=== PATIENT | female | born 1960 | race Caucasian/White ===

== ENCOUNTER 2018-07-22 06:42 | Day surgery (SDC) | payer OTHER, MEDICAID, SELFPAY ==
[2018-07-22] VITALS (8 sets, daily range): BP systolic 96–140; BP diastolic 64–88; PULSE 65–85; RESP 10–18; TEMP 36.1–36.3; O2SAT 94–96; BMI 47.0
--- NOTE | 2018-07-22 | PATH_ITS ---
[facility] Accession Number: [id number] . 01 Material submitted: . PART A: HEPATIC FLEXURE POLYP PART B: TRANSVERSE COLON POLYP . 02 Diagnosis: A. Hepatic Flexure Polyp: Tubular adenoma. . B. Transverse Colon Polyp: Tubular adenoma. MRV/07/26/2018 . 02 Electronically signed: . Kwame Carter MD, PhD, Pathologist NPI- [id number] . 01 Gross description: . (A) Received in formalin, labeled hepatic flexure polyp, is a fragment of bermeo-white tissue (0.6 x 0.5 x 0.1 cm). Entirely submitted in cassette A1. (B) Received in formalin, labeled transverse colon polyp, is a fragment of bermeo-white tissue (0.5 x 0.4 x 0.2 cm). Entirely submitted in cassette B1. ([id number]) /OZO . 02 Pathologist provided ICD-10: D12.3 . 02 CPT . 823046, [id number] Performed at: 01 [facility] [address] [place] [id number] MD Ortiz Stanford MD Phone: [phone] Performed at: 02 [facility] [address] [place], [place] [id number] MD Pantera Yo MD Phone: [phone]
[2018-07-22] MEDS: SODIUM CHLORIDE 0.9% 1,000 ML 200 ML IV (07:39)
[2018-07-22] MEDS: MIDAZOLAM 5 MG/5 ML VIAL IV (09:07)
[2018-07-22] MEDS: fentaNYL 250 MCG/5 ML INJ IV (09:08)
--- NOTE | 2018-07-22 09:45 | SUR.PHASEI ---
arrived, arousable, fiollows commands soft belly tolerates fluids
--- NOTE | 2018-07-22 09:59 | PM.HP.1 ---
History of Present Illness Date Patient Seen: 07/22/18 Time Patient Seen: 09:59 Chief complaint: [id number] SCREENING COLONOSCOPY Narrative: Pleasant 57-year-old lady with a strong family history of colon cancer. She also has a history of Crohn's disease. She reports that she has had a colonoscopy every 5 years since she was 48 so this is her 3rd scheduled procedure. She says that her father had colon cancer as well as multiple paternal aunts. Someone on her mother's side has colon malignancy as well but she is not sure exactly the relation. She is uncertain if she has had polyps at prior procedures but she remembers being told to show up every 5 years and so that is what she does. She denies any new problems or symptoms related to the function of her GI tract. Patient History Medical History Anxiety (Chronic) Chronic back pain (Chronic) Crohn's disease (Chronic) Depression (Chronic) Gout (Chronic) Hearing loss (Chronic) History of urinary incontinence (Chronic) Kidney stones (Chronic) Migraines (Chronic) Osteoarthritis (Chronic) Rheumatoid arthritis (Chronic) Shoulder pain (Chronic) Sleep apnea (Chronic) Vertigo (Chronic) Family & Social History Family History: Reviewed 07/22/18 by Ninfa Dove MD Social History: household members family Tobacco & Substance use: Smoking Status Current every day smoker Meds Home Medications Medication Instructions Recorded Confirmed Type omeprazole 20 mg PO BID #180 cap 03/27/17 07/22/18 Rx atenolol 50 mg tablet See Label Instructions .ROUTE 04/19/18 07/22/18 Rx .COMPLEX #45 tab citalopram 20 mg tablet See Label Instructions PO BID #60 04/19/18 07/22/18 Rx tab furosemide 40 mg tablet See Label Instructions PO QDAY PRN 04/19/18 07/22/18 Rx #30 tab trazodone 50 mg tablet See Label Instructions PO HS PRN 04/19/18 07/22/18 Rx #180 tab alprazolam 0.25 mg tablet 0.25 mg PO Q8HP PRN #30 tab 06/30/18 07/22/18 Rx hydrocodone 7.5 mg-acetaminophen See Label Instructions .ROUTE 06/30/18 07/22/18 Rx 325 mg tablet .COMPLEX PRN #100 tab Allergies Allergy/AdvReac Type Severity Reaction Status Date / Time lidocaine [LIDOCAINE] Allergy Unknown Verified 07/22/18 08:36 Penicillins [PENICILLINS] Allergy Unknown Verified 07/22/18 08:36 prednisone [PREDNISONE] Allergy Unknown Verified 07/22/18 08:36 shellfish derived Allergy Unknown Verified 07/22/18 08:36 [SHELLFISH DERIVED] venom-honey bee Allergy Unknown Verified 07/22/18 08:36 [BEE VENOM (HONEY BEE)] procaine [PROCAINE] AdvReac Unknown Verified 07/22/18 08:36 Review of Systems Review of Systems All systems reviewed & are unremarkable except as noted in HPI and below Exam Vital Signs (past 8 hours): - 07/22/18 07:28 07/22/18 09:36 07/22/18 09:38 Temperature 97.3 F L 97.1 F L Pulse Rate 85 65 77 Respiratory Rate 18 16 10 L Blood Pressure 140/75 112/71 122/71 Pulse Oximetry 95 96 94 07/22/18 09:41 07/22/18 09:44 Temperature Pulse Rate 68 67 Respiratory Rate 16 12 Blood Pressure 96/67 104/64 Pulse Oximetry 95 95 Oxygen Delivery Method Room Air Oxygen Flow Rate 3 Narrative Exam Narrative: Pleasant but morbidly obese lady in no distress. HEENT: Normocephalic and atraumatic, pupils equal round reactive to light accommodation with anicteric sclera. Poor dentition is noted. Lungs: Clear bilaterally Heart: Distant heart sounds but regular rate and rhythm Abdomen: Very obese, globally tender to palpation, active bowel sounds Extremities: Warm and well perfused Assessment & Plan Plan: Assessment/Plan Narrative: Pleasant lady with multiple comorbidities who presents for a screening colonoscopy. We discussed the risks and benefits of the procedure the patient expressed desire to continue today.
--- NOTE | 2018-07-22 10:03 | PM.OP.1 ---
Operative Date/Time/Diagnoses Date of procedure: 07/22/18 Time of procedure: 10:03 Pre-op diagnosis: Family history of colon cancer Screening Post-op diagnosis: same Procedure & Clinicians Procedure: Colonoscopy to the cecum with polypectomy times 2 Same procedure as scheduled: Yes Indications: Last colonoscopy 5 years ago Surgeon: Ninfa Dove Anesthesia Type: Sedation (Versed 9 mg; fentanyl 300 mcg) Operative Notes Findings: 1. Adequate prep 2. Two sessile polyps. One at the hepatic flexure and the other in the mid transverse colon. Both removed with cold forceps and submitted for pathology 3. No obvious inflammation of the mucosa is appreciated 4. Mildly tortuous: 5. Minimal sigmoid diverticulosis. 6. Grade 2 internal hemorrhoids Closure Type: not applicable Specimen(s): other (Polyps as noted and findings) Estimated Blood Loss (mL): 2 Procedure in detail: After obtaining informed consent, the patient was brought to the GI suite and placed in the left lateral decubitus position on the examination table. After placement of appropriate monitors, the patient was given incremental doses of Versed and Fentanyl until an appropriate level of sedation was achieved. A time out was held per SCOAP protocol. A digital rectal examination was performed and did not reveal any masses or obstructing lesions. The colonoscope was gently passed into the patient's anus and the entire colon navigated to the level of the cecum with mild difficulty. Once in the cecum, the scope was withdrawn being sure to go before and beyond all mucosal folds and prominences and get an excellent examination. The findings are noted above. At the level of the rectal vault, the scope was retroflexed and the internal anal canal was examined. The scope was straightened and air aspirated from the colon. The instrument was removed from the patient's body and the procedure was concluded. The patient was allowed to awaken from sedation without difficulty and taken to the post-anesthesia care unit in good condition. Total sedation time was 37 min Total withdrawal time was 21 min Complications: none Condition: stable Disposition: PACU Plan for aftercare: 1. Discharge to home 2. Plan for next colonoscopy in 5 years or as clinically indicated 3. We will contact you with pathology results and any further recommendations
== END 2018-07-22 10:50 | disposition home or self-care (01) ==
PROVIDERS: Family Provider Family Medicine; PCP Family Medicine; Visit Provider Surgery
PROC: 0DJD8ZZ Inspection of Lower Intestinal Tract, Via Natural or Artificial Opening Endoscopic (ICD-10-PCS; CPT 45378; principal; 2018-07-22 07:45)
DX: Z12.11 Encounter for screening for malignant neoplasm of colon (principal); D12.3 Benign neoplasm of transverse colon; K50.90 Crohn's disease, unspecified, without complications; K64.1 Second degree hemorrhoids; E66.01 Morbid (severe) obesity due to excess calories; Z68.42 Body mass index [BMI] 45.0-49.9, adult; M06.9 Rheumatoid arthritis, unspecified; F41.9 Anxiety disorder, unspecified; F32.9 Major depressive disorder, single episode, unspecified; G47.30 Sleep apnea, unspecified; Z80.0 Family history of malignant neoplasm of digestive organs; M54.9 Dorsalgia, unspecified; G89.29 Other chronic pain; F17.200 Nicotine dependence, unspecified, uncomplicated; Z79.899 Other long term (current) drug therapy
CPT/HCPCS: 45380; 88305; 99152; 99153; J2250; J3010

== ENCOUNTER 2018-12-13 18:24 | Emergency (ER) | payer OTHER, MEDICAID, SELFPAY ==
[2018-12-13 18:27] VITALS: BP 124/74; PULSE 70; RESP 22; TEMP 37.4; O2SAT 96
--- NOTE | 2018-12-13 18:44 | ED_ITS ---
HPI - Extremity Problem General Chief complaint: Extremity Problem,Nontraumatic Stated complaint: Leg pain Time Seen by Provider: 12/13/18 18:43 Source: patient Mode of arrival: ambulatory Limitations: no limitations History of Present Illness HPI Narrative: Patient is a 58-year-old female who underwent a heart catheterization with access the right femoral artery several days ago. She states since then she has had pain in her right leg radiating down her right foot. She has been taking her pain medication at home without any relief. No chest pain or shortness of breath. She called her funeral workers who told her to come to the emergency department to evaluate for possible DVT. Related Data Previous Rx's Medication Instructions Recorded omeprazole 20 mg PO BID #180 cap 03/27/17 atenolol 50 mg tablet See Rx Instructions .ROUTE 04/19/18 .COMPLEX #45 tab citalopram 20 mg tablet See Rx Instructions PO BID #60 tab 04/19/18 furosemide 40 mg tablet See Rx Instructions PO QDAY PRN 04/19/18 #30 tab trazodone 50 mg tablet See Rx Instructions PO HS PRN #180 04/19/18 tab hydrocodone 7.5 mg-acetaminophen See Rx Instructions .ROUTE 11/29/18 325 mg tablet .COMPLEX PRN #100 tab MDD EXEMPT alprazolam 0.25 mg tablet 0.25 mg PO Q8HP PRN #30 tab 11/30/18 Allergies Allergy/AdvReac Type Severity Reaction Status Date / Time lidocaine [LIDOCAINE] Allergy Unknown Verified 07/22/18 08:36 Penicillins [PENICILLINS] Allergy Unknown Verified 07/22/18 08:36 prednisone [PREDNISONE] Allergy Unknown Verified 07/22/18 08:36 shellfish derived Allergy Unknown Verified 07/22/18 08:36 [SHELLFISH DERIVED] venom-honey bee Allergy Unknown Verified 07/22/18 08:36 [BEE VENOM (HONEY BEE)] procaine [PROCAINE] AdvReac Unknown Verified 07/22/18 08:36 Review of Systems Constitutional Denies fever(s) and Denies headache(s) ENT Ears, Nose, Mouth, and Throat: Denies headache(s) Cardiovascular Denies chest pain and Denies dyspnea Respiratory Denies dyspnea Gastrointestinal Gastrointestinal: Denies abdominal pain, Denies nausea and Denies vomiting Musculoskeletal Comments: Pain radiating down her right leg Integumentary/Breasts Denies rash Neurologic Denies headache(s) Hematologic/Lymphatic Denies easy bleeding and Denies easy bruising PFSH Social History household members: family Smoking Status: Current every day smoker Exam Initial Vital Signs Initial Vital Signs: Vital Signs Temperature 99.3 F 12/13/18 18:27 Pulse Rate 70 12/13/18 18:27 Respiratory Rate 22 12/13/18 18:27 Blood Pressure 124/74 12/13/18 18:27 Pulse Oximetry 96 12/13/18 18:27 Const General: cooperative, healthy appearing, comfortable, well developed, well groomed and No acute distress Orientation: alert, awake and oriented x3 HENMT Head: normal to inspection and normocephalic Chest Chest: normal inspection of the chest Breast inspection: normal inspection of the breasts Resp Effort & Inspection: normal respiratory effort Cardio Rate: regular rate GI Inspection: non-distended Palpation: soft Skin Other: No bruising or redness in the right proximal anterior thigh. Neuro General: alert, awake and oriented x3 Extrem Other: Tenderness to palpation on the medial aspect of the right thigh and behind the right knee. Psych Appearance: grossly normal and well kempt Course Orders Ordered: ED Orders 12/13/18 18:49 US periph venous low extrem rt Stat Vital Signs - 8 hr 12/13/18 18:27 12/13/18 19:00 12/13/18 20:19 Temperature 99.3 F Pulse Rate 70 103 H 57 L Respiratory Rate 22 14 19 Blood Pressure 124/74 Blood Pressure [Left Arm] 113/73 97/58 L Pulse Oximetry 96 96 92 12/13/18 20:30 12/13/18 21:05 Temperature Pulse Rate 53 L Respiratory Rate 16 Blood Pressure Blood Pressure [Left Arm] 113/67 94/54 L Pulse Oximetry 94 MDM - Extremity (Nontraumatic) Imaging Data Right DVT ultrasound: Radiologist's impression: PROCEDURE: US PERIPH VENOUS LOW EXTREM RT INDICATIONS: RIGHT LEG PAIN 1 WEEK POST ANGIO-CATH TECHNIQUE: Real-time imaging, as well as color and pulse Doppler interrogation, were performed of the lower extremity deep veins from the inguinal ligament to the popliteal fossa. COMPARISON: None. FINDINGS: The deep veins are normally compressible, and free of intraluminal thrombus. Color and pulse Doppler demonstrate normal phasic intraluminal flow. There is normal augmentation response to distal compression maneuver. IMPRESSION: No DVT in the right lower extremity. Dictated by: Santos Pope M.D. on 12/13/2018 at 20:53 Approved by: Santos Pope M.D. on 12/13/2018 at 20:54 ECG Data Attestation EKG: I personally reviewed and interpreted this ECG as follows: Prior ECG tracings: not available for review Interpretation: Sinus rhythm Ventricular rate is 60 Normal axis Normal QRS Normal QTC No ST T wave changes MDM Narrative Medical decision making narrative: No DVT right lower extremity per ultrasound. No signs of infection. She does have full range of motion of her right lower extremity. Hold on further workup for now. Patient was given return precautions. She expressed understanding and agreement with plan. Discharge Plan Departure Patient Disposition: Home Clinical Impression: Acute leg pain Qualifiers: Laterality: right Qualified Code(s): M79.604 - Pain in right leg Discharge Date/Time: 12/13/18 21:24 Interventions: ED Discharge Assessment Last Done: 12/13/18 21:20 Instructions: DI for Leg Pain Activity Restrictions/Additional Instructions: Continue all of your medications as directed. Continue your home pain medication. Contact your funeral workers for follow-up. Return to the emergency department for any new or worsening symptoms Prescriptions: No Action omeprazole 20 MG capsule,delayed release(DR/EC) 20 mg PO BID Qty: 180 RF: 3 citalopram [Celexa] 20 mg tablet See Rx Instructions PO BID Qty: 60 RF: 3 atenolol 50 mg tablet See Rx Instructions .ROUTE .COMPLEX Qty: 45 RF: 3 trazodone 50 mg tablet See Rx Instructions PO HS PRN (Reason: insomnia) Qty: 180 RF: 0 furosemide 40 mg tablet See Rx Instructions PO QDAY PRN (Reason: edema) Qty: 30 RF: 3 hydrocodone-acetaminophen [[place]] 7.5-325 mg tablet See Rx Instructions .ROUTE .COMPLEX MDD EXEMPT PRN (Reason: pain) Qty: 100 RF: 0 alprazolam 0.25 mg tablet 0.25 mg PO Q8HP PRN (Reason: anxiety/agitation) Qty: 30 RF: 0 Referrals: Ozzie Sheriff MD [Primary Care Provider] -
--- NOTE | 2018-12-13 18:49 | DI.US.S_ITS ---
PROCEDURE: US PERIPH VENOUS LOW EXTREM RT INDICATIONS: RIGHT LEG PAIN 1 WEEK POST ANGIO-CATH TECHNIQUE: Real-time imaging, as well as color and pulse Doppler interrogation, were performed of the lower extremity deep veins from the inguinal ligament to the popliteal fossa. COMPARISON: None. FINDINGS: The deep veins are normally compressible, and free of intraluminal thrombus. Color and pulse Doppler demonstrate normal phasic intraluminal flow. There is normal augmentation response to distal compression maneuver. IMPRESSION: No DVT in the right lower extremity. Dictated by: Santos Pope M.D. on 12/13/2018 at 20:53 Approved by: Santos Pope M.D. on 12/13/2018 at 20:54
[2018-12-13 19:00] VITALS: BP 113/73; PULSE 103; RESP 14; O2SAT 96
[2018-12-13 20:19] VITALS: BP 97/58; PULSE 57; RESP 19; O2SAT 92
[2018-12-13 20:30] VITALS: BP 113/67; PULSE 53; RESP 16; O2SAT 94
[2018-12-13 21:05] VITALS: BP 94/54
== END 2018-12-13 21:24 | disposition home or self-care (01) ==
PROVIDERS: Emergency Provider Emergency Medicine; Family Provider Family Medicine; PCP Family Medicine
DX: M79.604 Pain in right leg (principal)
CPT/HCPCS: 36591; 93005; 93971; 99283; 99284

== ENCOUNTER 2019-09-17 03:07 | Emergency (ER) | payer OTHER, MEDICAID, SELFPAY ==
--- NOTE | 2019-09-17 03:17 | DI.RAD.S_ITS ---
PROCEDURE: XR CHEST 1V INDICATIONS: chest pain TECHNIQUE: One view of the chest was acquired. COMPARISON: [facility], , CHEST 2 VIEW, 09/19/2017, 17:27. FINDINGS: Surgical changes and devices: None. Lungs and pleura: Lungs are clear. No pleural effusions or pneumothorax. Mediastinum: Mediastinal contours appear normal. Heart size is mildly enlarged. Bones and chest wall: No suspicious bony lesions. Overlying soft tissues appear unremarkable. IMPRESSION: Mild cardiomegaly without overt heart failure. No pneumonia. Note: The preliminary ED physician interpretation and the final report are concordant. Dictated by: Sami Choi M.D. on 09/17/2019 at 7:09 Approved by: Sami Choi M.D. on 09/17/2019 at 7:10
[2019-09-17 03:19] VITALS: BP 96/62; PULSE 57; RESP 20; TEMP 36.6; O2SAT 97
[2019-09-17 03:30] VITALS: BP 96/62; PULSE 58; RESP 20; O2SAT 96
--- NOTE | 2019-09-17 03:35 | ED.CHESTPAIN ---
HPI - Chest Pain General Chief Complaint: Chest Pain Stated Complaint: Chest pain Time Seen by Provider: 09/17/19 03:07 Source: patient and EMS Mode of arrival: EMS Limitations: no limitations History of Present Illness HPI narrative: Patient is a 59-year-old female with known coronary artery disease and stents placed in December 2018 at [facility] presenting this evening with chest discomfort. She says she had she has restroom while on the toilet she had chest pain that radiated down her left arm. She got nitroglycerin prior to arrival her chest pain is improving. Her blood pressure however decreased at after the nitroglycerin. She denies any shortness of breath. She apparently is supposed to be on a Holter monitor however the battery or something in the of and happened tonight is not on the Holter monitor. Patient states she is being considered for an ICD. She said pain this evening feels like previous NE. complaint: chest pain Duration: improved Onset: during rest Pain location: substernal Quality: sharp Pain radiation: LUE Related Data Previous Rx's Medication Instructions Recorded omeprazole 20 mg PO BID #180 cap 03/27/17 furosemide 40 mg tablet See Rx Instructions PO QDAY PRN 04/19/18 #30 tab apixaban 5 mg tablet 5 mg PO BID #180 tab 08/15/19 atorvastatin 40 mg tablet 40 mg PO DAILY #90 tab 08/15/19 clopidogrel 75 mg tablet 75 mg PO DAILY #90 tab 08/15/19 lisinopril 5 mg tablet 5 mg PO DAILY #90 tab 08/15/19 metoprolol tartrate 25 mg tablet 25 mg PO BID #180 tab 08/15/19 hydrocodone 7.5 mg-acetaminophen See Rx Instructions .ROUTE 08/19/19 325 mg tablet .COMPLEX PRN #100 tab MDD EXEMPT venlafaxine 37.5 mg 37.5 mg PO BEDTIME #30 cap 08/23/19 capsule,extended release 24 hr alprazolam 0.25 mg tablet 0.25 mg PO Q8HP PRN #40 tab 09/14/19 Allergies Allergy/AdvReac Type Severity Reaction Status Date / Time lidocaine [LIDOCAINE] Allergy Unknown Verified 09/14/19 14:53 Penicillins [PENICILLINS] Allergy Unknown Verified 09/14/19 14:53 prednisone [PREDNISONE] Allergy Unknown Verified 09/14/19 14:53 shellfish derived Allergy Unknown Verified 09/14/19 14:53 [SHELLFISH DERIVED] venom-honey bee Allergy Unknown Verified 09/14/19 14:53 [BEE VENOM (HONEY BEE)] procaine [PROCAINE] AdvReac Unknown Verified 09/14/19 14:53 Review of Systems Review of Systems Narrative: GENERAL: Denies chills, fatigue, malaise, fever, sweats, travel HEENT: Denies sinus pain, ear pain, sore throat, difficulty swallowing, neck pain RESPIRATORY: Denies dyspnea, cough, wheezing, hemoptysis, sputum. CARDIOVASCULAR: See HPI GASTROINTESTINAL: Denies nausea, vomiting, abdominal pain, diarrhea, constipation, melena. : Denies dysuria, frequency, incontinence, hematuria, urinary retention, flank pain. MUSCULOSKELETAL: Denies weakness, joint pain, or bony pain SKIN: No rash, no erythema, no pruritus NEUROLOGIC: Denies weakness, dizziness, headache, numbness, change in speech, confusion PSYCHIATRIC: No concerning psychosocial issues. 12 point review of systems is negative except for those stated above and HPI Patient History Medical History (Updated 09/17/19 @ 05:10 by Komal Guzman DO) Anxiety (Chronic) Chronic back pain (Chronic) Coronary artery disease (Acute) Crohn's disease (Chronic) Depression (Chronic) Esophageal reflux (Acute) Gout (Chronic) Hearing loss (Chronic) History of urinary incontinence (Chronic) Kidney stones (Chronic) Migraines (Chronic) Osteoarthritis (Chronic) Rheumatoid arthritis (Chronic) Shoulder pain (Chronic) Sleep apnea (Chronic) Vertigo (Chronic) Surgical History History of hysterectomy (Acute ~2000) Family History Brother Age: 54 Hypertension High cholesterol Father Diabetes mellitus Heart disease Hypertension Grandmother Heart disease Mother Age: 78 Heart disease Grandfather Stroke Grandfather Stroke Grandmother Cancer Sister Liver failure Social History household members: family Smoking Status: Current every day smoker tobacco type: cigarettes alcohol intake frequency: 0-2 drinks per day Exam Initial Vital Signs Initial Vital Signs: Vital Signs Temperature 97.8 F 09/17/19 03:19 Pulse Rate 57 L 09/17/19 03:19 Respiratory Rate 20 09/17/19 03:19 Blood Pressure 96/62 09/17/19 03:19 Pulse Oximetry 97 09/17/19 03:19 GENERAL: Overweight well-appearing female and in no acute distress. HEENT: Head atraumatic,EOMI, pupils reactive, face symmetric, moist mucous membranes CARDIOVASCULAR: Regular rate and rhythm without murmurs, rubs or gallops. RESPIRATORY: Breath sounds equal bilaterally, no wheezes rales or rhonchi. ABDOMEN: Soft, nontender. Normoactive bowel sounds all 4 quadrants. No guarding or rebound. EXTREMITIES: Normal range of motion, no clubbing or edema. Neurovascularly intact NEUROLOGICAL: Alert and oriented x4.Normal gait and speech. Cranial nerves II through XII grossly intact. SKIN: Warm, dry, no laceration, no petechiae, no rashes or lesions. Course Orders Ordered: ED Orders 09/17/19 03:13 EKG-12 Lead Stat 09/17/19 03:17 XR chest 1V Stat 09/17/19 03:43 B Type Natriuretic Peptide Stat Complete Blood Count AUTO DIFF Stat Comprehensive Metabolic Panel Stat Lipase Stat Partial Thromboplastin Time Stat Prothrombin Time INR Stat Troponin & CK Cardiac Panel Stat Consultations Consultation #1: Dr. Rock, hospitalist at [facility] updated patient's symptoms test results she reviewed records. Agrees to transfer for chest pain observation Time: 04:51 Vital Signs Vital signs: Vital Signs - 8 hr 09/17/19 03:19 09/17/19 03:30 09/17/19 04:00 Temperature 97.8 F Pulse Rate 57 L 58 L 58 L Respiratory Rate 20 20 16 Blood Pressure 96/62 Blood Pressure [Left Arm] 96/62 107/63 Pulse Oximetry 97 96 96 09/17/19 04:30 09/17/19 05:00 Temperature 98.0 F Pulse Rate 59 L 58 L Respiratory Rate 18 16 Blood Pressure Blood Pressure [Left Arm] 110/68 113/52 L Pulse Oximetry 98 96 MDM - Chest Pain Lab Data Attestation: I reviewed the patient's lab results. Result diagrams: 09/17/19 03:43 09/17/19 03:43 Labs: Lab Results 09/17/19 09/17/19 09/17/19 Range/Units 03:43 03:43 03:43 WBC 10.6 (4.5-11.0) X10^3/uL RBC 4.45 (4.0-5.2) X10^6/uL Hgb 13.6 (12.0-16.0) g/dL Hct 39.7 (36-46) % MCV 89.2 (80-100) fL MCH 30.6 (26-34) PG MCHC 34.3 (30-36) % RDW 14.0 (11.6-14.8) % Plt Count 250 (150-400) X10^3/uL Neut % (Auto) 65.9 (50-75) % Lymph % (Auto) 23.4 L (25-40) % Turner % (Auto) 7.9 (3-14) % Eos % (Auto) 2.1 (2-4) % Baso % (Auto) 0.7 (0-2) % Neut # (Auto) 7000 (9505-4075) /uL Lymph # (Auto) 2500 (7393-8985) /uL Turner # (Auto) 800 (0-900) /uL Eos # (Auto) 200 (0-450) /uL Baso # (Auto) 100 (0-100) /uL PT 11.8 (10.1-12.7) SECONDS INR 1.0 (0.9-1.3) APTT 38 H (26.4-36.2) SECONDS Sodium (137-145) mmol/L Potassium (3.4-5.1) mmol/L Chloride (98-107) mmol/L Carbon Dioxide (22-32) mmol/L BUN (7-17) mg/dL Creatinine (0.52-1.04) mg/dL Estimated GFR (>60) mL/min BUN/Creatinine Ratio (6-22) Glucose (80-110) mg/dL Calcium (8.4-10.2) mg/dL Total Bilirubin (0.2-1.3) mg/dL AST (14-36) IU/L ALT (<35) IU/L Alkaline Phosphatase (38-126) U/L Total Creatine Kinase (30-135) U/L CK-MB (CK-2) CK-MB (CK-2) Rel Index Troponin I (0.01-0.034) ng/mL B-Natriuretic Peptide < 100 (<100) Total Protein (6.3-8.2) g/dL Albumin (3.5-5.0) g/dL Globulin (1.7-4.1) g/dL Albumin/Globulin Ratio (1.0-2.8) Lipase (23-300) U/L 09/17/19 Range/Units 03:43 WBC (4.5-11.0) X10^3/uL RBC (4.0-5.2) X10^6/uL Hgb (12.0-16.0) g/dL Hct (36-46) % MCV (80-100) fL MCH (26-34) PG MCHC (30-36) % RDW (11.6-14.8) % Plt Count (150-400) X10^3/uL Neut % (Auto) (50-75) % Lymph % (Auto) (25-40) % Turner % (Auto) (3-14) % Eos % (Auto) (2-4) % Baso % (Auto) (0-2) % Neut # (Auto) (6697-9495) /uL Lymph # (Auto) (4253-8674) /uL Turner # (Auto) (0-900) /uL Eos # (Auto) (0-450) /uL Baso # (Auto) (0-100) /uL PT (10.1-12.7) SECONDS INR (0.9-1.3) APTT (26.4-36.2) SECONDS Sodium 139 (137-145) mmol/L Potassium 4.0 (3.4-5.1) mmol/L Chloride 106 (98-107) mmol/L Carbon Dioxide 26 (22-32) mmol/L BUN 15 (7-17) mg/dL Creatinine 0.50 L (0.52-1.04) mg/dL Estimated GFR > 60.0 (>60) mL/min BUN/Creatinine Ratio 30.0 H (6-22) Glucose 140 H (80-110) mg/dL Calcium 9.0 (8.4-10.2) mg/dL Total Bilirubin 0.3 (0.2-1.3) mg/dL AST 17 (14-36) IU/L ALT 15 (<35) IU/L Alkaline Phosphatase 59 (38-126) U/L Total Creatine Kinase 45 (30-135) U/L CK-MB (CK-2) TNP CK-MB (CK-2) Rel Index TNP Troponin I < 0.012 (0.01-0.034) ng/mL B-Natriuretic Peptide (<100) Total Protein 6.4 (6.3-8.2) g/dL Albumin 3.7 (3.5-5.0) g/dL Globulin 2.7 (1.7-4.1) g/dL Albumin/Globulin Ratio 1.4 (1.0-2.8) Lipase 101 (23-300) U/L ECG Data Attestation: I personally reviewed and interpreted this ECG as follows: Prior ECG tracings: available for review Interpretation: Normal sinus rhythm rate 57 p.r. in T3 QRS [address] elevations she pressure to or T-wave inversion. Q-waves noted in lead 3 only similar to previous EKGs. MDM Narrative Medical decision making narrative: Patient received nitroglycerin prior to arrival. However pain was quite severe and similar to previous NE. Her pain was improving and resolved in the ED. Her blood pressure initially was stable and then decreased to a systolic of 80s and she responded well to a 500 cc bolus. She has no shortness of breath. She is on Eliquis and Plavix, at this time I do not think PE. Patient being transferred to [facility]. Stress testing and other cardiac testing not available at [facility]. Dr. Rock accepts patient. I do not find in the records anything about an ICD. Discharge Plan Departure Patient Disposition: [facility] Clinical Impression: Chest pain Qualifiers: Chest pain type: unspecified Qualified Code(s): R07.9 - Chest pain, unspecified Prescriptions: No Action omeprazole 20 MG capsule,delayed release(DR/EC) 20 mg PO BID Qty: 180 RF: 3 furosemide 40 mg tablet See Rx Instructions PO QDAY PRN (Reason: edema) Qty: 30 RF: 3 atorvastatin 40 mg tablet 40 mg PO DAILY Qty: 90 RF: 3 clopidogrel 75 mg tablet 75 mg PO DAILY Qty: 90 RF: 0 lisinopril 5 mg tablet 5 mg PO DAILY Qty: 90 RF: 3 metoprolol tartrate 25 mg tablet 25 mg PO BID Qty: 180 RF: 3 Eliquis 5 mg tablet 5 mg PO BID Qty: 180 RF: 2 hydrocodone-acetaminophen [[place]] 7.5-325 mg tablet See Rx Instructions .ROUTE .COMPLEX MDD EXEMPT PRN (Reason: pain) Qty: 100 RF: 0 venlafaxine 37.5 mg capsule,extended release 24hr 37.5 mg PO BEDTIME Qty: 30 RF: 5 alprazolam 0.25 mg tablet 0.25 mg PO Q8HP PRN (Reason: anxiety/agitation) Qty: 40 RF: 0 Referrals: Ozzie Sheriff MD [Primary Care Provider] -
[2019-09-17 04:00] VITALS: BP 107/63; PULSE 58; RESP 16; O2SAT 96
[2019-09-17 04:00] LABS: Add Manual Diff / Slide Review NO; Basophils Absolute Auto 100 /uL (0-100); Basophils Percent Auto 0.7 % (0-2); Eosinophils Absolute Auto 200 /uL (0-450); Eosinophils Percent Auto 2.1 % (2-4); Hematocrit 39.7 % (36-46); Hemoglobin 13.6 g/dL (12.0-16.0); Lymphocytes Absolute Auto 2500 /uL (1100-4500); Lymphocytes Percent Auto 23.4 % (25-40); Mean Corpuscular HGB Conc 34.3 % (30-36); Mean Corpuscular Hemoglobin 30.6 PG (26-34); Mean Corpuscular Volume 89.2 fL (80-100); Monocytes Absolute Auto 800 /uL (0-900); Monocytes Percent Auto 7.9 % (3-14); Neutrophils Absolute Auto 7000 /uL (1500-7000); Neutrophils Percent Auto 65.9 % (50-75); Platelet Count 250 X10^3/uL (150-400); Red Blood Cell Count 4.45 X10^6/uL (4.0-5.2); White Blood Cell Count 10.6 X10^3/uL (4.5-11.0)
[2019-09-17 04:02] LABS: Prothrombin Time 11.8 SECONDS (10.1-12.7)
[2019-09-17 04:05] LABS: PTT Partial Thromboplastin Tim 38 SECONDS (26.4-36.2)
[2019-09-17 04:07] LABS: Alanine Aminotransferase 15 IU/L (<35); Albumin 3.7 g/dL (3.5-5.0); Albumin Globulin Ratio 1.4 (1.0-2.8); Alkaline Phosphatase 59 U/L (38-126); Aspartate Aminotransferase 17 IU/L (14-36); Bilirubin Total 0.3 mg/dL (0.2-1.3); Blood Urea Nitrogen 15 mg/dL (7-17); Carbon Dioxide 26 mmol/L (22-32); Chloride 106 mmol/L (98-107); Creatine Kinase 45 U/L (30-135); Estimated Glomerular Filt Rate > 60.0 mL/min (>60); Globulin 2.7 g/dL (1.7-4.1); Glucose 140 mg/dL (80-110); HEMOLYSIS < 15 (0-50); Lipase 101 U/L (23-300); Sodium 139 mmol/L (137-145); Total Protein 6.4 g/dL (6.3-8.2)
[2019-09-17 04:18] LABS: Troponin I < 0.012 ng/mL (0.01-0.034)
[2019-09-17 04:21] LABS: B Type Natriuretic Peptide < 100 (<100)
[2019-09-17 04:30] VITALS: BP 110/68; PULSE 59; RESP 18; O2SAT 98
[2019-09-17 05:00] VITALS: BP 113/52; PULSE 58; RESP 16; TEMP 36.7; O2SAT 96
== END 2019-09-17 07:13 | disposition short-term general hospital (02) ==
PROVIDERS: Emergency Provider Emergency Medicine; PCP Family Medicine
DX: R07.9 Chest pain, unspecified (principal); I25.10 Atherosclerotic heart disease of native coronary artery without angina pectoris; Z95.5 Presence of coronary angioplasty implant and graft
CPT/HCPCS: 36415; 71045; 80053; 82550; 83690; 83880; 84484; 85025; 85610; 85730; 93005; 99283; 99285

== ENCOUNTER → 2019-10-07 15:24 | Outpatient (CLI) | payer OTHER, MEDICAID, SELFPAY ==
--- NOTE | 2019-10-07 15:25 | DI.RAD.S_ITS ---
PROCEDURE: XR CHEST 2V INDICATIONS: on going cough TECHNIQUE: 2 views of the chest were acquired. COMPARISON: [facility], , CHEST 2 VIEW, 09/19/2017, 17:27. [facility], , CHEST 2 VIEW, 01/04/2017, 21:16. [facility], , XR CHEST 1V, 09/17/2019, 3:21. FINDINGS: Surgical changes and devices: None. Lungs and pleura: Lungs are clear, aside from right medial lung base air space opacity and right perihilar atelectasis. No pleural effusions or pneumothorax. Mediastinum: Mediastinal contours are normal. Heart size is normal. Bones and chest wall: No suspicious bony abnormalities. Soft tissues appear unremarkable. IMPRESSION: 1. Right medial lung base airspace opacity suspicious for aspiration or pneumonia. Neoplasm cannot be excluded and continued followup is recommended to resolution. Dictated by: Bashir JULIAN Interpreted: Dawit Hawkins MD on 10/07/2019 at 16:03 Approved by: Dawit Hawkins M.D. on 10/07/2019 at 16:22
== END ==
PROVIDERS: PCP Family Medicine; Visit Provider Family Medicine
DX: R05 Cough (principal); Z87.01 Personal history of pneumonia (recurrent)
CPT/HCPCS: 71046

== ENCOUNTER 2020-02-29 17:34 | Emergency (ER) | payer OTHER, MEDICAID, SELFPAY ==
[2020-02-29 17:41] VITALS: BP 140/86; PULSE 69; RESP 24; TEMP 36.4; O2SAT 97
[2020-02-29 18:12] LABS: Add Manual Diff / Slide Review NO; Basophils Absolute Auto 100 /uL (0-100); Basophils Percent Auto 0.9 % (0-2); Eosinophils Absolute Auto 300 /uL (0-450); Eosinophils Percent Auto 2.5 % (2-4); Hematocrit 42.6 % (36-46); Hemoglobin 14.2 g/dL (12.0-16.0); Lymphocytes Absolute Auto 3000 /uL (1100-4500); Lymphocytes Percent Auto 28.1 % (25-40); Mean Corpuscular HGB Conc 33.4 % (30-36); Mean Corpuscular Hemoglobin 30.4 PG (26-34); Mean Corpuscular Volume 90.9 fL (80-100); Monocytes Absolute Auto 900 /uL (0-900); Monocytes Percent Auto 8.7 % (3-14); Neutrophils Absolute Auto 6400 /uL (1500-7000); Neutrophils Percent Auto 59.8 % (50-75); Platelet Count 283 X10^3/uL (150-400); Red Blood Cell Count 4.68 X10^6/uL (4.0-5.2); Red Cell Distribution Width 14.6 % (11.6-14.8); White Blood Cell Count 10.6 X10^3/uL (4.5-11.0)
[2020-02-29 18:20] LABS: INR 1.2 (0.9-1.3); Prothrombin Time 13.8 SECONDS (10.1-12.7)
[2020-02-29 18:25] LABS: Alanine Aminotransferase 17 IU/L (<35); Albumin 4.1 g/dL (3.5-5.0); Albumin Globulin Ratio 1.3 (1.0-2.8); Alkaline Phosphatase 48 U/L (38-126); Aspartate Aminotransferase 26 IU/L (14-36); BUN Creatinine Ratio 23.2 (6-22); Bilirubin Total 0.3 mg/dL (0.2-1.3); Blood Urea Nitrogen 13 mg/dL (7-17); Calcium 9.2 mg/dL (8.4-10.2); Carbon Dioxide 25 mmol/L (22-32); Chloride 103 mmol/L (98-107); Estimated Glomerular Filt Rate > 60.0 mL/min (>60); Globulin 3.2 g/dL (1.7-4.1); Glucose 106 mg/dL (80-110); HEMOLYSIS 24 (0-50); Potassium 4.2 mmol/L (3.4-5.1); Sodium 137 mmol/L (137-145); Total Protein 7.3 g/dL (6.3-8.2)
[2020-02-29 18:36] LABS: PTT Partial Thromboplastin Tim 44 SECONDS (26.4-36.2)
[2020-02-29 18:42] VITALS: BP 105/58; PULSE 57; RESP 15; O2SAT 92
[2020-02-29 18:56] LABS: Lipase 97 U/L (23-300)
--- NOTE | 2020-02-29 19:05 | ED.GIBLEED ---
HPI - GI Bleed <DOLORES Mitchell - Last Filed: 02/29/20 20:27> General Chief complaint: GI Bleed Stated complaint: rectal bleeding Time Seen by Provider: 02/29/20 18:03 Source: patient Mode of arrival: Ambulatory Limitations: no limitations History of Present Illness HPI Narrative: This is a pleasant 59-year-old female, smoker, who presents to ED with chief complaint of intermittent bright rectal bleeding which started 6 days ago without abdominal pain, fever, chills, nausea or vomiting. Patient reports she is currently taking anticoagulant Plavix and Eliquis after she had IL and stent in placed in December 2019. Patient also has history of Crohn's disease and had GI bleed in 2018 but at that time she had severe abdominal pain which is different. Patient denies chest pain, breathing difficulty, lightheadedness, increasing abdominal pain from her usual mild cramping pain in left lower quadrant from Crohn's disease. Patient feels bloated in her abdomen and states probably from eating a salad. Patient reports she sees occasional blood when she wipes after bowel movements and partially saturated urinary pad the other day. Patient denies having history of hemorrhoids. Patient states she is here only after her daughter insisted get an evaluation. Significant medical history with hypertension, depression, GERD, COPD, anxiety, CAD. Last colonoscopy was done in July 2018 and had 2 polyps removal without obvious inflammation of the mucosa. There was a minimal sigmoid diverticulosis with a grade 2 internal hemorrhoids appreciate per colonoscopy. Related Data Previous Rx's Medication Instructions Recorded omeprazole 20 mg PO BID #180 cap 03/27/17 furosemide 40 mg tablet See Rx Instructions PO QDAY PRN 04/19/18 #30 tab atorvastatin 40 mg tablet 40 mg PO DAILY #90 tab 09/26/19 lisinopril 5 mg tablet 5 mg PO DAILY #90 tab 09/26/19 azithromycin 250 mg tablet See Rx Instructions PO .COMPLEX #6 10/06/19 tab benzonatate 100 mg capsule 100 mg PO BID PRN #30 cap 10/06/19 apixaban 5 mg tablet 5 mg PO BID #60 tab 11/10/19 clopidogrel 75 mg tablet 75 mg PO DAILY #30 tab 11/10/19 metoprolol tartrate 25 mg tablet 25 mg PO BID #60 tab 11/10/19 venlafaxine 37.5 mg 37.5 mg PO BEDTIME #90 cap 02/06/20 capsule,extended release 24 hr alprazolam 0.25 mg tablet 0.25 mg PO Q8HP PRN #40 tab 02/08/20 hydrocodone 7.5 mg-acetaminophen See Rx Instructions .ROUTE 02/17/20 325 mg tablet .COMPLEX PRN #100 tab MDD EXEMPT Allergies Allergy/AdvReac Type Severity Reaction Status Date / Time lidocaine [LIDOCAINE] Allergy Unknown Verified 09/14/19 14:53 Penicillins [PENICILLINS] Allergy Unknown Verified 09/14/19 14:53 prednisone [PREDNISONE] Allergy Unknown Verified 09/14/19 14:53 shellfish derived Allergy Unknown Verified 09/14/19 14:53 [SHELLFISH DERIVED] venom-honey bee Allergy Unknown Verified 09/14/19 14:53 [BEE VENOM (HONEY BEE)] procaine [PROCAINE] AdvReac Unknown Verified 09/14/19 14:53 Review of Systems <DOLORES Mitchell - Last Filed: 02/29/20 20:27> Review of Systems Narrative: General: Denies fever, chills, fatigue, malaise, sweats. HEENT: Denies sinus pain, ear pain, sore throat, difficulty swallowing, dizziness. Respiratory: Denies dyspnea, cough, wheezing, hemoptysis, sputum. Cardiovascular: Denies chest pain, palpitations, orthopnea, edema. Gastrointestinal: See HPI : Denies dysuria, frequency, incontinence, hematuria, urinary retention. Musculoskeletal: Denies weakness, joint pain or bony pain. Skin: Denies rash, skin lesions, or other. Neurologic: Denies weakness, headache, numbness, change in speech, confusion, seizures, incoordination. Psychiatric: No concerning psychosocial issues. 12-point review of systems is negative except for those stated above. Patient History <DOLORES Mitchell - Last Filed: 02/29/20 20:27> Medical History Anxiety (Chronic) Chronic back pain (Chronic) Coronary artery disease (Acute) Crohn's disease (Chronic) Depression (Chronic) Esophageal reflux (Acute) Gout (Chronic) Hearing loss (Chronic) History of urinary incontinence (Chronic) Kidney stones (Chronic) Migraines (Chronic) Osteoarthritis (Chronic) Rheumatoid arthritis (Chronic) Shoulder pain (Chronic) Sleep apnea (Chronic) Vertigo (Chronic) Surgical History History of hysterectomy (Acute ~2000) Family History Brother Age: 54 Hypertension High cholesterol Father Diabetes mellitus Heart disease Hypertension Grandmother Heart disease Mother Age: 78 Heart disease Grandfather Stroke Grandfather Stroke Grandmother Cancer Sister Liver failure Social History household members: family Smoking Status: Current every day smoker Smoking Status: Current every day smoker tobacco type: cigarettes alcohol intake frequency: 0-2 drinks per day Exam <DOLORES Mitchell - Last Filed: 02/29/20 20:27> Narrative Exam Narrative: GEN: Alert, oriented x 3, well appearing and nourished, and in no acute distress. Head: Normal cephalic, atraumatic. No scalp or temporal tenderness, palpable mass or rash. EYES: Pupils are equal, round, and reactive to light and accommodation. Extraocular muscles are intact bilaterally. There is no subconjunctival hemorrhage, exudate and sclera non-icteric. [place] palpebral conjunctivae. ENT: Hearing grossly intact. Nose without bleeding, purulent discharge or deviation. Mucous membrane dry, no mucosal lesion. Throat without erythema, tonsillar hypertrophy or exudate. Uvula in midline, airway patent. Neck: Trachea in midline. No JVD, non-tender without lymphadenopathy. No masses or thyroid megaly. Supple, non-tender and no meningeal signs. CARDIAC: Normal regular [place] rate and rhythm without murmurs, gallops, or rubs. No chest wall tenderness. +1 lower extremity edema bilaterally without cyanosis or pallor. Capillary refill is less than 2 seconds. RESPIRATORY: Lungs are clear to auscultate bilaterally. No cough, wheezes, rales, or rhonchi. No stridor, respiratory distress, increase work of breathing, or accessary muscle used. ABD: Abdomen soft, very mild tenderness in left lower quadrant to palpate reports has not increased from her daily pain level and non-distended. No guarding or rebound tenderness to palpate. Bowel sounds are normal in all 4 quadrants. There is no palpable masses or organomegaly. No hemorrhoids or bubba blood appreciated during rectal exam. Tea color stool appreciated with positive Hemoccult. EXT: Full painless ROM of all extremities with no loss of sensation, strength, effusion or edema. SKIN: Warm, dry, normal color for patient. No erythema, lesions or rash over visible areas. BACK: Nontender without deformity or crepitance. No flank tenderness. NEUROLOGICAL: Alert and oriented to place, time and person. Sensation and motor function intact bilaterally. No facial droops, dysphasia. PSYCHIATRIC: Good judgement and reason, without hallucinations, abnormal affect or abnormal behaviors during the examination. Initial Vital Signs Initial Vital Signs: Vital Signs Temperature 97.5 F L 02/29/20 17:41 Pulse Rate 69 02/29/20 17:41 Respiratory Rate 24 02/29/20 17:41 Blood Pressure 140/86 02/29/20 17:41 Pulse Oximetry 97 02/29/20 17:41 <Archie Moise DO - Last Filed: 03/01/20 01:00> Initial Vital Signs Initial Vital Signs: Vital Signs Temperature 97.5 F L 02/29/20 17:41 Pulse Rate 69 02/29/20 17:41 Respiratory Rate 24 02/29/20 17:41 Blood Pressure 140/86 02/29/20 17:41 Pulse Oximetry 97 02/29/20 17:41 Scores <BEBE MitchellP - Last Filed: 02/29/20 20:27> GCS Bennett coma scale eye opening: Spontaneous Yazmin coma scale verbal response: Orientated Yazmin coma scale motor response: Obey commands Bennett coma scale total score: 15 Course <BEBE MitchellP - Last Filed: 02/29/20 20:27> Orders Ordered: ED Orders 02/29/20 17:57 Complete Blood Count AUTO DIFF Stat Comprehensive Metabolic Panel Stat Lipase Stat Partial Thromboplastin Time Stat Prothrombin Time INR Stat Type and Screen Stat 02/29/20 19:48 Hemoglobin and Hematocrit Stat Vital Signs Vital signs: Vital Signs - 8 hr 02/29/20 17:41 02/29/20 18:42 02/29/20 20:07 Temperature 97.5 F L Pulse Rate 69 57 L 62 Respiratory Rate 24 15 20 Blood Pressure 140/86 124/65 Blood Pressure [Left Arm] 105/58 L Pulse Oximetry 97 92 94 <Archie Moise DO - Last Filed: 03/01/20 01:00> Orders Ordered: ED Orders 02/29/20 17:57 Complete Blood Count AUTO DIFF Stat Comprehensive Metabolic Panel Stat Lipase Stat Partial Thromboplastin Time Stat Prothrombin Time INR Stat Type and Screen Stat 02/29/20 19:48 Hemoglobin and Hematocrit Stat Vital Signs Vital signs: Vital Signs - 8 hr 02/29/20 17:41 02/29/20 18:42 02/29/20 20:07 Temperature 97.5 F L Pulse Rate 69 57 L 62 Respiratory Rate 24 15 20 Blood Pressure 140/86 124/65 Blood Pressure [Left Arm] 105/58 L Pulse Oximetry 97 92 94 MDM - GI Bleed <DOLORES Mitchell - Last Filed: 02/29/20 20:27> Differential Diagnosis Differential diagnosis: Likely hemorrhoids, gastritis, Lower gastrointestinal hemorrhage, anal fissure and other (Anemia, rectal hemorrhage, colon polyps, diverticulosis, diverticulitis) Medical Records Attestation: I reviewed the patient's medical records. Lab Data Attestation: I reviewed the patient's lab results. Result diagrams: 02/29/20 19:48 02/29/20 17:57 Labs: Lab Results 02/29/20 02/29/20 02/29/20 Range/Units 17:57 17:57 17:57 WBC 10.6 (4.5-11.0) X10^3/uL RBC 4.68 (4.0-5.2) X10^6/uL Hgb 14.2 (12.0-16.0) g/dL Hct 42.6 (36-46) % MCV 90.9 (80-100) fL MCH 30.4 (26-34) PG MCHC 33.4 (30-36) % RDW 14.6 (11.6-14.8) % Plt Count 283 (150-400) X10^3/uL Neut % (Auto) 59.8 (50-75) % Lymph % (Auto) 28.1 (25-40) % [place] % (Auto) 8.7 (3-14) % Eos % (Auto) 2.5 (2-4) % Baso % (Auto) 0.9 (0-2) % Neut # (Auto) 6400 (2830-0379) /uL Lymph # (Auto) 3000 (6641-0470) /uL [place] # (Auto) 900 (0-900) /uL Eos # (Auto) 300 (0-450) /uL Baso # (Auto) 100 (0-100) /uL PT 13.8 H (10.1-12.7) SECONDS INR 1.2 (0.9-1.3) APTT 44 H D (26.4-36.2) SECONDS Sodium 137 (137-145) mmol/L Potassium 4.2 (3.4-5.1) mmol/L Chloride 103 (98-107) mmol/L Carbon Dioxide 25 (22-32) mmol/L BUN 13 (7-17) mg/dL Creatinine 0.56 (0.52-1.04) mg/dL Estimated GFR > 60.0 (>60) mL/min BUN/Creatinine Ratio 23.2 H (6-22) Glucose 106 (80-110) mg/dL Calcium 9.2 (8.4-10.2) mg/dL Total Bilirubin 0.3 (0.2-1.3) mg/dL AST 26 (14-36) IU/L ALT 17 (<35) IU/L Alkaline Phosphatase 48 (38-126) U/L Total Protein 7.3 (6.3-8.2) g/dL Albumin 4.1 (3.5-5.0) g/dL Globulin 3.2 (1.7-4.1) g/dL Albumin/Globulin Ratio 1.3 (1.0-2.8) Lipase 97 (23-300) U/L Blood Type Antibody Screen 02/29/20 02/29/20 Range/Units 17:57 19:48 WBC (4.5-11.0) X10^3/uL RBC (4.0-5.2) X10^6/uL Hgb 14.3 (12.0-16.0) g/dL Hct 42.8 (36-46) % MCV (80-100) fL MCH (26-34) PG MCHC (30-36) % RDW (11.6-14.8) % Plt Count (150-400) X10^3/uL Neut % (Auto) (50-75) % Lymph % (Auto) (25-40) % [place] % (Auto) (3-14) % Eos % (Auto) (2-4) % Baso % (Auto) (0-2) % Neut # (Auto) (7100-9398) /uL Lymph # (Auto) (3700-7500) /uL [place] # (Auto) (0-900) /uL Eos # (Auto) (0-450) /uL Baso # (Auto) (0-100) /uL PT (10.1-12.7) SECONDS INR (0.9-1.3) APTT (26.4-36.2) SECONDS Sodium (137-145) mmol/L Potassium (3.4-5.1) mmol/L Chloride (98-107) mmol/L Carbon Dioxide (22-32) mmol/L BUN (7-17) mg/dL Creatinine (0.52-1.04) mg/dL Estimated GFR (>60) mL/min BUN/Creatinine Ratio (6-22) Glucose (80-110) mg/dL Calcium (8.4-10.2) mg/dL Total Bilirubin (0.2-1.3) mg/dL AST (14-36) IU/L ALT (<35) IU/L Alkaline Phosphatase (38-126) U/L Total Protein (6.3-8.2) g/dL Albumin (3.5-5.0) g/dL Globulin (1.7-4.1) g/dL Albumin/Globulin Ratio (1.0-2.8) Lipase (23-300) U/L Blood Type A Positive Antibody Screen Negative [facility] Narrative Medical decision making narrative: This is a 59-year-old female who has history of Crohn's disease and GI bleed in 2018 and who takes Eliquis and Plavix after cardiac catheterization and IL in December 2019 presents to ED with intermittent, nonpainful rectal bleeding for last 6 days. Patient denies increasing abdominal pain or constitutional symptoms. CBC test was unremarkable with H&H of 14.2/42.6 without leukocytosis. PT/PTT was 13.8/44. Platelet count was within normal of 283. Chemistry test was unremarkable. 2 hour repeat H&H was obtained with no changes. Abdomen exam was unremarkable without significant pain to palpate for changes from her baseline Crohn's disease pain. There is no bubba rectal bleeding appreciated but hemoccult was positive. Considered CT test of abdomen and pelvis due to patient's history of Crohn's disease but patient does not complain of abdominal pain, fever, chills, nausea or vomiting and patient declined imaging test at this time but will return to ED with any worsening symptoms. Patient appears to be taking PPI currently. Advise continue with current medication regimen. Strict return precautions were discussed with the patient and patient verbalized understanding and agreement with the treatment plan and patient stays she will follow-up with Dr. Sheriff tomorrow. <Archie Moise, DO - Last Filed: 03/01/20 01:00> Lab Data Labs: Lab Results 02/29/20 02/29/20 02/29/20 Range/Units 17:57 17:57 17:57 WBC 10.6 (4.5-11.0) X10^3/uL RBC 4.68 (4.0-5.2) X10^6/uL Hgb 14.2 (12.0-16.0) g/dL Hct 42.6 (36-46) % MCV 90.9 (80-100) fL MCH 30.4 (26-34) PG MCHC 33.4 (30-36) % RDW 14.6 (11.6-14.8) % Plt Count 283 (150-400) X10^3/uL Neut % (Auto) 59.8 (50-75) % Lymph % (Auto) 28.1 (25-40) % [place] % (Auto) 8.7 (3-14) % Eos % (Auto) 2.5 (2-4) % Baso % (Auto) 0.9 (0-2) % Neut # (Auto) 6400 (3906-6946) /uL Lymph # (Auto) 3000 (6548-1647) /uL [place] # (Auto) 900 (0-900) /uL Eos # (Auto) 300 (0-450) /uL Baso # (Auto) 100 (0-100) /uL PT 13.8 H (10.1-12.7) SECONDS INR 1.2 (0.9-1.3) APTT 44 H D (26.4-36.2) SECONDS Sodium 137 (137-145) mmol/L Potassium 4.2 (3.4-5.1) mmol/L Chloride 103 (98-107) mmol/L Carbon Dioxide 25 (22-32) mmol/L BUN 13 (7-17) mg/dL Creatinine 0.56 (0.52-1.04) mg/dL Estimated GFR > 60.0 (>60) mL/min BUN/Creatinine Ratio 23.2 H (6-22) Glucose 106 (80-110) mg/dL Calcium 9.2 (8.4-10.2) mg/dL Total Bilirubin 0.3 (0.2-1.3) mg/dL AST 26 (14-36) IU/L ALT 17 (<35) IU/L Alkaline Phosphatase 48 (38-126) U/L Total Protein 7.3 (6.3-8.2) g/dL Albumin 4.1 (3.5-5.0) g/dL Globulin 3.2 (1.7-4.1) g/dL Albumin/Globulin Ratio 1.3 (1.0-2.8) Lipase 97 (23-300) U/L Blood Type Antibody Screen 02/29/20 02/29/20 Range/Units 17:57 19:48 WBC (4.5-11.0) X10^3/uL RBC (4.0-5.2) X10^6/uL Hgb 14.3 (12.0-16.0) g/dL Hct 42.8 (36-46) % MCV (80-100) fL MCH (26-34) PG MCHC (30-36) % RDW (11.6-14.8) % Plt Count (150-400) X10^3/uL Neut % (Auto) (50-75) % Lymph % (Auto) (25-40) % [place] % (Auto) (3-14) % Eos % (Auto) (2-4) % Baso % (Auto) (0-2) % Neut # (Auto) (8614-2080) /uL Lymph # (Auto) (8361-0345) /uL [place] # (Auto) (0-900) /uL Eos # (Auto) (0-450) /uL Baso # (Auto) (0-100) /uL PT (10.1-12.7) SECONDS INR (0.9-1.3) APTT (26.4-36.2) SECONDS Sodium (137-145) mmol/L Potassium (3.4-5.1) mmol/L Chloride (98-107) mmol/L Carbon Dioxide (22-32) mmol/L BUN (7-17) mg/dL Creatinine (0.52-1.04) mg/dL Estimated GFR (>60) mL/min BUN/Creatinine Ratio (6-22) Glucose (80-110) mg/dL Calcium (8.4-10.2) mg/dL Total Bilirubin (0.2-1.3) mg/dL AST (14-36) IU/L ALT (<35) IU/L Alkaline Phosphatase (38-126) U/L Total Protein (6.3-8.2) g/dL Albumin (3.5-5.0) g/dL Globulin (1.7-4.1) g/dL Albumin/Globulin Ratio (1.0-2.8) Lipase (23-300) U/L Blood Type A Positive Antibody Screen Negative Discharge Plan Departure Patient Disposition: Home Clinical Impression: Painless rectal bleeding, Anticoagulated Discharge Date/Time: 02/29/20 20:07 Instructions: Inflammatory Bowel Disease, Gastrointestinal Bleeding Activity Restrictions/Additional Instructions: You have been diagnosed with [painless rectal bleed. You are currently using Eliquis and Plavix and has history of Crohn's disease. Blood count is within normal. There is no increased WBC indicating infection. PT and PTT is slightly elevated of 13.8 and 44. There no increase in abdominal pain more than her usual. You deferred CT test at this time. Repeated H/H test which returned with no significant change ]. What to do: *Take your medications as directed. Please continue with your medications *Follow up with your primary care provider in 2-3 days, call for an appointment. Let them know you were seen in the ED and that we asked you to be seen in follow up for bleeding. *Return to ED if you have any new, worsening, or concerning symptoms, such as [increasing pain, fever, chest pain, breathing difficulty, unable to tolerate fluids, increasing bleeding or any acute concerns]. Prescriptions: No Action omeprazole 20 MG capsule,delayed release(DR/EC) 20 mg PO BID Qty: 180 RF: 3 furosemide 40 mg tablet See Rx Instructions PO QDAY PRN (Reason: edema) Qty: 30 RF: 3 atorvastatin 40 mg tablet 40 mg PO DAILY Qty: 90 RF: 3 lisinopril 5 mg tablet 5 mg PO DAILY Qty: 90 RF: 3 azithromycin [Zithromax Z-Wallace] 250 mg tablet See Rx Instructions PO .COMPLEX Qty: 6 RF: 0 benzonatate [Tessalon Perles] 100 mg capsule 100 mg PO BID PRN (Reason: cough) Qty: 30 RF: 0 metoprolol tartrate 25 mg tablet 25 mg PO BID Qty: 60 RF: 3 clopidogrel 75 mg tablet 75 mg PO DAILY Qty: 30 RF: 3 Eliquis 5 mg tablet 5 mg PO BID Qty: 60 RF: 3 venlafaxine 37.5 mg capsule,extended release 24hr 37.5 mg PO BEDTIME Qty: 90 RF: 1 alprazolam 0.25 mg tablet 0.25 mg PO Q8HP PRN (Reason: anxiety/agitation) Qty: 40 RF: 0 hydrocodone-acetaminophen [[place]] 7.5-325 mg tablet See Rx Instructions .ROUTE .COMPLEX MDD EXEMPT PRN (Reason: pain) Qty: 100 RF: 0 Referrals: Ozzie Sheriff MD [Primary Care Provider] - <Archie Moise DO - Last Filed: 03/01/20 01:00> [facility] ED Attending [facility] Attestation: I was immediately available in the department for consultation. This documentation has been reviewed and I agree with assessment and plan. Supervised by Archie Moise DO
[2020-02-29 20:01] LABS: Hematocrit 42.8 % (36-46); Hemoglobin 14.3 g/dL (12.0-16.0)
[2020-02-29 20:07] VITALS: BP 124/65; PULSE 62; RESP 20; O2SAT 94
== END 2020-02-29 20:07 | disposition home or self-care (01) ==
PROVIDERS: Emergency Medicine; Emergency Provider Nurse Practitioner Family; PCP Family Medicine; Referring Provider Family Medicine
DX: K62.5 Hemorrhage of anus and rectum (principal); Z79.01 Long term (current) use of anticoagulants
CPT/HCPCS: 36415; 80053; 83690; 85014; 85018; 85025; 85610; 85730; 86850; 86900; 86901; 99283; 99284

== ENCOUNTER → 2020-08-07 08:41 | Outpatient (CLI) | payer OTHER, MEDICAID, SELFPAY ==
[2020-08-08 07:46] LABS: COVID19 Sendout Not Detected (Not Detect)
== END ==
PROVIDERS: PCP Family Medicine; Visit Provider Physician Assistant
DX: Z11.59 Encounter for screening for other viral diseases (principal)
CPT/HCPCS: 87635

== ENCOUNTER → 2020-09-07 11:08 | Outpatient (CLI) | payer OTHER, MEDICAID, SELFPAY ==
--- NOTE | 2020-09-07 11:09 | DI.RAD.S_ITS ---
PROCEDURE: XR SHOULDER RT MIN 2V INDICATIONS: Injury to right shoulder TECHNIQUE: 3 views of the shoulder were acquired. COMPARISON: [facility], , SHOULDER MINIMUM 2 VIEW LEFT, 03/17/2011, 21:04. FINDINGS: Bones: No fracture. Severe AC joint degeneration. There is also glenohumeral degenerative joint disease. Soft tissues: No suspicious soft tissue calcifications. IMPRESSION: Right shoulder joint degeneration. If the patient's pain or other symptoms persist, consider further evaluation with MRI Dictated by: Miguel Ángel Montgomery M.D. on 09/07/2020 at 13:46 Approved by: Miguel Ángel Montgomery M.D. on 09/07/2020 at 14:03
== END ==
PROVIDERS: PCP Family Medicine; Referring Provider Family Medicine; Visit Provider Family Medicine
DX: S49.91XA Unspecified injury of right shoulder and upper arm, initial encounter (principal); M19.011 Primary osteoarthritis, right shoulder; W18.30XA Fall on same level, unspecified, initial encounter
CPT/HCPCS: 73030

== ENCOUNTER 2021-03-22 16:56 | Emergency (ER) | payer OTHER, MEDICAID, SELFPAY ==
[2021-03-22 17:06] VITALS: BP 133/78; PULSE 93; RESP 12; TEMP 37.3; O2SAT 96; BMI 48.4
--- NOTE | 2021-03-22 18:28 | ED.EYEPROB ---
HPI - Eye Problem General Chief complaint: Eye Problems Stated complaint: LEFT EYE PRESSURE BEHIND IT Time Seen by Provider: 03/22/21 18:16 Source: patient Mode of arrival: Ambulatory Limitations: no limitations History of Present Illness HPI Narrative: 60-year-old female daily smoker presents with a chief complaint of some irritation to her left eye and drainage which she has been wiping away frequently over the past day. She denies any injury, fever or chills. She has had increased upper respiratory allergic type complaints including runny nose, sneezing and cough. She denies any change in her vision, blurring, flashers or other. She does not wear corrective lenses or contacts. Related Data Previous Rx's Medication Instructions Recorded disabled parking permit #1 each 05/22/20 omeprazole 40 mg capsule,delayed 40 mg PO BID #180 cap 05/22/20 release apixaban 5 mg tablet 5 mg PO BID #60 tab 08/13/20 atorvastatin 40 mg tablet 40 mg PO DAILY #90 tab 11/09/20 furosemide 40 mg tablet See Rx Instructions PO QDAY PRN 11/09/20 #90 tab metoprolol tartrate 25 mg tablet 25 mg PO BID #180 tab 11/09/20 oxybutynin chloride 5 mg 5 mg PO BEDTIME #90 tab 11/09/20 tablet,extended release 24 hr clopidogrel 75 mg tablet 75 mg PO DAILY #90 tab 12/14/20 lisinopril 5 mg tablet 5 mg PO DAILY #90 tab 12/14/20 venlafaxine 37.5 mg 37.5 mg PO BEDTIME #90 cap 12/14/20 capsule,extended release 24 hr alprazolam 0.25 mg tablet 0.25 mg PO BID PRN #60 tab 02/27/21 hydrocodone 7.5 mg-acetaminophen See Rx Instructions .ROUTE 03/14/21 325 mg tablet .COMPLEX PRN #100 tab MDD EXEMPT sulfacetamide sodium 1 drp EYE-LEFT Q2H #15 ml 03/22/21 Allergies Allergy/AdvReac Type Severity Reaction Status Date / Time lidocaine [LIDOCAINE] Allergy Unknown Verified 03/22/21 17:10 Penicillins [PENICILLINS] Allergy Unknown Verified 03/22/21 17:10 prednisone [PREDNISONE] Allergy Unknown Verified 03/22/21 17:10 shellfish derived Allergy Unknown Verified 03/22/21 17:10 [SHELLFISH DERIVED] venom-honey bee Allergy Unknown Verified 03/22/21 17:10 [BEE VENOM (HONEY BEE)] procaine [PROCAINE] AdvReac Unknown Verified 03/22/21 17:10 Review of Systems Constitutional Constitutional: Denies chills, Denies fatigue, Denies fever(s), Denies frequent falls, Denies lethargy and Denies weakness Eyes Eyes: Denies change in vision, Denies eye discharge, Reports irritation and Denies loss of vision Comments: drainage ENT Ears, Nose, Mouth, and Throat: Denies change in voice, Denies dizziness, Denies neck pain, Denies sore throat and Denies throat swelling Cardiovascular Cardiovascular: Denies chest pain, Denies irregular heart rhythm, Denies lightheadedness, Denies palpitations, Denies dyspnea, Denies dyspnea on exertion and Denies orthopnea Respiratory Respiratory: Denies cough, Denies dyspnea, Denies dyspnea on exertion and Denies wheezing Gastrointestinal Gastrointestinal: Denies abdominal pain, Denies change in bowel habits, Denies diarrhea, Denies nausea and Denies vomiting Musculoskeletal Musculoskeletal: Denies neck pain and Denies numbness Integumentary/Breasts Skin/Breast: Denies pruritus, Denies erythema, Denies rash and Denies wounds Neurologic Neurologic: Denies behavioral changes, Denies confusion, Denies dizziness, Denies frequent falls, Denies loss of vision, Denies numbness and Denies weakness Psychiatric Psychiatric: Denies anxiety, Denies behavioral changes, Denies confusion, Denies depression, Denies homicidal ideation and Denies suicidal ideation Endocrine Endocrine: Denies fatigue, Denies flushing and Denies palpitations Hematologic/Lymphatic Hematologic/Lymphatic: Denies easy bruising Allergic/Immunologic Allergic/Immunologic: Denies urticaria, Denies throat swelling and Denies wheezing Patient History Medical History Anxiety Chronic back pain Chronic left hip pain Chronic low back pain Coronary artery disease Crohn's disease Depression Esophageal reflux Gout Hearing loss History of urinary incontinence Kidney stones Migraines Osteoarthritis Rheumatoid arthritis Shoulder pain Sleep apnea Urinary incontinence Vertigo Surgical History History of hysterectomy (~2000) Family History Brother Age: 55 Hypertension High cholesterol Father Diabetes mellitus Heart disease Hypertension Grandmother Heart disease Mother Age: 79 Heart disease Grandfather Stroke Grandfather Stroke Grandmother Cancer Sister Liver failure Social History household members: family Smoking Status: Current every day smoker Tobacco: How many years used: 40 quit status: not considering quitting alcohol intake: current (Rarely) substance use type: does not use Smoking Status: Current every day smoker tobacco type: cigarettes alcohol intake frequency: holidays/special occasions only Substance Use Type: does not use Exam Narrative Exam Narrative: GEN: AOx3 and in mild distress EYES: Pupils are equal, round, and reactive to light and accommodation. Extraoccular muscles are intact bilaterally. There is no subconjunctival hemorrhage , but left eye does demonstrate some purulence drainage. Visual acuity unchanged, upper lid everted and no foreign body noted CHEST: Lungs are clear to auscultation bilaterally and free of wheezes, rales, or rhonchi. Heart rate is regular rhythm, there are no murmurs, clicks, rubs, or gallops. There is no chest wall tenderness. ABD: Abdomen is soft and nontender. There is no guarding or rebound. Bowel sounds are normal in all 4 quadrants. There is no mass or organomegaly. EXT: Full painless ROM of all extremities with no loss of sensation or strength. SKIN: Warm, pink, and dry. No erythema or rash Initial Vital Signs Initial Vital Signs: Vital Signs Temperature 99.1 F 03/22/21 17:06 Pulse Rate 93 H 03/22/21 17:06 Respiratory Rate 12 03/22/21 17:06 Blood Pressure 133/78 03/22/21 17:06 Pulse Oximetry 96 03/22/21 17:06 Course Course Course Narrative: Patient has significant allergy to both the esters an MIs and proparacaine cannot be used, therefore I did not do fluorescein or check her pressure. Acute angle closure glaucoma considered but patient not having eye pain, no blurred vision, pupils are equal and reactive, there is no watering or change in acuity. Infection considered given the drainage, orbital cellulitis considered but no pain on use of extraocular Orders Ordered: Discontinued Medications Fluorescein Sodium (Fluorescein 1 Mg Strip) 1 mg EYE-LEFT NOW ONE Stop: 03/22/21 18:37 Vital Signs Vital signs: Vital Signs - 8 hr 03/22/21 17:06 03/22/21 18:54 Temperature 99.1 F Pulse Rate 93 H 78 Respiratory Rate 12 19 Blood Pressure 133/78 131/88 Pulse Oximetry 96 97 Discharge Plan Departure Patient Disposition: Home Clinical Impression: Conjunctivitis Qualifiers: Conjunctivitis type: unspecified Laterality: left Qualified Code(s): H10.9 - Unspecified conjunctivitis Instructions: DI for Conjunctivitis Activity Restrictions/Additional Instructions: *You have been diagnosed with [left eye conjunctivitis, possible minor abrasion] *What to do: *Please continue to take your regular medications as directed.Also, please consider using a different over the counter antihistamine thatn what you've been using to see if it might help a bit more. [x ] New medication prescriptions sent to your pharmacy: [[facility] in [place]] [ ] New medication written as a paper prescription [ ] No new medications given *Please follow up with your primary care provider in 2-3 days, call for an appointment. Let them know you were seen in the Emergency Department and that we ask that you be seen in follow up. We will electronically transmit a record of today's note if your PCP is in our system *If you do not have a primary care provider please contact the [facility] Resource line at [phone]. They will ask some questions about your medical history and help get you set up with a doctor in the community. *Return to Emergency Department if you should have any new, worsening or concerning symptoms, such as [fever greater than 101 F, shaking chills, worsening pain, persistent vomiting or other bothersome symptoms] Prescriptions: New sulfacetamide sodium 10 % drops 1 drp EYE-LEFT Q2H Qty: 15 RF: 0 No Action Eliquis 5 mg tablet 5 mg PO BID Qty: 60 RF: 3 atorvastatin 40 mg tablet 40 mg PO DAILY Qty: 90 RF: 3 metoprolol tartrate 25 mg tablet 25 mg PO BID Qty: 180 RF: 3 oxybutynin chloride [Ditropan XL] 5 mg tablet extended release 24hr 5 mg PO BEDTIME Qty: 90 RF: 2 furosemide 40 mg tablet See Rx Instructions PO QDAY PRN (Reason: edema) Qty: 90 RF: 3 clopidogrel 75 mg tablet 75 mg PO DAILY Qty: 90 RF: 3 lisinopril 5 mg tablet 5 mg PO DAILY Qty: 90 RF: 2 venlafaxine 37.5 mg capsule,extended release 24hr 37.5 mg PO BEDTIME Qty: 90 RF: 1 alprazolam 0.25 mg tablet 0.25 mg PO BID PRN (Reason: anxiety/agitation) Qty: 60 RF: 1 hydrocodone-acetaminophen 7.5-325 mg tablet See Rx Instructions .ROUTE .COMPLEX MDD EXEMPT PRN (Reason: pain) Qty: 100 RF: 0 omeprazole 40 mg capsule,delayed release(DR/EC) 40 mg PO BID Qty: 180 RF: 3 (DME) disabled parking permit See Rx Instructions .ROUTE .MEDSUPPLY Qty: 1 RF: 0 Referrals: Dannie River DO [Primary Care Provider] -
[2021-03-22 18:54] VITALS: BP 131/88; PULSE 78; RESP 19; O2SAT 97
== END 2021-03-22 18:54 | disposition home or self-care (01) ==
PROVIDERS: Emergency Provider Emergency Medicine; PCP Family Medicine
DX: H10.9 Unspecified conjunctivitis (principal)
CPT/HCPCS: 99281

== ENCOUNTER 2021-05-19 13:08 | Emergency (ER) | payer OTHER, MEDICAID, SELFPAY ==
[2021-05-19 13:31] VITALS: BP 162/96; PULSE 77; RESP 18; TEMP 36.3; O2SAT 97; BMI 52.9
--- NOTE | 2021-05-19 13:58 | ED_ITS ---
HPI - General Adult General Chief complaint: Dental/Oral Stated complaint: BROKEN TOOTH, PAIN/SWELLING Time Seen by Provider: 05/19/21 13:53 History of Present Illness HPI narrative: Patient has known poor dentition. The other day she was eating a burrito and felt a portion of her tooth break off. Since that time she has had swelling on the left side of her face. She is attempted to make contact with a dentist but has been unable to up to this point. Arrives seeking antibiotics. Related Data Previous Rx's Medication Instructions Recorded disabled parking permit #1 each 05/22/20 omeprazole 40 mg capsule,delayed 40 mg PO BID #180 cap 05/22/20 release apixaban 5 mg tablet (Eliquis) 5 mg PO BID #60 tab 08/13/20 atorvastatin 40 mg tablet 40 mg PO DAILY #90 tab 11/09/20 furosemide 40 mg tablet See Rx Instructions PO QDAY PRN 11/09/20 #90 tab metoprolol tartrate 25 mg tablet 25 mg PO BID #180 tab 11/09/20 oxybutynin chloride 5 mg 5 mg PO BEDTIME #90 tab 11/09/20 tablet,extended release 24 hr (Ditropan XL) clopidogrel 75 mg tablet 75 mg PO DAILY #90 tab 12/14/20 lisinopril 5 mg tablet 5 mg PO DAILY #90 tab 12/14/20 venlafaxine 37.5 mg 37.5 mg PO BEDTIME #90 cap 12/14/20 capsule,extended release 24 hr sulfacetamide sodium 10 % eye drops 1 drp EYE-LEFT Q2H #15 ml 03/22/21 hydrocodone 7.5 mg-acetaminophen See Rx Instructions .ROUTE 04/08/21 325 mg tablet .COMPLEX PRN #100 tab MDD EXEMPT alprazolam 0.25 mg tablet 0.25 mg PO BID PRN #30 tab 05/02/21 clindamycin HCl 300 mg capsule 300 mg PO Q6H 7 Days #28 cap 05/19/21 Allergies Allergy/AdvReac Type Severity Reaction Status Date / Time lidocaine [LIDOCAINE] Allergy Unknown Verified 05/19/21 13:33 Penicillins [PENICILLINS] Allergy Unknown Verified 05/19/21 13:33 prednisone [PREDNISONE] Allergy Unknown Verified 05/19/21 13:33 shellfish derived Allergy Unknown Verified 05/19/21 13:33 [SHELLFISH DERIVED] venom-honey bee Allergy Unknown Verified 05/19/21 13:33 [BEE VENOM (HONEY BEE)] procaine [PROCAINE] AdvReac Unknown Verified 05/19/21 13:33 Review of Systems Constitutional Constitutional: Denies fever(s) ENT Comments: Broken tooth left lower jaw, swelling left lower jaw, no problems swallowing. No problems breathing. Your pain. Cardiovascular Cardiovascular: Reports system reviewed and no additional complaints, except as documented Respiratory Respiratory: Reports system reviewed and no additional complaints, except as documented Gastrointestinal Gastrointestinal: Reports system reviewed and no additional complaints, except as documented Musculoskeletal Comments: No jaw pain Integumentary/Breasts Skin/Breast: Reports system reviewed and no additional complaints, except as documented Neurologic Neurologic: Reports system reviewed and no additional complaints, except as documented Hematologic/Lymphatic On Anticoagulants: Yes Patient History Medical History Anxiety Chronic back pain Chronic left hip pain Chronic low back pain Coronary artery disease Crohn's disease Depression Esophageal reflux Gout Hearing loss History of urinary incontinence Kidney stones Migraines Osteoarthritis Rheumatoid arthritis Shoulder pain Sleep apnea Urinary incontinence Vertigo Surgical History History of hysterectomy (~2000) Family History Brother Age: 56 Hypertension High cholesterol Father Diabetes mellitus Heart disease Hypertension Grandmother Heart disease Mother Age: 80 Heart disease Grandfather Stroke Grandfather Stroke Grandmother Cancer Sister Liver failure Social History household members: family Smoking Status: Current every day smoker Tobacco: How many years used: 40 quit status: not considering quitting alcohol intake: current (Rarely) substance use type: does not use Smoking Status: Current every day smoker tobacco type: cigarettes alcohol intake frequency: holidays/special occasions only Substance Use Type: does not use Exam Initial Vital Signs Initial Vital Signs: Vital Signs Temperature 97.3 F L 05/19/21 13:31 Pulse Rate 77 05/19/21 13:31 Respiratory Rate 18 05/19/21 13:31 Blood Pressure 162/96 H 05/19/21 13:31 Pulse Oximetry 97 05/19/21 13:31 Const General: cooperative HENMT Head: normal to inspection and normocephalic Teeth and gingiva: poor dentition Eyes General: appearance normal, both eyes and all related structures Neck Lymphatic: No lymphadenopathy Resp Effort & Inspection: normal respiratory effort Skin General: no rashes or lesions noted Neuro General: patient alert, patient awake, patient oriented x3 and moves all extremities Extrem General: normal to inspection Psych Appearance: grossly normal Course Vital Signs Vital signs: Vital Signs - 8 hr /18/ 13:31 Temperature 97.3 F L Pulse Rate 77 Respiratory Rate 18 Blood Pressure 162/96 H Pulse Oximetry 97 Medical Decision Making MDM Narrative Medical decision making narrative: Patient has poor dentition is with multiple broken teeth and obvious caries. She does have swelling along her left mandibular region no defined abscess seen on exam the be amendable to drainage. Will start the patient on antibiotics. She was given return precautions and follow-up instructions. She expressed understanding agreement. Discharge Plan Departure Patient Disposition: Home Clinical Impression: Dental abscess Instructions: Tooth Abscess Activity Restrictions/Additional Instructions: A prescription for antibiotics was sent to [facility]. Please start taking it as directed. It is important that you may contact with a dentist as you are probably going to need to see them for definitive treatment. You can take Tylenol for any discomfort. Return to the emergency department for any new or worsening symptoms Prescriptions: New clindamycin HCl 300 mg capsule 300 mg PO Q6H 7 Days Qty: 28 RF: 0 No Action Eliquis 5 mg tablet 5 mg PO BID Qty: 60 RF: 3 atorvastatin 40 mg tablet 40 mg PO DAILY Qty: 90 RF: 3 metoprolol tartrate 25 mg tablet 25 mg PO BID Qty: 180 RF: 3 oxybutynin chloride [Ditropan XL] 5 mg tablet extended release 24hr 5 mg PO BEDTIME Qty: 90 RF: 2 furosemide 40 mg tablet See Rx Instructions PO QDAY PRN (Reason: edema) Qty: 90 RF: 3 clopidogrel 75 mg tablet 75 mg PO DAILY Qty: 90 RF: 3 lisinopril 5 mg tablet 5 mg PO DAILY Qty: 90 RF: 2 venlafaxine 37.5 mg capsule,extended release 24hr 37.5 mg PO BEDTIME Qty: 90 RF: 1 hydrocodone-acetaminophen 7.5-325 mg tablet See Rx Instructions .ROUTE .COMPLEX MDD EXEMPT PRN (Reason: pain) Qty: 100 RF: 0 alprazolam 0.25 mg tablet 0.25 mg PO BID PRN (Reason: anxiety/agitation) Qty: 30 RF: 0 omeprazole 40 mg capsule,delayed release(DR/EC) 40 mg PO BID Qty: 180 RF: 3 (DME) disabled parking permit See Rx Instructions .ROUTE .MEDSUPPLY Qty: 1 RF: 0 sulfacetamide sodium 10 % drops 1 drp EYE-LEFT Q2H Qty: 15 RF: 0 Referrals: Dannie River, [Primary Care Provider] -
== END 2021-05-19 14:05 | disposition home or self-care (01) ==
PROVIDERS: Emergency Provider Emergency Medicine; PCP Family Medicine
DX: K04.7 Periapical abscess without sinus (principal)
CPT/HCPCS: 99281

== ENCOUNTER → 2021-06-10 16:00 | Outpatient (CLI) | payer OTHER, MEDICAID, SELFPAY ==
[2021-06-10 17:41] LABS: Appearance Urine UA SL CLOUDY; Bilirubin Urine UA NEGATIVE (NEGATIVE); Color Urine UA YELLOW; Glucose Urine UA NEGATIVE (Negative); Ketones Urine UA NEGATIVE (NEGATIVE); Leukocyte Esterase Urine UA TRACE (NEGATIVE); Nitrite Urine UA NEGATIVE (Negative); Occult Blood Urine UA 2+ (Negative); Protein Urine UA 1+ (Negative); Specific Gravity Urine UA 1.025 (1.000-1.035); Urobilinogen Urine UA 0.2 E.U./dL (0.2)
[2021-06-10 17:55] LABS: UR Morphine/Opiate cutoff 300 Negative (Negative); Ur Creatinine Normal (Normal); Ur Specific Gravity Normal (Normal); Urine Amphetamines Negative (Negative); Urine Barbiturates Negative (Negative); Urine Benzodiazepines Negative (Negative); Urine Cocaine Negative (Negative); Urine MDMA Negative (Negative); Urine Methadone Negative (Negative); Urine Methamphetamines Negative (Negative); Urine Oxycodone Negative (Negative); Urine Phencyclidine Negative (Negative); Urine Tetrahydrocannabinol Negative (Negative); Urine Tricyclic Antidepressant Negative (Negative); Urine pH Normal (Normal)
[2021-06-10 17:58] LABS: pH Urine UA 5.5 (4.5-8.0)
[2021-06-10 18:08] LABS: Amorphous Sediment Urine 1+; Bacteria Urine Moderate (10-30); Mucus Urine 1+ (Negative); RBC Urine 1-5/HPF (0-5/HPF); Squamous Epithelial Cell Urine 5-10 /HPF (0-5/HPF); WBC Urine 10-30/HPF (0-5/HPF)
[2021-06-10 18:09] LABS: Culture Indicated Urine Specimen Cultured
== END ==
PROVIDERS: PCP Family Medicine; Referring Provider Family Medicine; Visit Provider Family Medicine
DX: N20.0 Calculus of kidney (principal); G89.29 Other chronic pain; M25.552 Pain in left hip
CPT/HCPCS: 80305; 81001; 87077; 87086; 87186

== ENCOUNTER 2021-10-19 13:47 | Emergency (ER) | payer OTHER, MEDICAID, SELFPAY ==
[2021-10-19 13:52] VITALS: PULSE 71; O2SAT 96
--- NOTE | 2021-10-19 13:52 | DI.RAD.S_ITS ---
PROCEDURE: XR ELBOW LT MIN 3V INDICATIONS: fall with severe elbow pain TECHNIQUE: 3 views of the elbow were acquired. COMPARISON: None. FINDINGS: Bones: No fractures or dislocations. No suspicious bony lesions. Soft tissues: No elbow joint effusion. No suspicious soft tissue calcifications. IMPRESSION: Normal left elbow Dictated by: Zac Garcia M.D. on 10/19/2021 at 13:54 Approved by: Zac Garcia M.D. on 10/19/2021 at 13:54
--- NOTE | 2021-10-19 13:52 | DI.RAD.S_ITS ---
PROCEDURE: XR WRIST LT MIN 3V INDICATIONS: fall withs evere wrist pain TECHNIQUE: 4 views of the wrist were acquired. COMPARISON: None. FINDINGS: Bones: No fractures or dislocations. No suspicious bony lesions. Mild degenerative changes of the 1st carpometacarpal joint. Scaphoid view: Normal Soft tissues: No suspicious soft tissue calcifications. IMPRESSION: No acute abnormality of the left wrist. Dictated by: Zac Garcia M.D. on 10/19/2021 at 13:50 Approved by: Zac Garcia M.D. on 10/19/2021 at 13:52
--- NOTE | 2021-10-19 13:52 | DI.RAD.S_ITS ---
PROCEDURE: XR SHOULDER LT MIN 2V INDICATIONS: fall with severe shoulder pain TECHNIQUE: 3 views of the shoulder were acquired. COMPARISON: [facility], CR, XR SHOULDER RT MIN 2V, 09/07/2020, 10:06. FINDINGS: Bones: No fractures or dislocations. No suspicious bony lesions. Visualized ribs appear intact. Moderate degenerative changes of the left acromioclavicular joint. Soft tissues: No suspicious soft tissue calcifications. IMPRESSION: 1. No acute abnormality. 2. Moderate degenerative changes of the left acromioclavicular joint. Dictated by: Zac Garcia M.D. on 10/19/2021 at 13:52 Approved by: Zac Garcia M.D. on 10/19/2021 at 13:53
[2021-10-19 13:53] VITALS: BP 159/92
--- NOTE | 2021-10-19 13:54 | ED_ITS ---
HPI - Extremity Injury (Upper) General Chief Complaint: Fall Stated Complaint: Fell 3 days ago- left arm pain Time Seen by Provider: 10/19/21 13:50 History of Present Illness HPI narrative: 61-year-old female daily smoker with extensive medical history including hypertension, GERD, chronic back and hip pain, TIA, coronary artery disease on anticoagulation presents with a chief complaint of injuries suffered after a mechanical, ground level fall 3 days ago. She states that she was attempting to get off the couch and her bad hip gave her twinge causing her fall onto her left arm. She denies any head neck or back pain. She had no loss of consciousness, nausea or vomiting. She denies any focal neurologic findings such as numbness, tingling or weakness. She landed on her left arm and has pain in her shoulder, elbow and wrist. This pain is worsened with range of motion and improves with rest. She is otherwise well and free of complaint. She denies any dizziness, weakness or lightheadedness. She has had no chest pain or shortness of breath Related Data Previous Rx's Medication Instructions Recorded disabled parking permit #1 each 05/22/20 apixaban 5 mg tablet (Eliquis) 5 mg PO BID #60 tab 08/13/20 atorvastatin 40 mg tablet 40 mg PO DAILY #90 tab 11/09/20 furosemide 40 mg tablet See Rx Instructions PO QDAY PRN 11/09/20 #90 tab metoprolol tartrate 25 mg tablet 25 mg PO BID #180 tab 11/09/20 lisinopril 5 mg tablet 5 mg PO DAILY #90 tab 12/14/20 venlafaxine 37.5 mg 37.5 mg PO BEDTIME #90 cap 12/14/20 capsule,extended release 24 hr sulfacetamide sodium 10 % eye drops 1 drp EYE-LEFT Q2H #15 ml 03/22/21 oxybutynin chloride 10 mg 5 mg PO BEDTIME #90 tab 06/05/21 tablet,extended release 24 hr sulfamethoxazole 800 1 tab PO BID #14 tab 06/11/21 mg-trimethoprim 160 mg tablet (Bactrim DS) omeprazole 40 mg capsule,delayed 40 mg PO BID #180 cap 07/15/21 release alprazolam 0.25 mg tablet 0.25 mg PO BID PRN #30 tab 09/16/21 hydrocodone 5 mg-acetaminophen 325 1 tab PO TID PRN #90 tab 10/18/21 mg tablet cyclobenzaprine 10 mg tablet 10 mg PO TID PRN #14 tab 10/19/21 Allergies Allergy/AdvReac Type Severity Reaction Status Date / Time lidocaine [LIDOCAINE] Allergy Unknown Verified 10/19/21 14:37 Penicillins [PENICILLINS] Allergy Unknown Verified 10/19/21 14:37 prednisone [PREDNISONE] Allergy Unknown Verified 10/19/21 14:37 shellfish derived Allergy Unknown Verified 10/19/21 14:37 [SHELLFISH DERIVED] venom-honey bee Allergy Unknown Verified 10/19/21 14:37 [BEE VENOM (HONEY BEE)] procaine [PROCAINE] AdvReac Unknown Verified 10/19/21 14:37 Review of Systems Review of Systems Narrative: GENERAL: Denies chills, fatigue, malaise, fever, sweats. HEENT: Denies sinus pain, ear pain, sore throat, difficulty swallowing, dizziness. RESPIRATORY: Denies dyspnea, cough, wheezing, hemoptysis, sputum. CARDIOVASCULAR: Denies chest pain, palpitations, orthopnea, edema, GASTROINTESTINAL: Denies nausea, vomiting, abdominal pain, diarrhea, constipation, melena. : Denies dysuria, frequency, incontinence, hematuria, urinary retention. MUSCULOSKELETAL: See HPI SKIN: Denies rash, skin lesions, or other NEUROLOGIC: Denies weakness, headache, numbness, change in speech, confusion, seizures, incoordination. PSYCHIATRIC: No concerning psychosocial issues. 12 point review of systems is negative except for those stated above Patient History Medical History Anxiety Chronic back pain Chronic left hip pain Chronic low back pain Coronary artery disease Crohn's disease Depression Esophageal reflux GERD (gastroesophageal reflux disease) Gout Hearing loss History of urinary incontinence Hypertension Kidney stones Migraines Nephrolithiasis Osteoarthritis Rheumatoid arthritis Shoulder pain Sleep apnea Urinary incontinence Vertigo Surgical History History of hysterectomy (~2000) Family History Brother Age: 56 Hypertension High cholesterol Father Diabetes mellitus Heart disease Hypertension Grandmother Heart disease Mother Age: 80 Heart disease Grandfather Stroke Grandfather Stroke Grandmother Cancer Sister Liver failure Social History household members: family Smoking Status: Current every day smoker Tobacco: How many years used: 40 quit status: not considering quitting alcohol intake: current (Rarely) substance use type: does not use Smoking Status: Current every day smoker tobacco type: cigarettes alcohol intake frequency: holidays/special occasions only Substance Use Type: does not use Exam Narrative Exam Narrative: GEN: AOx3 and in mild distress, splinting her left arm. EYES: Pupils are equal, round, and reactive to light and accommodation. Extraoccular muscles are intact bilaterally. There is no subconjunctival hemorrhage or exudate. CHEST: Lungs are clear to auscultation bilaterally and free of wheezes, rales, or rhonchi. Heart rate is regular rhythm, there are no murmurs, clicks, rubs, or gallops. There is no chest wall tenderness. ABD: Abdomen is soft and nontender. There is no guarding or rebound. Bowel sounds are normal in all 4 quadrants. There is no mass or organomegaly. EXT: Decreased range of motion at left shoulder and elbow secondary to pain. No obvious deformity. Closed, isolated and neurovascularly intact. Pain on palpation at shoulder, elbow and wrist. Sensation intact, cap refill less than 2 seconds, radial pulse 2 +and bounding. SKIN: Warm, pink, and dry. No erythema or rash Initial Vital Signs Initial Vital Signs: Vital Signs Pulse Rate 71 10/19/21 13:52 Pulse Oximetry 96 10/19/21 13:52 Procedures Orthopedic Splinting/Casting Injury #1: Side: left Upper Extremity Injury Location: shoulder, elbow and wrist Upper Extremity Immobilizer: sling/shoulder immobilizer Post splinting neuro exam: intact Post splinting vascular exam: intact Placed by: Nursing Course Orders Ordered: ED Orders 10/19/21 13:52 XR elbow LT min 3V Stat XR shoulder LT min 2V Stat XR wrist LT min 3V Stat Vital Signs Vital signs: Vital Signs - 8 hr 10/19/21 13:52 10/19/21 13:53 10/19/21 13:55 Temperature 99.0 F Pulse Rate 71 75 Respiratory Rate 18 Blood Pressure 159/92 H 159/92 H Pulse Oximetry 96 96 MDM - Extremity Injury (Upper) Imaging Data Extremity x-ray #1: Radiologist's Impression: [address] [address] XRay Report Signed Patient: Sadie Kwok MR#: [id number] : 1960 Acct:[id number] Age/Sex: 61 / F Date of Service: 10/19/21 Loc: ED Accession Number: [id number] ?? Procedure: XR wrist LT min 3V Ordering Provider: Archie Moise D.O. PROCEDURE:? XR WRIST LT MIN 3V ? INDICATIONS: fall withs evere wrist pain ? TECHNIQUE:? 4 views of the wrist were acquired.? ? COMPARISON:? None. ? FINDINGS:? ? Bones:? No fractures or dislocations.? No suspicious bony lesions.? Mild degenerative changes of the 1st carpometacarpal joint.? ? Scaphoid view:? Normal ? Soft tissues:? No suspicious soft tissue calcifications.? ? IMPRESSION:? No acute abnormality of the left wrist. ? ? Dictated by: Zac Garcia M.D. on 10/19/2021 at 13:50 ? ? Approved by: Zac Garcia M.D. on 10/19/2021 at 13:52 ? Extremity x-ray #2: Radiologist's Impression: [address] [address] XRay Report Signed Patient: Sadie Kwok MR#: [id number] : 1960 Acct:[id number] Age/Sex: 61 / F Date of Service: 10/19/21 Loc: ED Accession Number: [id number] ?? Procedure: XR shoulder LT min 2V Ordering Provider: Archie Moise D.O. PROCEDURE:? XR SHOULDER LT MIN 2V ? INDICATIONS:? fall with severe shoulder pain ? TECHNIQUE:? 3 views of the shoulder were acquired.? ? COMPARISON:? [facility], CR, XR SHOULDER RT MIN 2V, 09/07/2020, 10:06. ? FINDINGS:? ? Bones:? No fractures or dislocations.? No suspicious bony lesions.? Visualized ribs appear intact.? Moderate degenerative changes of the left acromioclavicular joint. ? Soft tissues:? No suspicious soft tissue calcifications.? ? IMPRESSION:? 1. No acute abnormality. 2. Moderate degenerative changes of the left acromioclavicular joint.? ? ? Dictated by: Zac Garcia M.D. on 10/19/2021 at 13:52 ? ? Approved by: Zac Garcia M.D. on 10/19/2021 at 13:53 ? Extremity x-ray #3: Radiologist's Impression: [address] [address] XRay Report Signed Patient: Sadie Kwok MR#: [id number] : 1960 Acct:[id number] Age/Sex: 61 / F Date of Service: 10/19/21 Loc: ED Accession Number: [id number] ?? Procedure: XR shoulder LT min 2V Ordering Provider: Archie Moise D.O. PROCEDURE:? XR SHOULDER LT MIN 2V ? INDICATIONS:? fall with severe shoulder pain ? TECHNIQUE:? 3 views of the shoulder were acquired.? ? COMPARISON:? [facility], CR, XR SHOULDER RT MIN 2V, 09/07/2020, 10:06. ? FINDINGS:? ? Bones:? No fractures or dislocations.? No suspicious bony lesions.? Visualized ribs appear intact.? Moderate degenerative changes of the left acromioclavicular joint. ? Soft tissues:? No suspicious soft tissue calcifications.? ? IMPRESSION:? 1. No acute abnormality. 2. Moderate degenerative changes of the left acromioclavicular joint.? ? ? Dictated by: Zac Garcia M.D. on 10/19/2021 at 13:52 ? ? Approved by: Zac Garcia M.D. on 10/19/2021 at 13:53 ? Discharge Plan Departure Patient Disposition: Home Clinical Impression: Sprain of left shoulder Instructions: How to Prevent Falls, DI for Shoulder Pain Activity Restrictions/Additional Instructions: *You have been diagnosed with [left shoulder sprain with muscle spasm. X-rays are very reassuring and there is no evidence of fracture or dislocation *What to do: *Please continue to take your regular medications as directed. [ x] New medication prescriptions sent to your pharmacy: [[facility] ] [ ] New medication written as a paper prescription [ ] No new medications given *Please follow up with your primary care provider in 2-3 days, call for an appointment. Let them know you were seen in the Emergency Department and that we ask that you be seen in follow up. We will electronically transmit a record of today's note if your PCP is in our system *If you do not have a primary care provider please contact the [facility] Resource line at [phone]. They will ask some questions about your medical history and help get you set up with a doctor in the community. *Return to Emergency Department if you should have any new, worsening or concerning symptoms, such as [numbness, tingling, weakness, worsening pain of your arm, or any other bothersome symptoms Prescriptions: New cyclobenzaprine 10 mg tablet 10 mg PO TID PRN (Reason: muscle spasm) Qty: 14 0RF No Action Eliquis 5 mg tablet 5 mg PO BID Qty: 60 3RF Rx Instructions: Take one tablet by mouth twice a day. atorvastatin 40 mg tablet 40 mg PO DAILY Qty: 90 3RF metoprolol tartrate 25 mg tablet 25 mg PO BID Qty: 180 3RF furosemide 40 mg tablet See Rx Instructions PO QDAY PRN (Reason: edema) Qty: 90 3RF Dose Instruction: Take 1/2 to 1 tab daily as needed for edema PO QDAY PRN; Take 1/2 to 1 tab daily as needed for edema Rx Instructions: Take 1/2 to 1 tab daily as needed for edema PO daily PRN; lisinopril 5 mg tablet 5 mg PO DAILY Qty: 90 2RF venlafaxine 37.5 mg capsule,extended release 24hr 37.5 mg PO BEDTIME Qty: 90 1RF sulfamethoxazole-trimethoprim [Bactrim DS] 800-160 mg tablet 1 tab PO BID Qty: 14 0RF omeprazole 40 mg capsule,delayed release(DR/EC) 40 mg PO BID Qty: 180 3RF alprazolam 0.25 mg tablet 0.25 mg PO BID PRN (Reason: anxiety/agitation) Qty: 30 2RF Rx Instructions: Take one tab by mouth every 8 hours as needed for anxiety. hydrocodone-acetaminophen 5-325 mg tablet 1 tab PO TID PRN (Reason: pain) Qty: 90 0RF Rx Instructions: Must last 30 days (DME) disabled parking permit See Rx Instructions .ROUTE .MEDSUPPLY Qty: 1 0RF Rx Instructions: As directed. patient qualifies for disabled parking as per attached form. oxybutynin chloride 10 mg tablet extended release 24hr 5 mg PO BEDTIME Qty: 90 1RF sulfacetamide sodium 10 % drops 1 drp EYE-LEFT Q2H Qty: 15 0RF Referrals: Dannie River, [Primary Care Provider] -
[2021-10-19 13:55] VITALS: BP 159/92; PULSE 75; RESP 18; TEMP 37.2; O2SAT 96; BMI 40.3
== END 2021-10-19 15:22 | disposition home or self-care (01) ==
PROVIDERS: Emergency Provider Emergency Medicine; PCP Family Medicine
DX: S43.402A Unspecified sprain of left shoulder joint, initial encounter (principal); F17.210 Nicotine dependence, cigarettes, uncomplicated; W18.30XA Fall on same level, unspecified, initial encounter; Y93.89 Activity, other specified
CPT/HCPCS: 73030; 73080; 73110; 99283

== ENCOUNTER 2022-02-28 10:30 | Outpatient (RCR) | payer OTHER, MEDICAID, SELFPAY ==
--- NOTE | 2022-02-20 12:45 | PT.OIE ---
Current Diagnoses Benign paroxysmal vertigo, right ear (02/20/22) Dizziness and giddiness (02/20/22) Past Medical History (Last Reviewed 11/13/21 @ 15:44 by Dannie River DO) Anxiety Chronic back pain Chronic left hip pain Chronic low back pain Cognitive impairment Coronary artery disease Crohn's disease Depression Esophageal reflux Family history of osteoporosis GERD (gastroesophageal reflux disease) Gout Hearing loss Hearing loss History of urinary incontinence Hypertension Intention tremor Kidney stones Migraines Nephrolithiasis Osteoarthritis Rheumatoid arthritis Shoulder pain Sleep apnea Urinary incontinence Vertigo Past Surgical History (Last Reviewed 11/13/21 @ 15:44 by Dannie River DO) History of hysterectomy (~2000) Visit Care Team Role Provider Type Dannie River DO Family Provider Physician Primary Care Provider Specialty: Family Practice Address: [address] [place] [address], [facility] Email: [email or web address] Cano MD Attending Provider Physician Referring Provider Specialty: Ear, Nose, Throat Address: [address] [place] [address], [facility] Email: [email or web address] Physical Therapy Initial Evaluation PT-OP-A Visit Information Start: 02/20/22 12:05 Freq: Status: Active Protocol: Document 02/20/22 10:30 DCW (Rec: 02/20/22 12:09 DCW [id number]) Out-Patient Physical Therapy Visit Information Visit Information Visit Type Initial Evaluation Visit Start Time 10:30 Visit Stop Time 11:20 Total Visit Minutes 50 Visit Number 1 Number of CHANGE OF ADDRESS CLERK Visits 0 Evaluation Information Evaluation Date 02/20/22 PT-OP-B Current Condition Start: 02/20/22 12:05 Freq: Status: Active Protocol: Document 02/20/22 10:30 DCW (Rec: 02/20/22 12:37 DCW [id number]) Current Condition History of Current Condition Onset Date ~2 year history Current Complaints Positional vertigo History of Current Condition Pt is a 61 year old female complaining of a two year history of vertigo. Pt is a difficult historian, notes she gets dizzy with positional changes, but also when I walk or blink in certain areas. Pt reports episodes last 2-15 minutes. Pt reports she has very poor right-sided hearing with worsening left hearing, with ringing and pressure in her right ear. Pt denies recent diplopia, dysarthria, discoordination, or decreased mentation/consciousness. Pt additionally has a smoking history of 40 pack/years. Pt has a long-standing migraine history, and notes that due to a recent onset of tremor, she has a CT scan scheduled soon. PT-OP-C Subjective Start: 02/20/22 12:05 Freq: Status: Active Protocol: Document 02/20/22 10:30 DCW (Rec: 02/20/22 12:37 DCW [id number]) OP-PT Subjective Patient Comments Patient Comments I have a hard time rolling over in bed, and when I tilt my head back to wash my hair. Patient Questionnaires Dizziness Handicap Inventory DHI Score 90% DHI Functional Impairment 80 to 99% Impaired (Score 80- 99) PT-OP-O Vestibular Start: 02/20/22 12:05 Freq: Status: Active Protocol: Document 02/20/22 10:30 DCW (Rec: 02/20/22 12:37 DCW [id number]) Vestibular Assessment Screening Tests Vestibular Artery Screen Negative Auditory Tests Sanchez Test Within normal limits Air Conduction Results Left Greater Visual Testing Smooth Pursuits Horizontal Difficult to determine Saccades Horizontal WNL, c/o wooziness Positional Testing Sidelying Test Positive Right,Negative Left, Upbeating,< 60 Seconds PT-OP-Q Treatments Start: 02/20/22 12:05 Freq: Status: Active Protocol: Document 02/20/22 10:30 DCW (Rec: 02/20/22 12:09 DCW [id number]) Canalithic Repositioning BPPV Treatment Héctor Affected Canal(s) R Posterior Reps x1 Comments Modified Héctor PT-OP-T Assessment and Plan Start: 02/20/22 12:05 Freq: Status: Active Protocol: Document 02/20/22 10:30 DCW (Rec: 02/20/22 12:45 DCW [id number]) Physical Therapy Assessment Rehab Potential Rehabilitation Potential Good Evaluation Complexity Number of Personal Factors/Comorbidities 3 or More Number of Body Systems Impaired 3 Clinical Presentation at Evaluation Unstable Impairments Impairments Balance,Functional Activities, Functional Mobility,Pain, Vestibular Goals Two Impairment Positive R side-lying test Short Term Goal (STG) Pt to demonstrate negative positional testing bilaterally STG Duration 03/22/22 One Impairment Pt complains of positional vertigo Short Term Goal (STG) Pt to report no vertigo during bed mobility STG Duration 03/22/22 Assessment Summary Assessment During right Side-lying test, pt complained of vertigo and demonstrated up-beating, torsional nystagmus lasting approximately 15 seconds, consistent with diagnosis of right-sided posterior canal BPPV, canalithiasis-type. Pt was treated with a right-sided modified Héctor maneuver. Pt complained of symptoms in the first and third position, which is normally indicative of a successful treatment. Due to pt complaints of other pain, including low back pain, scapular pain, and difficulty with bed mobility, pt's Héctor maneuver was not as clean as it could have been, which may affect effectiveness, and pt should undergo further positional testing at her next visit. Recent onset of tremor and inconclusive smooth pursuit could also be indicative of potential central issues, however pt already reportedly scheduled for brain CT. Physical Therapy Plan Frequency and Duration Frequency of Treatment 1x/Week Duration of Treatment One month Plan of Care Start Date 02/20/22 Plan of Care End Date 03/22/22 Therapeutic Interventions Therapeutic Interventions Balance Training,Canalithic Repositioning,Home Exercise Program,Neuromuscular Re- education,Patient/Caregiver Education,Self-Care/Home Management,Therapeutic Activities,Therapeutic Exercises,Vestibular Rehabilitation Next Visit Focus/Plan Next Note Type Treatment Note Next Visit Plan Positional testing, CRM
--- NOTE | 2022-02-20 12:46 | PT.OPPOC ---
Physical, Occupational & Speech Therapy At [facility] Current Diagnoses Benign paroxysmal vertigo, right ear (02/20/22) Dizziness and giddiness (02/20/22) Visit Care Team Role Provider Type Dannie River DO Family Provider Physician Primary Care Provider Specialty: Family Practice Address: [address] [place] [address], [id number] Email: [email or web address] [email or web address] Cano MD Attending Provider Physician Referring Provider Specialty: Ear, Nose, Throat Address: [address] [place] [address], [id number] Email: [email or web address] Plan Of Care PT-OP-T Assessment and Plan Start: 02/20/22 12:05 Freq: Status: Active Protocol: Document 02/20/22 10:30 DCW (Rec: 02/20/22 12:45 DCW [id number]) Physical Therapy Assessment Rehab Potential Rehabilitation Potential Good Evaluation Complexity Number of Personal Factors/Comorbidities 3 or More Number of Body Systems Impaired 3 Clinical Presentation at Evaluation Unstable Impairments Impairments Balance,Functional Activities, Functional Mobility,Pain, Vestibular Goals Two Impairment Positive R side-lying test Short Term Goal (STG) Pt to demonstrate negative positional testing bilaterally STG Duration 03/22/22 One Impairment Pt complains of positional vertigo Short Term Goal (STG) Pt to report no vertigo during bed mobility STG Duration 03/22/22 Assessment Summary Assessment During right Side-lying test, pt complained of vertigo and demonstrated up-beating, torsional nystagmus lasting approximately 15 seconds, consistent with diagnosis of right-sided posterior canal BPPV, canalithiasis-type. Pt was treated with a right-sided modified Héctor maneuver. Pt complained of symptoms in the first and third position, which is normally indicative of a successful treatment. Due to pt complaints of other pain, including low back pain, scapular pain, and difficulty with bed mobility, pt's Héctor maneuver was not as clean as it could have been, which may affect effectiveness, and pt should undergo further positional testing at her next visit. Recent onset of tremor and inconclusive smooth pursuit could also be indicative of potential central issues, however pt already reportedly scheduled for brain CT. Physical Therapy Plan Frequency and Duration Frequency of Treatment 1x/Week Duration of Treatment One month Plan of Care Start Date 02/20/22 Plan of Care End Date 03/22/22 Therapeutic Interventions Therapeutic Interventions Balance Training,Canalithic Repositioning,Home Exercise Program,Neuromuscular Re- education,Patient/Caregiver Education,Self-Care/Home Management,Therapeutic Activities,Therapeutic Exercises,Vestibular Rehabilitation Next Visit Focus/Plan Next Note Type Treatment Note Next Visit Plan Positional testing, CRM Plan of Care Dates Plan of Care Start Date 02/20/22 Plan of Care End Date 03/22/22 Electronically Signed by: Luis Enrique Mckeon, PT 02/20/22 3098 If you are in agreement with this Plan of Care, please return a signed and dated copy. I have reviewed this Plan of Care and certify that the skilled therapy services above are required to meet the patient?s needs. Physician Signature Date Printed Name and Credentials Clinical Instructor Signature Printed Name and Credentials
--- NOTE | 2022-02-28 11:02 | PT.OTN ---
Current Diagnoses Benign paroxysmal vertigo, right ear (02/28/22) Dizziness and giddiness (02/28/22) Physical Therapy Treatment Note PT-OP-A Visit Information Start: 02/20/22 12:05 Freq: Status: Active Protocol: Document 02/28/22 10:30 DCW (Rec: 02/28/22 11:02 DCW [id number]) Out-Patient Physical Therapy Visit Information Visit Information Visit Type Treatment Note Visit Start Time 10:30 Visit Stop Time 10:45 Total Visit Minutes 15 Visit Number 2 Number of [employer] Visits 0 Evaluation Information Evaluation Date 02/20/22 PT-OP-B Current Condition Start: 02/20/22 12:05 Freq: Status: Active Protocol: Document 02/20/22 10:30 DCW (Rec: 02/20/22 12:37 DCW [id number]) Current Condition History of Current Condition Onset Date ~2 year history Current Complaints Positional vertigo History of Current Condition Pt is a 61 year old female complaining of a two year history of vertigo. Pt is a difficult historian, notes she gets dizzy with positional changes, but also when I walk or blink in certain areas. Pt reports episodes last 2-15 minutes. Pt reports she has very poor right-sided hearing with worsening left hearing, with ringing and pressure in her right ear. Pt denies recent diplopia, dysarthria, discoordination, or decreased mentation/consciousness. Pt additionally has a smoking history of 40 pack/years. Pt has a long-standing migraine history, and notes that due to a recent onset of tremor, she has a CT scan scheduled soon. PT-OP-C Subjective Start: 02/20/22 12:05 Freq: Status: Active Protocol: Document 02/28/22 10:30 DCW (Rec: 02/28/22 11:02 DCW [id number]) OP-PT Subjective Patient Comments Patient Comments Dizziness about the same, getting her CT scan later today. PT-OP-O Vestibular Start: 02/20/22 12:05 Freq: Status: Active Protocol: Document 02/28/22 10:30 DCW (Rec: 02/28/22 11:02 DCW [id number]) Vestibular Assessment Positional Testing Sidelying Test Positive Right,Upbeating,< 60 Seconds PT-OP-Q Treatments Start: 02/20/22 12:05 Freq: Status: Active Protocol: Document 02/28/22 10:30 DCW (Rec: 02/28/22 11:02 DCW [id number]) Manual Therapy Treatment Other Other Manual Treatments Positional testing Canalithic Repositioning BPPV Treatment Héctor Affected Canal(s) R Posterior Reps x1 Comments Modified Héctor PT-OP-T Assessment and Plan Start: 02/20/22 12:05 Freq: Status: Active Protocol: Document 02/28/22 10:30 DCW (Rec: 02/28/22 11:02 DCW [id number]) Physical Therapy Assessment Impairments Impairments Balance,Functional Activities, Functional Mobility,Pain, Vestibular Goals Two Impairment Positive R side-lying test Short Term Goal (STG) Pt to demonstrate negative positional testing bilaterally STG Duration 03/22/22 One Impairment Pt complains of positional vertigo Short Term Goal (STG) Pt to report no vertigo during bed mobility STG Duration 03/22/22 Assessment Summary Assessment Pt once again displays positive R side-lying test, treated with R modified Héctor maneuver. Symptomatic in first and third positions. Pt was unwilling to perform any retesting, felt a little too nauseated after CRM. Again difficult to get pt in proper positioning due to limited mobility. Physical Therapy Plan Frequency and Duration Frequency of Treatment 1x/Week Duration of Treatment One month Plan of Care Start Date 02/20/22 Plan of Care End Date 03/22/22 Therapeutic Interventions Therapeutic Interventions Balance Training,Canalithic Repositioning,Home Exercise Program,Neuromuscular Re- education,Patient/Caregiver Education,Self-Care/Home Management,Therapeutic Activities,Therapeutic Exercises,Vestibular Rehabilitation Next Visit Focus/Plan Next Note Type Treatment Note Next Visit Plan Positional testing, CRM
--- NOTE | 2022-06-20 10:29 | PT.OPDS ---
Current Diagnoses Benign paroxysmal vertigo, right ear (02/28/22) Dizziness and giddiness (02/28/22) Visit Care Team Role Provider Type Dannie River DO Family Provider Physician Primary Care Provider Specialty: Family Practice Address: [address] [place] [address], [id number] Email: [email or web address] Cano MD Attending Provider Physician Referring Provider Specialty: Ear, Nose, Throat Address: [address] [place] [address], [facility] Email: [email or web address] Visit Number Visit Number 2 Discharge Summary PT-OP-B Current Condition Start: 02/20/22 12:05 Freq: Status: Active Protocol: Document 02/20/22 10:30 DCW (Rec: 02/20/22 12:37 DCW [id number]) Current Condition History of Current Condition Onset Date ~2 year history Current Complaints Positional vertigo History of Current Condition Pt is a 61 year old female complaining of a two year history of vertigo. Pt is a difficult historian, notes she gets dizzy with positional changes, but also when I walk or blink in certain areas. Pt reports episodes last 2-15 minutes. Pt reports she has very poor right-sided hearing with worsening left hearing, with ringing and pressure in her right ear. Pt denies recent diplopia, dysarthria, discoordination, or decreased mentation/consciousness. Pt additionally has a smoking history of 40 pack/years. Pt has a long-standing migraine history, and notes that due to a recent onset of tremor, she has a CT scan scheduled soon. PT-OP-C Subjective Start: 02/20/22 12:05 Freq: Status: Active Protocol: Document 02/28/22 10:30 DCW (Rec: 02/28/22 11:02 DCW [id number]) OP-PT Subjective Patient Comments Patient Comments Dizziness about the same, getting her CT scan later today. PT-OP-O Vestibular Start: 02/20/22 12:05 Freq: Status: Active Protocol: Document 02/28/22 10:30 DCW (Rec: 02/28/22 11:02 DC [id number]) Vestibular Assessment Positional Testing Sidelying Test Positive Right,Upbeating,< 60 Seconds PT-OP-T Assessment and Plan Start: 02/20/22 12:05 Freq: Status: Active Protocol: Document 06/20/22 10:29 DCW (Rec: 06/20/22 10:29 [facility] [id number]) Physical Therapy Assessment Assessment Summary Assessment Pt was last seen nearly four months ago, has not scheduled any further follow-up visits. Pt will be discharged at this time, will require a new referral in order to return to skilled PT Physical Therapy Plan Discharge Physical Therapy Discharge Reasons No Longer Attending PT
== END 2022-06-23 13:16 ==
LOC: PHYS 10:30
PROVIDERS: Family Provider Family Medicine; PCP Family Medicine; Referring Provider Otolaryngology; Visit Provider Otolaryngology
DX: H81.11 Benign paroxysmal vertigo, right ear (principal)
CPT/HCPCS: 95992; 97162

== ENCOUNTER → 2022-04-10 13:15 | Outpatient (CLI) | payer OTHER, MEDICAID, SELFPAY ==
--- NOTE | 2022-04-10 13:19 | DI.RAD.S_ITS ---
PROCEDURE: XR KNEE RT 3V INDICATIONS: Progressive right knee pain, post activity swelling TECHNIQUE: 3 views of the knee were acquired. COMPARISON: None. FINDINGS: Bones: No fractures or dislocations. No suspicious bony lesions. Moderate medial compartment osteoarthritis. Mild lateral and patellofemoral compartment osteoarthritis. Soft tissues: No joint effusion. No suspicious soft tissue calcifications. IMPRESSION: Right knee tricompartmental osteoarthritis. Dictated by: Kika Amezcua MD, PhD on 04/10/2022 at 14:30 Approved by: Kika Amezcua MD, PhD on 04/10/2022 at 14:30
--- NOTE | 2022-04-10 13:19 | DI.RAD.S_ITS ---
PROCEDURE: XR HIP W PEL IF DONE FREDRICK MIN 4V INDICATIONS: Bilateral hip pain TECHNIQUE: AP pelvis with lateral view(s) of the bilateral hip(s). COMPARISON: None. FINDINGS: Moderate osteoarthritis in both hips, slightly more pronounced on the left, with joint space narrowing and marginal osteophytosis and subchondral sclerosis. 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 No significant degenerative changes of the sacroiliac joints. No suspicious bone lesion. 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 Dictated by: Alphonso Murillo M.D. on 04/10/2022 at 14:29 Approved by: Alphonso Murillo M.D. on 04/10/2022 at 14:30
== END ==
PROVIDERS: Family Provider Family Medicine; PCP Family Medicine; Referring Provider Family Medicine; Visit Provider Family Medicine
DX: M17.11 Unilateral primary osteoarthritis, right knee (principal); M16.0 Bilateral primary osteoarthritis of hip; M25.561 Pain in right knee; M25.552 Pain in left hip; M25.551 Pain in right hip; G89.29 Other chronic pain
CPT/HCPCS: 73522; 73562

== ENCOUNTER 2022-12-16 18:19 | Emergency (ER) | payer OTHER, MEDICAID, SELFPAY ==
[2022-12-16 18:23] VITALS: BP 207/124; PULSE 84; RESP 20; TEMP 36.9; O2SAT 97; BMI 48.1
--- NOTE | 2022-12-16 18:41 | ED.GENADULT ---
HPI - General Adult General Chief complaint: Dental/Oral Stated complaint: Lt. side bottom of mouth swollen Time Seen by Provider: 12/16/22 18:27 Source: patient Mode of arrival: Ambulatory Limitations: no limitations History of Present Illness HPI narrative: Patient is a 62-year-old female with a history of high blood pressure who is here for evaluation of swelling side of her face/jaw. She has had issues like this in the past. States that prior issues have been related to her teeth. She has been on antibiotics which has taking care of the issues in the past but the event that she currently has is been going on for the past couple days. She does have a sore throat and left ear pain but no problems swallowing. No fevers. She is yet to see a dentist. No skin rashes. She did not take her blood pressure medicine today. Related Data Previous Rx's Medication Instructions Recorded sulfacetamide sodium 10 % eye drops 1 drp EYE-LEFT Q2H #15 mL 03/22/21 cyclobenzaprine 10 mg tablet 10 mg PO TID PRN muscle spasm #14 10/19/21 tabs atorvastatin 40 mg tablet 40 mg PO DAILY #90 tabs 01/16/22 furosemide 40 mg tablet See Rx Instructions PO QDAY PRN 01/16/22 edema #90 tabs metoprolol tartrate 25 mg tablet 25 mg PO BID #180 tabs 01/16/[address] permit #1 ea 03/05/22 omeprazole 40 mg capsule,delayed 40 mg PO BID #180 caps 08/22/22 release apixaban 5 mg tablet (Eliquis) See Rx Instructions .Route 10/03/22 .COMPLEX #60 tabs nitroglycerin 0.4 mg sublingual 0.4 mg sublingual Q5M PRN chest 11/27/22 tablet pain #20 tabs oxybutynin chloride 10 mg 10 mg PO BEDTIME #90 tabs 11/27/22 tablet,extended release 24 hr trazodone 100 mg tablet 100 mg PO BEDTIME #90 tabs 11/27/22 venlafaxine 150 mg 150 mg PO BEDTIME 11/27/22 capsule,extended release 24 hr anxiety/depression #90 caps diaper,brief,adult,disposable #40 ea 11/28/22 (Depend Silhouette For Women L/XL) lisinopril 5 mg tablet See Rx Instructions .Route 12/09/22 .COMPLEX #90 tabs hydrocodone 5 mg-acetaminophen 325 1 tab PO TID PRN pain #90 tabs 12/10/22 mg tablet clindamycin HCl 300 mg capsule 300 mg PO QID 7 days #28 caps 12/16/22 Allergies Allergy/AdvReac Type Severity Reaction Status Date / Time lidocaine [LIDOCAINE] Allergy Unknown Verified 12/16/22 18:33 Penicillins [PENICILLINS] Allergy Unknown Verified 12/16/22 18:33 prednisone [PREDNISONE] Allergy Unknown Verified 12/16/22 18:33 shellfish derived Allergy Unknown Verified 12/16/22 18:33 [SHELLFISH DERIVED] venom-honey bee Allergy Unknown Verified 12/16/22 18:33 [BEE VENOM (HONEY BEE)] procaine [PROCAINE] AdvReac Unknown Verified 12/16/22 18:33 Review of Systems Constitutional Constitutional: Reports system reviewed and no additional complaints, except as documented ENT Ears, Nose, Mouth, and Throat: Reports system reviewed and no additional complaints, except as documented Cardiovascular Cardiovascular: Reports system reviewed and no additional complaints, except as documented Respiratory Respiratory: Reports system reviewed and no additional complaints, except as documented Integumentary/Breasts Skin/Breast: Reports system reviewed and no additional complaints, except as documented Patient History Medical History Anxiety Chronic back pain Chronic left hip pain Chronic low back pain Cognitive impairment Coronary artery disease Crohn's disease Depression Esophageal reflux Family history of osteoporosis Gait difficulty GERD (gastroesophageal reflux disease) Gout Hearing loss Hearing loss History of urinary incontinence Hyperlipidemia Hypertension Insomnia Intention tremor Kidney stones Migraines Nephrolithiasis Osteoarthritis Rheumatoid arthritis Right knee pain Shoulder pain Sleep apnea Urinary incontinence Vertigo Surgical History History of hysterectomy (~2000) Family History Brother Age: 57 Hypertension High cholesterol Father Diabetes mellitus Heart disease Hypertension Grandmother Heart disease Mother Age: 81 Heart disease Grandfather Stroke Grandfather Stroke Grandmother Cancer Sister Liver failure Social History household members: family Smoking Status: Current every day smoker Tobacco: How many years used: 40 quit status: not considering quitting alcohol intake: current (Rarely) substance use type: does not use Smoking Status: Current every day smoker tobacco type: cigarettes alcohol intake frequency: holidays/special occasions only Substance Use Type: does not use Exam Initial Vital Signs Initial Vital Signs: Vital Signs Temperature 98.4 F 12/16/22 18:23 Pulse Rate 84 12/16/22 18:23 Respiratory Rate 20 12/16/22 18:23 Blood Pressure 207/124 H 12/16/22 18:23 Pulse Oximetry 97 12/16/22 18:23 Oxygen Delivery Method 12/16/22 18:23 Const General: cooperative, comfortable and No ill appearing HENMT Head: normal to inspection and normocephalic Ears: TM's normal bilaterally and EAC's normal Mouth: oral mucosae normal and moist mucous membranes Teeth and gingiva: poor dentition Throat: posterior oropharynx normal Resp Effort & Inspection: normal respiratory effort Cardio Rate: regular rate Skin General: no rashes or lesions noted Neuro General: patient alert, patient awake and moves all extremities Course Orders Ordered: Discontinued Medications Clindamycin HCl (Clindamycin 150 Mg Capsule) 300 mg PO NOW ONE Stop: 12/16/22 18:50 Last Admin: 12/16/22 18:54 Dose: 300 mg Documented By: SILVIA Vital Signs Vital signs: Vital Signs - 8 hr 12/16/22 18:23 12/16/22 18:57 Temperature 98.4 F Pulse Rate 84 78 Respiratory Rate 20 18 Blood Pressure 207/124 H 188/88 H Pulse Oximetry 97 99 Oxygen Delivery Method Room Air Room Air Medical Decision Making [facility] Narrative Medical decision making narrative: Patient does have physical exam findings today that would be concerning for a dental infection. There is no intra oral abscess that would be amenable to drainage here in the ER. She is no other signs of infection. She is allergic to penicillin in the last time she was given clindamycin. She stated that this did help her symptoms at that time. Patient is hypertensive but has no chest pain and no shortness of breath. She did not take her blood pressure medicines today. No indication for acute antihypertensive treatment here in the ER. Will discharge patient home with return precautions and with a prescription for antibiotics. She was informed that she needed to follow-up with a dentist for definitive treatment. She expressed understanding and agreement. Her exam is also not consistent with angioedema, Eleazar's angina, peritonsillar abscess, retropharyngeal abscess, parotitis, cellulitis and other. Discharge Plan Departure Patient Disposition: Home Clinical Impression: Dental infection, Hypertension Instructions: Tooth Abscess, High Blood Pressure Activity Restrictions/Additional Instructions: A prescription for the antibiotics was sent to [facility] per your request. It is important that you may contact and follow-up with a dentist. It is also important that you take your blood pressure medications at home as directed. Return to the emergency department for new symptoms. Prescriptions: New clindamycin HCl 300 mg capsule 300 mg PO QID 7 Days Qty: 28 0RF No Action atorvastatin 40 mg tablet 40 mg PO DAILY Qty: 90 3RF furosemide 40 mg tablet See Rx Instructions PO QDAY PRN (Reason: edema) Qty: 90 3RF Dose Instruction: Take 1/2 to 1 tab daily as needed for edema PO QDAY PRN; Take 1/2 to 1 tab daily as needed for edema Rx Instructions: Take 1/2 to 1 tab daily as needed for edema PO daily PRN; metoprolol tartrate 25 mg tablet 25 mg PO BID Qty: 180 3RF (DME) disabled parking permit See Rx Instructions .ROUTE .MEDSUPPLY Qty: 1 0RF Rx Instructions: I find this patient to be medically disabled and qualify for disabled parking as indicated and signed on the accompanying disabled parking application for individuals. omeprazole 40 mg capsule,delayed release(DR/EC) 40 mg PO BID Qty: 180 3RF Eliquis 5 mg tablet See Rx Instructions .ROUTE .COMPLEX Qty: 60 0RF Dose Instruction: TAKE ONE TABLET BY MOUTH TWICE DAILY Rx Instructions: TAKE ONE TABLET BY MOUTH TWICE DAILY lisinopril 5 mg tablet See Rx Instructions .ROUTE .COMPLEX Qty: 90 3RF Dose Instruction: TAKE ONE TABLET BY MOUTH ONE TIME DAILY Rx Instructions: TAKE ONE TABLET BY MOUTH ONE TIME DAILY hydrocodone-acetaminophen 5-325 mg tablet 1 tab PO TID PRN (Reason: pain) Qty: 90 0RF Rx Instructions: Must last 30 days nitroglycerin 0.4 mg tablet, sublingual 0.4 mg sublingual Q5M PRN (Reason: chest pain) Qty: 20 2RF Rx Instructions: do not exceed 3 doses per episode oxybutynin chloride 10 mg tablet extended release 24hr 10 mg PO BEDTIME Qty: 90 1RF trazodone 100 mg tablet 100 mg PO BEDTIME Qty: 90 1RF venlafaxine 150 mg capsule,extended release 24hr 150 mg PO BEDTIME Qty: 90 1RF (DME) Depend Silhouette Women L/XL Misc See Rx Instructions .Route Qty: 40 6RF Rx Instructions: As directed cyclobenzaprine 10 mg tablet 10 mg PO TID PRN (Reason: muscle spasm) Qty: 14 0RF sulfacetamide sodium 10 % drops 1 drp EYE-LEFT Q2H Qty: 15 0RF Referrals: Dannie River DO [Primary Care Provider] - Stand Alone Forms: Patient Portal/API
[2022-12-16] MEDS: CLINDAMYCIN 150 MG CAPSULE 300 MG PO (18:54)
[2022-12-16 18:57] VITALS: BP 188/88; PULSE 78; RESP 18; O2SAT 99
== END 2022-12-16 18:59 | disposition home or self-care (01) ==
PROVIDERS: Emergency Provider Emergency Medicine; Family Provider Family Medicine; PCP Family Medicine
DX: K04.7 Periapical abscess without sinus (principal); I10 Essential (primary) hypertension
CPT/HCPCS: 99283

== ENCOUNTER 2023-01-20 19:17 | Emergency (ER) | payer OTHER, MEDICAID, SELFPAY ==
[2023-01-20] VITALS (12 sets, daily range): BP systolic 161–186; BP diastolic 70–91; PULSE 66–76; RESP 9–21; TEMP 37; O2SAT 92–97; BMI 45.1
--- NOTE | 2023-01-20 19:20 | ED_ITS ---
HPI - Abdominal Pain General Chief Complaint: Abdominal Pain Stated Complaint: LLQ pain Time Seen by Provider: 01/20/23 19:19 History of Present Illness HPI narrative: 62-year-old female daily smoker with history of COPD, TIA, coronary artery disease, Crohn's and irritable bowel presents by EMS for evaluation of sudden onset left lower quadrant pain that started less than 1 hour ago. She states it feels similar in location and on some levels the type of pain as prior episodes of bowel pain but this is much more severe and lasting longer. She states she has had bowel movements today and continues to pass gas without difficulty. She states her pain is worse when she moves and improves with rest. She denies any radiation of the pain. She is nauseated but denies any vomiting. She is had no fever or chills. She denies chest pain or shortness of breath. She denies any urinary complaints such as dysuria, frequency or urgency Related Data Previous Rx's Medication Instructions Recorded atorvastatin 40 mg tablet 40 mg PO DAILY #90 tabs 01/16/22 furosemide 40 mg tablet See Rx Instructions PO QDAY PRN 01/16/22 edema #90 tabs metoprolol tartrate 25 mg tablet 25 mg PO BID #180 tabs 01/16/[address] #1 ea 03/05/22 omeprazole 40 mg capsule,delayed 40 mg PO BID #180 caps 08/22/22 release apixaban 5 mg tablet (Eliquis) See Rx Instructions .Route 10/03/22 .COMPLEX #60 tabs nitroglycerin 0.4 mg sublingual 0.4 mg sublingual Q5M PRN chest 11/27/22 tablet pain #20 tabs venlafaxine 150 mg 150 mg PO BEDTIME 11/27/22 capsule,extended release 24 hr anxiety/depression #90 caps diaper,brief,adult,disposable #40 ea 11/28/22 (Depend Silhouette For Women L/XL) lisinopril 5 mg tablet See Rx Instructions .Route 12/09/22 .COMPLEX #90 tabs trazodone 50 mg tablet 50 mg PO BEDTIME PRN insomnia #30 12/25/22 tabs hydrocodone 5 mg-acetaminophen 325 1 tab PO TID PRN pain #90 tabs 01/02/23 mg tablet hydroxyzine HCl 25 mg tablet 25 mg PO TID PRN panic attack(s) 01/02/23 #90 tabs vibegron 75 mg tablet (Gemtesa) 75 mg PO DAILY #90 tabs 01/05/23 Allergies Allergy/AdvReac Type Severity Reaction Status Date / Time lidocaine [LIDOCAINE] Allergy Unknown Verified 01/20/23 19:24 Penicillins [PENICILLINS] Allergy Unknown Verified 01/20/23 19:24 prednisone [PREDNISONE] Allergy Unknown Verified 01/20/23 19:24 shellfish derived Allergy Unknown Verified 01/20/23 19:24 [SHELLFISH DERIVED] venom-honey bee Allergy Unknown Verified 01/20/23 19:24 [BEE VENOM (HONEY BEE)] procaine [PROCAINE] AdvReac Unknown Verified 01/20/23 19:24 Review of Systems Review of Systems Narrative: GENERAL: Denies chills, fatigue, malaise, fever, sweats. HEENT: Denies sinus pain, ear pain, sore throat, difficulty swallowing, dizziness. RESPIRATORY: Denies dyspnea, cough, wheezing, hemoptysis, sputum. CARDIOVASCULAR: Denies chest pain, palpitations, orthopnea, edema, GASTROINTESTINAL: See HPI : Denies dysuria, frequency, incontinence, hematuria, urinary retention. MUSCULOSKELETAL: denies weakness, joint pain, or bony pain SKIN: Denies rash, skin lesions, or other NEUROLOGIC: Denies weakness, headache, numbness, change in speech, confusion, seizures, incoordination. PSYCHIATRIC: No concerning psychosocial issues. 12 point review of systems is negative except for those stated above Patient History Medical History Anxiety Chronic back pain Chronic left hip pain Chronic low back pain Cognitive impairment Coronary artery disease Crohn's disease Depression Esophageal reflux Family history of osteoporosis Gait difficulty GERD (gastroesophageal reflux disease) Gout H/O coronary stenosis Hearing loss Hearing loss History of kidney stones History of urinary incontinence Hyperlipidemia Hypertension Insomnia Intention tremor Kidney stones Migraines Nephrolithiasis Osteoarthritis Rheumatoid arthritis Right knee pain Shoulder pain Sleep apnea Urinary incontinence Vertigo Surgical History History of hysterectomy (~2000) Hx of hernia repair Family History Brother Age: 57 Hypertension High cholesterol Father Diabetes mellitus Heart disease Hypertension Grandmother Heart disease Mother Age: 81 Heart disease Grandfather Stroke Grandfather Stroke Grandmother Cancer Sister Liver failure Social History marital status: number of children: 6 household members: family Smoking Status: Current every day smoker Tobacco: How many years used: 40 quit status: not considering quitting alcohol intake: current (Rarely) substance use type: does not use caffeine: Yes Smoking Status: Current every day smoker tobacco type: cigarettes alcohol intake frequency: holidays/special occasions only Substance Use Type: does not use Exam Narrative Exam Narrative: GENERAL: [62] year old patient appears stated age. Well-developed patient, in mild distress. HEAD: Atraumatic. Normocephalic. EYES: Pupils equal round and reactive. Extraocular motions intact. No scleral icterus. No injection or drainage. ENT: Nose without bleeding, purulent drainage. Throat without erythema, tonsillar hypertrophy or exudate. Airway patent. NECK: Trachea midline. Non tender CARDIOVASCULAR: Regular rate and rhythm without murmurs, gallops, or rubs. RESPIRATORY: Clear to auscultation. Breath sounds equal bilaterally. No wheezes, rales, or rhonchi. GASTROINTESTINAL: Abdomen largely soft but tender and a bit firm in LLQ, nondistended. EXTREMITIES: No edema or joint tenderness. BACK: Nontender without deformity or crepitance. No flank tenderness. NEURO: AOx3. SKIN: No rash or erythema of visible areas Initial Vital Signs Initial Vital Signs: Vital Signs Temperature 98.6 F 01/20/23 19:18 Pulse Rate 66 01/20/23 19:18 Respiratory Rate 16 01/20/23 19:18 Blood Pressure 186/82 H 01/20/23 19:18 Pulse Oximetry 95 01/20/23 19:18 Oxygen Delivery Method Room Air 01/20/23 19:18 Course Orders Ordered: ED Orders 01/20/23 19:35 Complete Blood Count AUTO DIFF Stat Comprehensive Metabolic Panel Stat Lactate (Lactic Acid) Stat Lipase Stat 01/20/23 20:33 CT abdomen pelvis w con Stat 01/20/23 20:55 Urine Microscopic Stat Discontinued Medications Cyclobenzaprine HCl (Cyclobenzaprine 10 Mg Prepack) 1 bottle MISC SEEINSTR ONE Stop: 01/20/23 22:21 Last Admin: 01/20/23 22:27 Dose: 1 bottle Documented By: GIANA Ondansetron HCl (Ondansetron 4 Mg/2 Ml Inj) 4 mg IV NOW ONE Stop: 01/20/23 19:20 Last Admin: 01/20/23 19:57 Dose: 4 mg Documented By: RB Vital Signs Vital signs: Vital Signs - 8 hr 01/20/23 19:18 01/20/23 19:21 01/20/23 19:22 Temperature 98.6 F Pulse Rate 66 74 Respiratory Rate 16 Blood Pressure 186/82 H Pulse Oximetry 95 94 97 Oxygen Delivery Method Room Air 01/20/23 19:22 01/20/23 19:30 01/20/23 20:00 Temperature Pulse Rate 74 69 Respiratory Rate Blood Pressure 186/82 H Pulse Oximetry 96 97 Oxygen Delivery Method 01/20/23 20:01 01/20/23 20:01 01/20/23 20:30 Temperature Pulse Rate 67 Respiratory Rate 21 Blood Pressure 169/70 H 161/76 H Pulse Oximetry 97 Oxygen Delivery Method 01/20/23 20:30 01/20/23 20:56 01/20/23 20:56 Temperature Pulse Rate 73 74 Respiratory Rate 19 9 L Blood Pressure 173/91 H Pulse Oximetry 93 94 Oxygen Delivery Method 01/20/23 21:10 01/20/23 21:30 01/20/23 22:00 Temperature Pulse Rate 74 75 76 Respiratory Rate 20 Blood Pressure Pulse Oximetry 95 92 92 Oxygen Delivery Method 01/20/23 22:30 Temperature Pulse Rate 71 Respiratory Rate Blood Pressure Pulse Oximetry 94 Oxygen Delivery Method MDM - Abdominal Pain Lab Data 01/20/23 19:35 01/20/23 19:35 Labs: Lab Results 01/20/23 01/20/23 01/20/23 Range/Units 19:35 19:35 19:35 WBC 9.9 (4.5-11.0) X10^3/uL RBC 4.97 (4.0-5.2) X10^6/uL Hgb 15.3 (12.0-16.0) g/dL Hct 45.3 (36-46) % MCV 91.1 (80-100) fL MCH 30.8 (26-34) PG MCHC 33.8 (30-36) % RDW 14.1 (11.6-14.8) % Plt Count 243 (150-400) X10^3/uL Neut % (Auto) 58.8 (50-75) % Lymph % (Auto) 30.3 (25-40) % Newberry % (Auto) 7.4 (3-14) % Eos % (Auto) 2.7 (2-4) % Baso % (Auto) 0.8 (0-2) % Neut # (Auto) 5800 (5271-5796) /uL Lymph # (Auto) 3000 (7204-5634) /uL Newberry # (Auto) 700 (0-900) /uL Eos # (Auto) 300 (0-450) /uL Baso # (Auto) 100 (0-100) /uL Sodium 135 L (137-145) mmol/L Potassium 5.1 (3.4-5.1) mmol/L Chloride 105 (98-107) mmol/L Carbon Dioxide 25 (22-32) mmol/L BUN 14 (7-17) mg/dL Creatinine 0.61 (0.52-1.04) mg/dL Estimated GFR > 60 (>60) mL/min BUN/Creatinine Ratio 23.0 H (6-22) Glucose 122 H (80-110) mg/dL Lactate 1.2 (0.7-2.1) mmol/L Calcium 9.2 (8.4-10.2) mg/dL Total Bilirubin 0.6 (0.2-1.3) mg/dL AST 28 (14-36) IU/L ALT 18 (<35) IU/L Alkaline Phosphatase 47 (38-126) U/L Total Protein 7.3 (6.3-8.2) g/dL Albumin 4.0 (3.5-5.0) g/dL Globulin 3.3 (1.7-4.1) g/dL Albumin/Globulin Ratio 1.2 (1.0-2.8) Lipase 111 (23-300) U/L Urine RBC (0-5/HPF) Urine WBC (0-5/HPF) Ur Squamous Epith Cells (0-5/HPF) Urine Bacteria (None) Ur Culture Indicated? 01/20/23 Range/Units 20:55 WBC (4.5-11.0) X10^3/uL RBC (4.0-5.2) X10^6/uL Hgb (12.0-16.0) g/dL Hct (36-46) % MCV (80-100) fL MCH (26-34) PG MCHC (30-36) % RDW (11.6-14.8) % Plt Count (150-400) X10^3/uL Neut % (Auto) (50-75) % Lymph % (Auto) (25-40) % Newberry % (Auto) (3-14) % Eos % (Auto) (2-4) % Baso % (Auto) (0-2) % Neut # (Auto) (2439-5100) /uL Lymph # (Auto) (9503-1384) /uL Newberry # (Auto) (0-900) /uL Eos # (Auto) (0-450) /uL Baso # (Auto) (0-100) /uL Sodium (137-145) mmol/L Potassium (3.4-5.1) mmol/L Chloride (98-107) mmol/L Carbon Dioxide (22-32) mmol/L BUN (7-17) mg/dL Creatinine (0.52-1.04) mg/dL Estimated GFR (>60) mL/min BUN/Creatinine Ratio (6-22) Glucose (80-110) mg/dL Lactate (0.7-2.1) mmol/L Calcium (8.4-10.2) mg/dL Total Bilirubin (0.2-1.3) mg/dL AST (14-36) IU/L ALT (<35) IU/L Alkaline Phosphatase (38-126) U/L Total Protein (6.3-8.2) g/dL Albumin (3.5-5.0) g/dL Globulin (1.7-4.1) g/dL Albumin/Globulin Ratio (1.0-2.8) Lipase (23-300) U/L Urine RBC 1-5/hpf (0-5/HPF) Urine WBC 1-5/hpf (0-5/HPF) Ur Squamous Epith Cells 5-10 /hpf H (0-5/HPF) Urine Bacteria Occasional (0-1) (None) Ur Culture Indicated? Cult not indicated Point of care testing: Urine Dip Bedside Urine Glucose Negative Bedside Urine Bilirubin - Negative Bedside Urine Ketone - Negative Urine Specific [place]agoner 1.025 Bedside Urine Occult Blood +/- Bedside Urine pH 6.0 Bedside Urine Protein +/- 15 Bedside Urine Urobilinogen - Negative Bedside Urine Nitrite - Negative Bedside Urine Leukocytes - Negative Esterase MDM Narrative Medical decision making narrative: [62] year old patient presents with sudden onset left lower quadrant pain Multiple etiologies for patient's symptoms considered including, but not limited to: [Kidney stone, bowel obstruction, diverticulitis versus other] Prior Charts reviewed in our EMR Primary Historian: patient Labs reviewed and interpreted by myself: No leukocytosis anemia or left shift, electrolytes and renal function within normal Imaging reviewed: No acute process, specifically no obstruction, diverticulitis or kidney stone Patient's symptoms improved over duration of stay with above-stated therapies. Patient's pain well controlled, abdomen soft, tolerating orals. Exam, response to therapies, labs and imaging reassuring Findings and discharge diagnosis discussed with patient/family followed by verbalization of understanding Return precautions discussed with patient/family whom verbalize understanding of diagnosis and plan Discharge Plan Departure Patient Disposition: Home Clinical Impression: Acute left lower quadrant pain Instructions: DI for Abdominal Pain-Adult Activity Restrictions/Additional Instructions: *You have been diagnosed with [Left lower quadrant abdominal pain] * As we discussed your history and physical exam as well as labs and imaging are very reassuring. There is no evidence of any severe diagnoses that would require a specific or immediate intervention. *What to do: *Please continue to take your regular medications as directed. *Please follow up with your primary care provider in 2-3 days, call for an appointment. Let them know you were seen in the Emergency Department and that we ask that you be seen in follow up. We will electronically transmit a record of today's note if your PCP is in our system *Please consider a clear liquid diet for the next 24-48 hours and then slowly advance to regular as tolerated. Also, try to avoid alcohol, nicotine, caffeine, spicy, acidic or fatty foods as this may worsen your symptoms *If you do not have a primary care provider please contact the [facility] Resource line at [phone]. They will ask some questions about your medical history and help get you set up with a doctor in the community. *Return to Emergency Department if you should have any new, worsening or concerning symptoms, such as [fever greater than 101 F, shaking chills, worsening pain, persistent vomiting or other bothersome symptoms] Prescriptions: No Action atorvastatin 40 mg tablet 40 mg PO DAILY Qty: 90 3RF furosemide 40 mg tablet See Rx Instructions PO QDAY PRN (Reason: edema) Qty: 90 3RF Dose Instruction: Take 1/2 to 1 tab daily as needed for edema PO QDAY PRN; Take 1/2 to 1 tab daily as needed for edema Rx Instructions: Take 1/2 to 1 tab daily as needed for edema PO daily PRN; metoprolol tartrate 25 mg tablet 25 mg PO BID Qty: 180 3RF (DME) disabled parking permit See Rx Instructions .ROUTE .MEDSUPPLY Qty: 1 0RF Rx Instructions: I find this patient to be medically disabled and qualify for disabled parking as indicated and signed on the accompanying disabled parking application for individuals. omeprazole 40 mg capsule,delayed release(DR/EC) 40 mg PO BID Qty: 180 3RF Eliquis 5 mg tablet See Rx Instructions .ROUTE .COMPLEX Qty: 60 0RF Dose Instruction: TAKE ONE TABLET BY MOUTH TWICE DAILY Rx Instructions: TAKE ONE TABLET BY MOUTH TWICE DAILY lisinopril 5 mg tablet See Rx Instructions .ROUTE .COMPLEX Qty: 90 3RF Dose Instruction: TAKE ONE TABLET BY MOUTH ONE TIME DAILY Rx Instructions: TAKE ONE TABLET BY MOUTH ONE TIME DAILY trazodone 50 mg tablet 50 mg PO BEDTIME PRN (Reason: insomnia) Qty: 30 1RF hydrocodone-acetaminophen 5-325 mg tablet 1 tab PO TID PRN (Reason: pain) Qty: 90 0RF Rx Instructions: Must last 30 days hydroxyzine HCl 25 mg tablet 25 mg PO TID PRN (Reason: panic attack(s)) Qty: 90 1RF nitroglycerin 0.4 mg tablet, sublingual 0.4 mg sublingual Q5M PRN (Reason: chest pain) Qty: 20 2RF Rx Instructions: do not exceed 3 doses per episode venlafaxine 150 mg capsule,extended release 24hr 150 mg PO BEDTIME Qty: 90 1RF (DME) Depend Silhouette Women L/XL Misc See Rx Instructions .Route Qty: 40 6RF Rx Instructions: As directed Gemtesa 75 mg tablet 75 mg PO DAILY Qty: 90 3RF Referrals: Dannie River, [Primary Care Provider] - Stand Alone Forms: Patient Portal/API
[2023-01-20 19:50] LABS: Add Manual Diff / Slide Review NO; Basophils Absolute Auto 100 /uL (0-100); Basophils Percent Auto 0.8 % (0-2); Eosinophils Absolute Auto 300 /uL (0-450); Eosinophils Percent Auto 2.7 % (2-4); Hematocrit 45.3 % (36-46); Hemoglobin 15.3 g/dL (12.0-16.0); Lymphocytes Absolute Auto 3000 /uL (1100-4500); Lymphocytes Percent Auto 30.3 % (25-40); Mean Corpuscular HGB Conc 33.8 % (30-36); Mean Corpuscular Hemoglobin 30.8 PG (26-34); Mean Corpuscular Volume 91.1 fL (80-100); Monocytes Absolute Auto 700 /uL (0-900); Monocytes Percent Auto 7.4 % (3-14); Neutrophils Absolute Auto 5800 /uL (1500-7000); Neutrophils Percent Auto 58.8 % (50-75); Platelet Count 243 X10^3/uL (150-400); Red Blood Cell Count 4.97 X10^6/uL (4.0-5.2); Red Cell Distribution Width 14.1 % (11.6-14.8); White Blood Cell Count 9.9 X10^3/uL (4.5-11.0)
[2023-01-20] MEDS: ONDANSETRON 4 MG/2 ML INJ IV (19:57)
[2023-01-20 20:13] LABS: Lactate (Lactic Acid) 1.2 mmol/L (0.7-2.1)
[2023-01-20 20:14] LABS: Alanine Aminotransferase 18 IU/L (<35); Albumin Globulin Ratio 1.2 (1.0-2.8); Alkaline Phosphatase 47 U/L (38-126); Aspartate Aminotransferase 28 IU/L (14-36); Bilirubin Total 0.6 mg/dL (0.2-1.3); Blood Urea Nitrogen 14 mg/dL (7-17); Calcium 9.2 mg/dL (8.4-10.2); Carbon Dioxide 25 mmol/L (22-32); Chloride 105 mmol/L (98-107); Estimated Glomerular Filt Rate > 60 mL/min (>60); Globulin 3.3 g/dL (1.7-4.1); Glucose 122 mg/dL (80-110); Lipase 111 U/L (23-300); Potassium 5.1 mmol/L (3.4-5.1); Sodium 135 mmol/L (137-145); Total Protein 7.3 g/dL (6.3-8.2)
[2023-01-20 20:19] LABS: HEMOLYSIS 128 (0-50)
--- NOTE | 2023-01-20 20:33 | DI.CT.S_ITS ---
PROCEDURE: CT ABDOMEN PELVIS W CON INDICATIONS: severe LLQ pain TECHNIQUE: After the administration of IV contrast, axial sections were acquired from the lung bases to the pubic symphysis. Coronal and sagittal reformats were performed. For radiation dose reduction, the following was used: automated exposure control, adjustment of mA and/or kV according to patient size. COMPARISON: [facility], CT, ABDOMEN/PELVIS WITH CONTRAST, 06/25/2017, 20:32. FINDINGS: Image quality: Excellent. Lung bases: There is minimal dependent atelectasis. Heart: Heart is normal in size. ABDOMEN: Liver: No mass lesion. Gallbladder: Within normal limits without calcified gallstones. Biliary ducts: No biliary ductal dilatation. Pancreas: Unremarkable. Spleen: Normal in size. Adrenal Glands: No adrenal nodules. Kidneys and Ureters: No hydronephrosis. There is a small left renal cortical cysts. Stomach and Bowel: Stomach, small bowel loops, and colon are normal in caliber and wall thickness. Appendix is normal. No evidence of diverticulitis. Peritoneum: No abnormal intraperitoneal fluid. No free air. Ventral Wall: There is a fat-containing ventral infraumbilical hernia. Abdominal Nodes: No retroperitoneal or mesenteric adenopathy by size criteria. Vessels: Aorta and inferior vena cava are normal in size. PELVIS: Pelvic Organs: Unremarkable. Bladder: Unremarkable. Pelvic Nodes: No enlarged lymph nodes. Miscellaneous: No inguinal hernias are seen. Bones: Visualized osseous structures demonstrate no suspicious focal lesions. IMPRESSION: 1. No definite acute intra-abdominal abnormality. Specifically, no evidence of diverticulitis. 2. No evidence of obstructive uropathy. 3. Fat-containing ventral infraumbilical hernia. Dictated by: Ortiz Ozuna M.D. on 01/20/2023 at 21:53 Approved by: Ortiz Ozuna M.D. on 01/20/2023 at 21:56
[2023-01-20 21:41] LABS: Bacteria Urine Occasional (0-1); Culture Indicated Urine Cult Not Indicated; RBC Urine 1-5/HPF (0-5/HPF); Squamous Epithelial Cell Urine 5-10 /HPF (0-5/HPF); WBC Urine 1-5/HPF (0-5/HPF)
[2023-01-20] MEDS: CYCLOBENZAPRINE 10 MG PREPACK 1 BOTTLE MISC (22:27)
== END 2023-01-20 22:33 | disposition home or self-care (01) ==
PROVIDERS: Emergency Provider Emergency Medicine; Family Provider Family Medicine; PCP Family Medicine
DX: R10.32 Left lower quadrant pain (principal); Z79.01 Long term (current) use of anticoagulants; Z79.899 Other long term (current) drug therapy
CPT/HCPCS: 36415; 74177; 80053; 81003; 81015; 83605; 83690; 85025; 96374; 99284; J2405; Q9967

== ENCOUNTER 2023-03-13 18:59 | Emergency (ER) | payer OTHER, MEDICAID, SELFPAY ==
[2023-03-13 19:30] VITALS: BP 128/77; PULSE 66; RESP 18; TEMP 36.8; O2SAT 99; BMI 45.0
[2023-03-13 20:02] LABS: Add Manual Diff / Slide Review NO; Basophils Absolute Auto 100 /uL (0-100); Basophils Percent Auto 0.9 % (0-2); Eosinophils Absolute Auto 300 /uL (0-450); Eosinophils Percent Auto 2.7 % (2-4); Hematocrit 42.6 % (36-46); Hemoglobin 14.7 g/dL (12.0-16.0); Lymphocytes Absolute Auto 2600 /uL (1100-4500); Lymphocytes Percent Auto 27.2 % (25-40); Mean Corpuscular HGB Conc 34.5 % (30-36); Mean Corpuscular Hemoglobin 30.7 PG (26-34); Mean Corpuscular Volume 89.1 fL (80-100); Monocytes Absolute Auto 700 /uL (0-900); Monocytes Percent Auto 6.9 % (3-14); Neutrophils Absolute Auto 6000 /uL (1500-7000); Neutrophils Percent Auto 62.3 % (50-75); Platelet Count 242 X10^3/uL (150-400); Red Blood Cell Count 4.78 X10^6/uL (4.0-5.2); Red Cell Distribution Width 14.1 % (11.6-14.8); White Blood Cell Count 9.7 X10^3/uL (4.5-11.0)
[2023-03-13 20:16] LABS: Alanine Aminotransferase 19 IU/L (<35); Albumin 4.2 g/dL (3.5-5.0); Albumin Globulin Ratio 1.3 (1.0-2.8); Alkaline Phosphatase 53 U/L (38-126); Aspartate Aminotransferase 21 IU/L (14-36); BUN Creatinine Ratio 17.2 (6-22); Bilirubin Total 0.4 mg/dL (0.2-1.3); Blood Urea Nitrogen 11 mg/dL (7-17); Calcium 9.2 mg/dL (8.4-10.2); Carbon Dioxide 26 mmol/L (22-32); Chloride 103 mmol/L (98-107); Estimated Glomerular Filt Rate > 60 mL/min (>60); Globulin 3.2 g/dL (1.7-4.1); Glucose 126 mg/dL (80-110); HEMOLYSIS 47 (0-50); Lipase 83 U/L (23-300); Sodium 137 mmol/L (137-145); Total Protein 7.4 g/dL (6.3-8.2)
[2023-03-13 21:04] VITALS: BP 110/70; PULSE 60; RESP 14; O2SAT 96
--- NOTE | 2023-03-13 22:46 | ED.ABDPAIN ---
HPI - Abdominal Pain General Chief Complaint: Abdominal Pain Stated Complaint: ABD pain, Bloody stool Time Seen by Provider: 03/13/23 22:13 Source: patient Mode of arrival: Wheelchair History of Present Illness HPI narrative: Patient is a 62-year-old female daily smoker history of COPD, TIA, coronary artery disease, Crohn's disease and irritable bowel presents with left upper quadrant pain. She reports that it started today. She did have 1 bloody bowel movement. She is not dizzy or lightheaded. She was seen and evaluated here 01/20/2023 for the exact same thing. She says that the pain got better she never followed up with her primary care provider. She is on a blood thinner, Eliquis for coronary artery disease and TIA. It appears as though she had a bottle cyclobenzaprine it seemed to help. Related Data Previous Rx's Medication Instructions Recorded atorvastatin 40 mg tablet 40 mg PO DAILY #90 tabs 01/16/22 furosemide 40 mg tablet See Rx Instructions PO QDAY PRN 01/16/22 edema #90 tabs metoprolol tartrate 25 mg tablet 25 mg PO BID #180 tabs 01/16/[address] #1 ea 03/05/22 omeprazole 40 mg capsule,delayed 40 mg PO BID #180 caps 08/22/22 release apixaban 5 mg tablet (Eliquis) See Rx Instructions .Route 10/03/22 .COMPLEX #60 tabs nitroglycerin 0.4 mg sublingual 0.4 mg sublingual Q5M PRN chest 11/27/22 tablet pain #20 tabs venlafaxine 150 mg 150 mg PO BEDTIME 11/27/22 capsule,extended release 24 hr anxiety/depression #90 caps diaper,brief,adult,disposable #40 ea 11/28/22 (Depend Silhouette For Women L/XL) lisinopril 5 mg tablet See Rx Instructions .Route 12/09/22 .COMPLEX #90 tabs trazodone 50 mg tablet 50 mg PO BEDTIME PRN insomnia #30 12/25/22 tabs hydroxyzine HCl 25 mg tablet 25 mg PO TID PRN panic attack(s) 01/02/23 #90 tabs vibegron 75 mg tablet (Gemtesa) 75 mg PO DAILY #90 tabs 01/05/23 hydrocodone 5 mg-acetaminophen 325 1 tab PO TID PRN pain #90 tabs 03/11/23 mg tablet Allergies Allergy/AdvReac Type Severity Reaction Status Date / Time lidocaine [LIDOCAINE] Allergy Unknown Verified 03/13/23 19:45 Penicillins [PENICILLINS] Allergy Unknown Verified 03/13/23 19:45 prednisone [PREDNISONE] Allergy Unknown Verified 03/13/23 19:45 shellfish derived Allergy Unknown Verified 03/13/23 19:45 [SHELLFISH DERIVED] venom-honey bee Allergy Unknown Verified 03/13/23 19:45 [BEE VENOM (HONEY BEE)] procaine [PROCAINE] AdvReac Unknown Verified 03/13/23 19:45 Review of Systems Review of Systems ROS Unobtainable: All systems reviewed & are unremarkable except as noted in HPI and below Patient History Medical History Anxiety Chronic back pain Chronic left hip pain Chronic low back pain Cognitive impairment Coronary artery disease Crohn's disease Depression Esophageal reflux Family history of osteoporosis Gait difficulty GERD (gastroesophageal reflux disease) Gout H/O coronary stenosis Hearing loss Hearing loss History of kidney stones History of urinary incontinence Hyperlipidemia Hypertension Insomnia Intention tremor Kidney stones Migraines Nephrolithiasis Osteoarthritis Rheumatoid arthritis Right knee pain Shoulder pain Sleep apnea Urinary incontinence Vertigo Surgical History History of hysterectomy (~2000) Hx of hernia repair Family History Brother Age: 57 Hypertension High cholesterol Father Diabetes mellitus Heart disease Hypertension Grandmother Heart disease Mother Age: 81 Heart disease Grandfather Stroke Grandfather Stroke Grandmother Cancer Sister Liver failure Social History marital status: number of children: 6 household members: family Smoking Status: Current every day smoker Tobacco: How many years used: 40 quit status: not considering quitting alcohol intake: current (Rarely) substance use type: does not use caffeine: Yes Smoking Status: Current every day smoker tobacco type: cigarettes alcohol intake frequency: holidays/special occasions only Substance Use Type: does not use Exam Initial Vital Signs Initial Vital Signs: Vital Signs Temperature 98.3 F 03/13/23 19:30 Pulse Rate 66 03/13/23 19:30 Respiratory Rate 18 03/13/23 19:30 Blood Pressure 128/77 03/13/23 19:30 Pulse Oximetry 99 03/13/23 19:30 Oxygen Delivery Method Room Air 03/13/23 19:30 GENERAL: Alert 62-year-old female BMI 45 sleeping, arousable HEENT: Head atraumatic,EOMI, pupils reactive, face symmetric, moist mucous membranes CARDIOVASCULAR: Regular rate and rhythm without murmurs, rubs or gallops. RESPIRATORY: Breath sounds equal bilaterally, no wheezes rales or rhonchi. ABDOMEN: Soft, nontender. Normoactive bowel sounds all 4 quadrants. No guarding or rebound. EXTREMITIES: Normal range of motion, no clubbing or edema. Neurovascularly intact NEUROLOGICAL: Alert and oriented x4.Normal gait and speech. SKIN: Warm, dry, no laceration, no petechiae, no rashes or lesions. Course Orders Ordered: ED Orders 03/13/23 23:03 CT abdomen pelvis w con Stat Discontinued Medications Acetaminophen (Acetaminophen 325 Mg Tablet) 975 mg PO NOW ONE Stop: 03/13/23 23:04 Last Admin: 03/14/23 01:09 Dose: 975 mg Documented By: MINDY Cyclobenzaprine HCl (Cyclobenzaprine 10 Mg Prepack) 1 bottle MISC SEEINSTR ONE Stop: 03/14/23 01:03 Last Admin: 03/14/23 01:09 Dose: 1 bottle Documented By: MINDY Ondansetron HCl (Ondansetron 4 Mg Odt) 4 mg PO NOW PRN PRN Reason: Nausea And Vomiting Ondansetron HCl (Ondansetron 4 Mg/2 Ml Inj) 4 mg IV NOW PRN PRN Reason: Nausea And Vomiting Vital Signs Vital signs: Vital Signs - 8 hr 03/14/23 01:14 Pulse Rate 63 Blood Pressure 154/89 H Pulse Oximetry 95 Oxygen Delivery Method Room Air MDM - Abdominal Pain Lab Data 03/13/23 19:55 03/13/23 19:55 Labs: Lab Results 03/13/23 03/13/23 Range/Units 19:55 19:55 WBC 9.7 (4.5-11.0) X10^3/uL RBC 4.78 (4.0-5.2) X10^6/uL Hgb 14.7 (12.0-16.0) g/dL Hct 42.6 (36-46) % MCV 89.1 (80-100) fL MCH 30.7 (26-34) PG MCHC 34.5 (30-36) % RDW 14.1 (11.6-14.8) % Plt Count 242 (150-400) X10^3/uL Neut % (Auto) 62.3 (50-75) % Lymph % (Auto) 27.2 (25-40) % [place] % (Auto) 6.9 (3-14) % Eos % (Auto) 2.7 (2-4) % Baso % (Auto) 0.9 (0-2) % Neut # (Auto) 6000 (6550-1155) /uL Lymph # (Auto) 2600 (8713-3885) /uL [place] # (Auto) 700 (0-900) /uL Eos # (Auto) 300 (0-450) /uL Baso # (Auto) 100 (0-100) /uL Sodium 137 (137-145) mmol/L Potassium 4.0 (3.4-5.1) mmol/L Chloride 103 (98-107) mmol/L Carbon Dioxide 26 (22-32) mmol/L BUN 11 (7-17) mg/dL Creatinine 0.64 (0.52-1.04) mg/dL Estimated GFR > 60 (>60) mL/min BUN/Creatinine Ratio 17.2 (6-22) Glucose 126 H (80-110) mg/dL Calcium 9.2 (8.4-10.2) mg/dL Total Bilirubin 0.4 (0.2-1.3) mg/dL AST 21 (14-36) IU/L ALT 19 (<35) IU/L Alkaline Phosphatase 53 (38-126) U/L Total Protein 7.4 (6.3-8.2) g/dL Albumin 4.2 (3.5-5.0) g/dL Globulin 3.2 (1.7-4.1) g/dL Albumin/Globulin Ratio 1.3 (1.0-2.8) Lipase 83 (23-300) U/L Imaging Data CT scan - abdomen/pelvis: Radiologist's Impression: PROCEDURE:? CT ABDOMEN PELVIS W CON ? INDICATIONS:? left sided pain ? TECHNIQUE:? After the administration of IV contrast, axial sections were acquired from the lung bases to the pubic symphysis.? Coronal and sagittal reformats were performed.? For radiation dose reduction, the following was used:? automated exposure control, adjustment of mA and/or kV according to patient size. ? COMPARISON:? [facility], CT, ABDOMEN/PELVIS WITH CONTRAST, 06/25/2017, 20:32.? [facility], CT, CT ABDOMEN PELVIS W CON, 01/20/2023, 20:44. ? FINDINGS:? Image quality:? Excellent.? ? Lung bases:? There is minimal basilar atelectasis.? ? Heart:? Heart is normal in size. ? ? ABDOMEN: Liver:? No mass lesion. Gallbladder:? Within normal limits without calcified gallstones.? ? Biliary ducts:? No biliary ductal dilatation.? ? Pancreas:? Unremarkable.? ? Spleen:? Normal in size.? ? Adrenal Glands:? No adrenal nodules.? ? Kidneys and Ureters:? No hydronephrosis.? There is a small left renal cortical cyst measuring up to 1.2 cm.? ? Stomach and Bowel:? Stomach, small bowel loops, and colon are normal in caliber and wall thickness.? The appendix is normal. Peritoneum:? No abnormal intraperitoneal fluid.? No free air.? ? Ventral Wall: ? There is a left paracentral fat-containing periumbilical hernia.? No evidence of herniated bowel loops. Abdominal Nodes:? No retroperitoneal or mesenteric adenopathy by size criteria.? Vessels:? Aorta and inferior vena cava are normal in size.? ? PELVIS: Pelvic Organs:? Unremarkable.? ? Bladder:? Unremarkable.? ? Pelvic Nodes: No enlarged lymph nodes.? Miscellaneous: No inguinal hernias. ? ? ? Bones:? Visualized osseous structures demonstrate no suspicious focal lesions. ? IMPRESSION:? ? 1. Left paracentral fat-containing periumbilical hernia.? No evidence of bowel herniation.? No bowel obstruction.? ? ? Dictated by: Ortiz Ozuna M.D. on 03/14/2023 at 0:50 ? ? Approved by: Ortiz Ozuna M.D. on 03/14/2023 at 0:53 ? MDM Narrative Medical decision making narrative: Patient is 62-year-old female who presents with left upper quadrant pain, she is had a presentation similar to this previously. She has a known ventral hernia. She is nauseous but no vomiting. No leukocytosis no anemia no electrolyte abnormality or [place]. CT shows persistent hernia. She is requesting muscle relaxer she got cyclobenzaprine last time which seemed to help her. She is already on Eliquis can not have Toradol increase risk of bleeding. She is given Tylenol and Zofran. Sleeping most of her time here. No nausea vomiting abdomen is relatively soft. She is a chronic hernia likely causing her pain. Pain is certainly not out of proportion no concern for ischemic bowel. Discharge Plan Departure Patient Disposition: Home Clinical Impression: Abdominal hernia Instructions: Ventral Hernia Activity Restrictions/Additional Instructions: *You have been diagnosed with abdominal hernia *What to do: At this time you do have a fat containing hernia it appears stable compared to last time. *Continue to take medications as directed Cyclobenzaprine 10 mg every 8 hours if needed for pain this worked for you last time *Follow up with your primary care provider in 2-3 days or call [phone] *Return to ER if you should have increasing pain nausea vomiting fever or any new, worsening or concerning symptoms Prescriptions: No Action atorvastatin 40 mg tablet 40 mg PO DAILY Qty: 90 3RF furosemide 40 mg tablet See Rx Instructions PO QDAY PRN (Reason: edema) Qty: 90 3RF Dose Instruction: Take 1/2 to 1 tab daily as needed for edema PO QDAY PRN; Take 1/2 to 1 tab daily as needed for edema Rx Instructions: Take 1/2 to 1 tab daily as needed for edema PO daily PRN; metoprolol tartrate 25 mg tablet 25 mg PO BID Qty: 180 3RF (DME) disabled parking permit See Rx Instructions .ROUTE .MEDSUPPLY Qty: 1 0RF Rx Instructions: I find this patient to be medically disabled and qualify for disabled parking as indicated and signed on the accompanying disabled parking application for individuals. omeprazole 40 mg capsule,delayed release(DR/EC) 40 mg PO BID Qty: 180 3RF Eliquis 5 mg tablet See Rx Instructions .ROUTE .COMPLEX Qty: 60 0RF Dose Instruction: TAKE ONE TABLET BY MOUTH TWICE DAILY Rx Instructions: TAKE ONE TABLET BY MOUTH TWICE DAILY lisinopril 5 mg tablet See Rx Instructions .ROUTE .COMPLEX Qty: 90 3RF Dose Instruction: TAKE ONE TABLET BY MOUTH ONE TIME DAILY Rx Instructions: TAKE ONE TABLET BY MOUTH ONE TIME DAILY trazodone 50 mg tablet 50 mg PO BEDTIME PRN (Reason: insomnia) Qty: 30 1RF hydroxyzine HCl 25 mg tablet 25 mg PO TID PRN (Reason: panic attack(s)) Qty: 90 1RF hydrocodone-acetaminophen 5-325 mg tablet 1 tab PO TID PRN (Reason: pain) Qty: 90 0RF Rx Instructions: Must last 30 days nitroglycerin 0.4 mg tablet, sublingual 0.4 mg sublingual Q5M PRN (Reason: chest pain) Qty: 20 2RF Rx Instructions: do not exceed 3 doses per episode venlafaxine 150 mg capsule,extended release 24hr 150 mg PO BEDTIME Qty: 90 1RF (DME) Depend Silhouette Women L/XL Misc See Rx Instructions .Route Qty: 40 6RF Rx Instructions: As directed Gemtesa 75 mg tablet 75 mg PO DAILY Qty: 90 3RF Referrals: Dannie River, [Primary Care Provider] - Stand Alone Forms: Patient Portal/API
--- NOTE | 2023-03-13 23:03 | DI.CT.S_ITS ---
PROCEDURE: CT ABDOMEN PELVIS W CON INDICATIONS: left sided pain TECHNIQUE: After the administration of IV contrast, axial sections were acquired from the lung bases to the pubic symphysis. Coronal and sagittal reformats were performed. For radiation dose reduction, the following was used: automated exposure control, adjustment of mA and/or kV according to patient size. COMPARISON: [facility], CT, ABDOMEN/PELVIS WITH CONTRAST, 06/25/2017, 20:32. [facility], CT, CT ABDOMEN PELVIS W CON, 01/20/2023, 20:44. FINDINGS: Image quality: Excellent. Lung bases: There is minimal basilar atelectasis. Heart: Heart is normal in size. ABDOMEN: Liver: No mass lesion. Gallbladder: Within normal limits without calcified gallstones. Biliary ducts: No biliary ductal dilatation. Pancreas: Unremarkable. Spleen: Normal in size. Adrenal Glands: No adrenal nodules. Kidneys and Ureters: No hydronephrosis. There is a small left renal cortical cyst measuring up to 1.2 cm. Stomach and Bowel: Stomach, small bowel loops, and colon are normal in caliber and wall thickness. The appendix is normal. Peritoneum: No abnormal intraperitoneal fluid. No free air. Ventral Wall: There is a left paracentral fat-containing periumbilical hernia. No evidence of herniated bowel loops. Abdominal Nodes: No retroperitoneal or mesenteric adenopathy by size criteria. Vessels: Aorta and inferior vena cava are normal in size. PELVIS: Pelvic Organs: Unremarkable. Bladder: Unremarkable. Pelvic Nodes: No enlarged lymph nodes. Miscellaneous: No inguinal hernias. Bones: Visualized osseous structures demonstrate no suspicious focal lesions. IMPRESSION: 1. Left paracentral fat-containing periumbilical hernia. No evidence of bowel herniation. No bowel obstruction. Dictated by: Ortiz Ozuna M.D. on 03/14/2023 at 0:50 Approved by: Ortiz Ozuna M.D. on 03/14/2023 at 0:53
[2023-03-14] MEDS: CYCLOBENZAPRINE 10 MG PREPACK 1 BOTTLE MISC (01:09)
[2023-03-14] MEDS: ACETAMINOPHEN 325 MG TABLET 975 MG PO (01:09)
[2023-03-14 01:14] VITALS: BP 154/89; PULSE 63; O2SAT 95
== END 2023-03-14 01:15 | disposition home or self-care (01) ==
PROVIDERS: Emergency Provider Emergency Medicine; Family Provider Family Medicine; PCP Family Medicine
DX: K43.9 Ventral hernia without obstruction or gangrene (principal)
CPT/HCPCS: 36415; 74177; 80053; 83690; 85025; 99283; 99284

== ENCOUNTER 2023-05-21 17:15 | Emergency (ER) | payer OTHER, MEDICAID, SELFPAY ==
[2023-05-21 17:35] VITALS: BP 194/108; PULSE 67; RESP 20; TEMP 36.7; O2SAT 94; BMI 45.0
--- NOTE | 2023-05-21 17:40 | PC.NURSE ---
Pt refusing IV until in a room
== END 2023-05-21 18:32 | disposition left against medical advice (07) ==
PROVIDERS: Emergency Provider Emergency Medicine; Family Provider Family Medicine; PCP Family Medicine
CPT/HCPCS: 99281

== ENCOUNTER → 2023-06-25 15:46 | Outpatient (CLI) | payer OTHER, MEDICAID, SELFPAY ==
[2023-06-25 17:20] LABS: Add Manual Diff / Slide Review NO; Basophils Absolute Auto 100 /uL (0-100); Eosinophils Absolute Auto 300 /uL (0-450); Eosinophils Percent Auto 2.6 % (2-4); Hematocrit 45.8 % (36-46); Hemoglobin 15.7 g/dL (12.0-16.0); Lymphocytes Absolute Auto 3300 /uL (1100-4500); Lymphocytes Percent Auto 33.8 % (25-40); Mean Corpuscular HGB Conc 34.4 % (30-36); Mean Corpuscular Hemoglobin 31.2 PG (26-34); Mean Corpuscular Volume 90.7 fL (80-100); Monocytes Absolute Auto 700 /uL (0-900); Monocytes Percent Auto 7.3 % (3-14); Neutrophils Absolute Auto 5400 /uL (1500-7000); Neutrophils Percent Auto 55.3 % (50-75); Platelet Count 261 X10^3/uL (150-400); Red Blood Cell Count 5.05 X10^6/uL (4.0-5.2); Red Cell Distribution Width 14.6 % (11.6-14.8); White Blood Cell Count 9.7 X10^3/uL (4.5-11.0)
[2023-06-25 17:35] LABS: BUN Creatinine Ratio 17.5 (6-22); Blood Urea Nitrogen 14 mg/dL (7-17); Carbon Dioxide 28 mmol/L (22-32); Chloride 103 mmol/L (98-107); Estimated Glomerular Filt Rate > 60 mL/min (>60); Glucose 99 mg/dL (80-110); HEMOLYSIS 34 (0-50); Potassium 3.8 mmol/L (3.4-5.1); Sodium 138 mmol/L (137-145)
== END ==
PROVIDERS: Family Provider Family Medicine; PCP Family Medicine; Referring Provider Surgery; Visit Provider Surgery
DX: Z01.818 Encounter for other preprocedural examination (principal); K43.2 Incisional hernia without obstruction or gangrene
CPT/HCPCS: 36415; 80048; 85025; 93005

== ENCOUNTER 2023-07-10 14:45 | Emergency (ER) | payer OTHER, MEDICAID, SELFPAY ==
[2023-07-10] VITALS (24 sets, daily range): BP systolic 98–166; BP diastolic 53–89; PULSE 56–67; RESP 11–28; TEMP 36.4; O2SAT 94–98; BMI 48.2
--- NOTE | 2023-07-10 15:00 | DI.RAD.S_ITS ---
PROCEDURE: XR CHEST 1V INDICATIONS: chest pain TECHNIQUE: One view of the chest was acquired. COMPARISON: [facility], CR, XR CHEST 2V, 10/07/2019, 15:23. FINDINGS: Surgical changes and devices: None. Lungs and pleura: Lungs are clear. No pleural effusions or pneumothorax. Mediastinum: Mediastinal contours appear normal. Heart size is normal. Bones and chest wall: No suspicious bony lesions. Overlying soft tissues appear unremarkable. IMPRESSION: Portable chest within normal limits for age. Dictated by: Tomasa Francis M.D. on 07/10/2023 at 15:20 Approved by: Tomasa Francis M.D. on 07/10/2023 at 15:20
[2023-07-10 15:28] LABS: Add Manual Diff / Slide Review NO; Basophils Absolute Auto 100 /uL (0-100); Eosinophils Absolute Auto 300 /uL (0-450); Eosinophils Percent Auto 3.1 % (2-4); Hematocrit 42.6 % (36-46); Hemoglobin 14.6 g/dL (12.0-16.0); Lymphocytes Absolute Auto 2900 /uL (1100-4500); Lymphocytes Percent Auto 35.2 % (25-40); Mean Corpuscular HGB Conc 34.2 % (30-36); Mean Corpuscular Hemoglobin 31.1 PG (26-34); Monocytes Absolute Auto 600 /uL (0-900); Monocytes Percent Auto 7.1 % (3-14); Neutrophils Absolute Auto 4500 /uL (1500-7000); Neutrophils Percent Auto 53.6 % (50-75); Platelet Count 259 X10^3/uL (150-400); Prothrombin Time 11.7 SECONDS (10.1-12.7); Red Blood Cell Count 4.68 X10^6/uL (4.0-5.2); Red Cell Distribution Width 14.2 % (11.6-14.8); White Blood Cell Count 8.3 X10^3/uL (4.5-11.0)
[2023-07-10 15:31] LABS: PTT Partial Thromboplastin Tim 33 SECONDS (26-36)
[2023-07-10 15:34] LABS: Alanine Aminotransferase 19 IU/L (<35); Albumin 3.7 g/dL (3.5-5.0); Albumin Globulin Ratio 1.2 (1.0-2.8); Alkaline Phosphatase 56 U/L (38-126); Aspartate Aminotransferase 21 IU/L (14-36); BUN Creatinine Ratio 11.7 (6-22); Bilirubin Total 0.2 mg/dL (0.2-1.3); Blood Urea Nitrogen 7 mg/dL (7-17); Calcium 8.8 mg/dL (8.4-10.2); Carbon Dioxide 25 mmol/L (22-32); Chloride 106 mmol/L (98-107); Creatine Kinase 51 U/L (30-135); Estimated Glomerular Filt Rate > 60 mL/min (>60); Globulin 3.1 g/dL (1.7-4.1); Glucose 158 mg/dL (80-110); HEMOLYSIS < 15 (0-50); Lipase 84 U/L (23-300); Magnesium 2.1 mg/dL (1.6-2.3); Potassium 3.5 mmol/L (3.4-5.1); Sodium 140 mmol/L (137-145); Total Protein 6.8 g/dL (6.3-8.2)
[2023-07-10 15:46] LABS: Troponin I < 0.012 ng/mL (0.01-0.034)
--- NOTE | 2023-07-10 17:42 | ED.CHESTPAIN ---
HPI - Chest Pain <Mp Villarreal MD - Last Filed: 07/23/23 09:03> General Chief Complaint: Chest Pain Stated Complaint: Chest Pain Time Seen by Provider: 07/10/23 17:40 Source: patient and EMS Mode of arrival: EMS Limitations: no limitations History of Present Illness HPI narrative: Patient brought here by ambulance from parking lot for complaints of chest pain that was relieved with patient's home nitro. Blood pressure was low heart low but improved IV fluids by EMS. Patient just had stress test with her de ionizer operator 2 days ago for medical clearance for hernia repair surgery. He actually called patient while she was here to inform abnormal stress test results and needed repeat stress test Related Data Home Medications Medication Instructions Recorded Confirmed aspirin 81 mg tablet,delayed 81 mg PO DAILY 07/21/23 07/21/23 release (Adult Aspirin Regimen) Previous Rx's Medication Instructions Recorded atorvastatin 40 mg tablet 40 mg PO DAILY #90 tabs 01/16/22 furosemide 40 mg tablet See Rx Instructions PO QDAY PRN 01/16/22 edema #90 tabs metoprolol tartrate 25 mg tablet 25 mg PO BID #180 tabs 01/16/[address] #1 ea 03/05/22 omeprazole 40 mg capsule,delayed 40 mg PO BID #180 caps 08/22/22 release apixaban 5 mg tablet (Eliquis) See Rx Instructions .Route 10/03/22 .COMPLEX #60 tabs nitroglycerin 0.4 mg sublingual 0.4 mg sublingual Q5M PRN chest 11/27/22 tablet pain #20 tabs lisinopril 5 mg tablet See Rx Instructions .Route 12/09/22 .COMPLEX #90 tabs trazodone 50 mg tablet 50 mg PO BEDTIME PRN insomnia #30 12/25/22 tabs hydroxyzine HCl 25 mg tablet 25 mg PO TID PRN panic attack(s) 01/02/23 #90 tabs hydrocodone 5 mg-acetaminophen 325 1 tab PO TID PRN pain #90 tabs 07/15/23 mg tablet lorazepam 0.5 mg tablet 0.5 mg PO BID PRN anxiety #20 tabs 07/15/23 diaper,brief,adult,disposable #40 ea 07/21/23 (Depend Silhouette For Women L/XL) Allergies Allergy/AdvReac Type Severity Reaction Status Date / Time lidocaine [LIDOCAINE] Allergy Unknown Verified 07/21/23 10:43 Penicillins [PENICILLINS] Allergy Unknown Verified 07/21/23 10:43 prednisone [PREDNISONE] Allergy Unknown Verified 07/21/23 10:43 shellfish derived Allergy Unknown Verified 07/21/23 10:43 [SHELLFISH DERIVED] venom-honey bee Allergy Unknown Verified 07/21/23 10:43 [BEE VENOM (HONEY BEE)] procaine [PROCAINE] AdvReac Unknown Verified 07/21/23 10:43 Patient History <Mp Villarreal MD - Last Filed: 07/23/23 09:03> Medical History Anxiety Bradycardia Chronic back pain Chronic left hip pain Chronic low back pain Cognitive impairment Coronary artery disease Crohn's disease Cystocele Depression Esophageal reflux Family history of osteoporosis Gait difficulty GERD (gastroesophageal reflux disease) Gout H/O coronary stenosis Hearing loss Hearing loss History of kidney stones History of urinary incontinence Hyperglycemia Hyperlipidemia Hypertension Insomnia Intention tremor Kidney stones Migraines Nephrolithiasis Osteoarthritis Paroxysmal atrial fibrillation Postmenopausal atrophic vaginitis Rectocele Rheumatoid arthritis Right knee pain Shoulder pain Sleep apnea Tobacco use disorder Urinary incontinence Vertigo Surgical History History of hysterectomy (~2000) Hx of hernia repair Family History Brother Age: 58 Hypertension High cholesterol Father Diabetes mellitus Heart disease Hypertension Grandmother Heart disease Mother Age: 82 Heart disease Grandfather Stroke Grandfather Stroke Grandmother Cancer Sister Liver failure Social History marital status: number of children: 6 household members: family Smoking Status: Current every day smoker Tobacco: How many years used: 40 quit status: not considering quitting alcohol intake: current (Rarely) substance use type: does not use caffeine: Yes Smoking Status: Current every day smoker tobacco type: cigarettes alcohol intake frequency: holidays/special occasions only Substance Use Type: does not use Exam <Mp Villarreal MD - Last Filed: 07/23/23 09:03> Initial Vital Signs Initial Vital Signs: Vital Signs Pulse Rate 63 07/10/23 14:53 Pulse Oximetry 94 07/10/23 14:53 <Hi Rockwell DO - Last Filed: 07/10/23 19:24> Initial Vital Signs Initial Vital Signs: Vital Signs Pulse Rate 63 07/10/23 14:53 Pulse Oximetry 94 07/10/23 14:53 Course <Mp Villarreal MD - Last Filed: 07/23/23 09:03> Orders Ordered: Discontinued Medications Aspirin (Aspirin 81 Mg Chew Tab) 324 mg PO NOW ONE Stop: 07/10/23 15:00 Last Admin: 07/10/23 19:28 Dose: Not Given Documented By: SILVIA Vital Signs Vital signs: Vital Signs - 8 hr 07/10/23 15:01 07/10/23 14:53 07/10/23 14:54 Temperature 97.5 F L Pulse Rate 60 63 Respiratory Rate 14 Blood Pressure 111/61 111/61 Pulse Oximetry 95 94 Oxygen Delivery Method Room Air 07/10/23 14:54 07/10/23 15:00 07/10/23 15:00 Temperature Pulse Rate 60 58 L Respiratory Rate 18 Blood Pressure 115/65 Pulse Oximetry 95 95 Oxygen Delivery Method 07/10/23 15:16 07/10/23 15:16 07/10/23 15:30 Temperature Pulse Rate 59 L 58 L Respiratory Rate 19 16 Blood Pressure 125/66 Pulse Oximetry 96 96 Oxygen Delivery Method 07/10/23 15:31 07/10/23 15:31 07/10/23 16:00 Temperature Pulse Rate 59 L Respiratory Rate 28 H Blood Pressure 98/53 L 140/68 Pulse Oximetry 96 Oxygen Delivery Method 07/10/23 16:00 07/10/23 16:15 07/10/23 16:15 Temperature Pulse Rate 56 L 59 L Respiratory Rate 11 L Blood Pressure 133/72 Pulse Oximetry 97 97 Oxygen Delivery Method 07/10/23 16:30 07/10/23 16:30 07/10/23 16:45 Temperature Pulse Rate 57 L 57 L Respiratory Rate Blood Pressure 132/72 Pulse Oximetry 98 97 Oxygen Delivery Method 07/10/23 16:45 07/10/23 17:00 07/10/23 17:00 Temperature Pulse Rate 58 L Respiratory Rate 14 Blood Pressure 135/72 137/76 Pulse Oximetry 96 Oxygen Delivery Method Room Air 07/10/23 17:15 07/10/23 17:15 07/10/23 17:30 Temperature Pulse Rate 61 Respiratory Rate Blood Pressure 132/76 138/76 Pulse Oximetry 98 Oxygen Delivery Method 07/10/23 17:30 07/10/23 17:45 07/10/23 17:45 Temperature Pulse Rate 60 60 Respiratory Rate Blood Pressure 145/73 H Pulse Oximetry 98 98 Oxygen Delivery Method 07/10/23 18:00 07/10/23 18:00 07/10/23 18:15 Temperature Pulse Rate 64 Respiratory Rate Blood Pressure 166/75 H 156/89 H Pulse Oximetry 97 Oxygen Delivery Method 07/10/23 18:15 Temperature Pulse Rate 67 Respiratory Rate 14 Blood Pressure Pulse Oximetry 97 Oxygen Delivery Method Room Air <Hi Rockwell, DO - Last Filed: 07/10/23 19:24> Orders Ordered: Discontinued Medications Aspirin (Aspirin 81 Mg Chew Tab) 324 mg PO NOW ONE Stop: 07/10/23 15:00 Last Admin: 07/10/23 19:28 Dose: Not Given Documented By: SILVIA Vital Signs Vital signs: Vital Signs - 8 hr 07/10/23 15:01 07/10/23 14:53 07/10/23 14:54 Temperature 97.5 F L Pulse Rate 60 63 Respiratory Rate 14 Blood Pressure 111/61 111/61 Pulse Oximetry 95 94 Oxygen Delivery Method Room Air 07/10/23 14:54 07/10/23 15:00 07/10/23 15:00 Temperature Pulse Rate 60 58 L Respiratory Rate 18 Blood Pressure 115/65 Pulse Oximetry 95 95 Oxygen Delivery Method 07/10/23 15:16 07/10/23 15:16 07/10/23 15:30 Temperature Pulse Rate 59 L 58 L Respiratory Rate 19 16 Blood Pressure 125/66 Pulse Oximetry 96 96 Oxygen Delivery Method 07/10/23 15:31 07/10/23 15:31 07/10/23 16:00 Temperature Pulse Rate 59 L Respiratory Rate 28 H Blood Pressure 98/53 L 140/68 Pulse Oximetry 96 Oxygen Delivery Method 07/10/23 16:00 07/10/23 16:15 07/10/23 16:15 Temperature Pulse Rate 56 L 59 L Respiratory Rate 11 L Blood Pressure 133/72 Pulse Oximetry 97 97 Oxygen Delivery Method 07/10/23 16:30 07/10/23 16:30 07/10/23 16:45 Temperature Pulse Rate 57 L 57 L Respiratory Rate Blood Pressure 132/72 Pulse Oximetry 98 97 Oxygen Delivery Method 07/10/23 16:45 07/10/23 17:00 07/10/23 17:00 Temperature Pulse Rate 58 L Respiratory Rate 14 Blood Pressure 135/72 137/76 Pulse Oximetry 96 Oxygen Delivery Method Room Air 07/10/23 17:15 07/10/23 17:15 07/10/23 17:30 Temperature Pulse Rate 61 Respiratory Rate Blood Pressure 132/76 138/76 Pulse Oximetry 98 Oxygen Delivery Method 07/10/23 17:30 07/10/23 17:45 07/10/23 17:45 Temperature Pulse Rate 60 60 Respiratory Rate Blood Pressure 145/73 H Pulse Oximetry 98 98 Oxygen Delivery Method 07/10/23 18:00 07/10/23 18:00 07/10/23 18:15 Temperature Pulse Rate 64 Respiratory Rate Blood Pressure 166/75 H 156/89 H Pulse Oximetry 97 Oxygen Delivery Method 07/10/23 18:15 Temperature Pulse Rate 67 Respiratory Rate 14 Blood Pressure Pulse Oximetry 97 Oxygen Delivery Method Room Air MDM - Chest Pain <Mp Villarreal MD - Last Filed: 07/23/23 09:03> Lab Data 07/10/23 15:10 07/10/23 15:10 Labs: Lab Results 07/10/23 07/10/23 07/10/23 Range/Units 15:10 15:10 15:10 WBC 8.3 (4.5-11.0) X10^3/uL RBC 4.68 (4.0-5.2) X10^6/uL Hgb 14.6 (12.0-16.0) g/dL Hct 42.6 (36-46) % MCV 91.0 (80-100) fL MCH 31.1 (26-34) PG MCHC 34.2 (30-36) % RDW 14.2 (11.6-14.8) % Plt Count 259 (150-400) X10^3/uL Neut % (Auto) 53.6 (50-75) % Lymph % (Auto) 35.2 (25-40) % [place] % (Auto) 7.1 (3-14) % Eos % (Auto) 3.1 (2-4) % Baso % (Auto) 1.0 (0-2) % Neut # (Auto) 4500 (0050-3346) /uL Lymph # (Auto) 2900 (0447-2365) /uL [place] # (Auto) 600 (0-900) /uL Eos # (Auto) 300 (0-450) /uL Baso # (Auto) 100 (0-100) /uL PT 11.7 (10.1-12.7) SECONDS INR 1.0 (0.9-1.3) APTT 33 (26-36) SECONDS Sodium 140 (137-145) mmol/L Potassium 3.5 (3.4-5.1) mmol/L Chloride 106 (98-107) mmol/L Carbon Dioxide 25 (22-32) mmol/L BUN 7 (7-17) mg/dL Creatinine 0.60 (0.52-1.04) mg/dL Estimated GFR > 60 (>60) mL/min BUN/Creatinine Ratio 11.7 (6-22) Glucose 158 H (80-110) mg/dL Calcium 8.8 (8.4-10.2) mg/dL Magnesium 2.1 (1.6-2.3) mg/dL Total Bilirubin 0.2 (0.2-1.3) mg/dL AST 21 (14-36) IU/L ALT 19 (<35) IU/L Alkaline Phosphatase 56 (38-126) U/L Total Creatine Kinase 51 (30-135) U/L Troponin I < 0.012 (0.01-0.034) ng/mL Total Protein 6.8 (6.3-8.2) g/dL Albumin 3.7 (3.5-5.0) g/dL Globulin 3.1 (1.7-4.1) g/dL Albumin/Globulin Ratio 1.2 (1.0-2.8) Lipase 84 (23-300) U/L 07/10/23 Range/Units 17:35 WBC (4.5-11.0) X10^3/uL RBC (4.0-5.2) X10^6/uL Hgb (12.0-16.0) g/dL Hct (36-46) % MCV (80-100) fL MCH (26-34) PG MCHC (30-36) % RDW (11.6-14.8) % Plt Count (150-400) X10^3/uL Neut % (Auto) (50-75) % Lymph % (Auto) (25-40) % [place] % (Auto) (3-14) % Eos % (Auto) (2-4) % Baso % (Auto) (0-2) % Neut # (Auto) (1081-2821) /uL Lymph # (Auto) (9896-4282) /uL [place] # (Auto) (0-900) /uL Eos # (Auto) (0-450) /uL Baso # (Auto) (0-100) /uL PT (10.1-12.7) SECONDS INR (0.9-1.3) APTT (26-36) SECONDS Sodium (137-145) mmol/L Potassium (3.4-5.1) mmol/L Chloride (98-107) mmol/L Carbon Dioxide (22-32) mmol/L BUN (7-17) mg/dL Creatinine (0.52-1.04) mg/dL Estimated GFR (>60) mL/min BUN/Creatinine Ratio (6-22) Glucose (80-110) mg/dL Calcium (8.4-10.2) mg/dL Magnesium (1.6-2.3) mg/dL Total Bilirubin (0.2-1.3) mg/dL AST (14-36) IU/L ALT (<35) IU/L Alkaline Phosphatase (38-126) U/L Total Creatine Kinase (30-135) U/L Troponin I < 0.012 (0.01-0.034) ng/mL Total Protein (6.3-8.2) g/dL Albumin (3.5-5.0) g/dL Globulin (1.7-4.1) g/dL Albumin/Globulin Ratio (1.0-2.8) Lipase (23-300) U/L Imaging Data Chest x-ray: Radiologist's Impression: [address] [address] XRay Report Signed Patient: Sadie Kwok MR#: [id number] : 1960 Acct:[id number] Age/Sex: 62 / F Date of Service: 07/10/23 Loc: ED Accession Number: [id number] ?? Procedure: XR chest 1V Ordering Provider: Mp Villarreal MD PROCEDURE:? XR CHEST 1V ? INDICATIONS:? chest pain ? TECHNIQUE:? One view of the chest was acquired.? ? COMPARISON:? [facility], CR, XR CHEST 2V, 10/07/2019, 15:23. ? FINDINGS:? ? Surgical changes and devices:? None.? ? Lungs and pleura:? Lungs are clear.? No pleural effusions or pneumothorax.? ? Mediastinum:? Mediastinal contours appear normal.? Heart size is normal.? ? Bones and chest wall:? No suspicious bony lesions.? Overlying soft tissues appear unremarkable.? ? ? IMPRESSION:? Portable chest within normal limits for age. ? ? Dictated by: Tomasa Francis M.D. on 07/10/2023 at 15:20 ? ? Approved by: Tomasa Francis M.D. on 07/10/2023 at 15:20 ? MDM Narrative Medical decision making narrative: Patient brought here by ambulance from parking [facility] for complaints of chest pain that was relieved with patient's home nitro. Blood pressure was low heart low but improved IV fluids by EMS. Patient just had stress test with her de ionizer operator 2 days ago for medical clearance for hernia repair surgery. He actually called patient while she was here to inform abnormal stress test results and needed repeat stress test After history and exam CBC CMP troponin EKG chest x-ray MDM CC: Chest pain Complicating co-morbidities: Heart stent Data collected from: Patient Medical records reviewed: No recent visit here for this complaint Differential considered: Includes but not limited to STEMI non-STEMI angina Exam documented above, pertinent findings include: Nontender chest Lab Test results independently reviewed as above. Pertinent findings: Troponin less than 0.012 Independently reviewed EKG sinus bradycardia rate [address] elevation or depression, repeat EKG sinus bradycardia rate [address] elevation or depression Imaging studies independently reviewed: Chest x-ray no acute finding Consultations: 5:50 p.m.. Spoke with cardiology Dr. 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 She just had abnormal stress test 2 days ago, he would like patient to be transferred to [facility] Treatments: Aspirin Re-evaluations: Reviewed results with patient. At this time she does agree and understands need for transfer to [facility]. She received a phone call from Cardiology, Dr. Mcqueen who read the stress test 2 days ago, was covering for her de ionizer operator dr orellana, informed her that her stress test was abnormal Discussion: Appropriate for transfer. Will need higher level of care at request of patient's de ionizer operator. This is not a non-STEMI. No heparin indicated. Diagnosis: Chest pain 6:00 p.m.. [place]lle: Sign out to Dr Rockwell, awaiting callback from [facility] for transfer, will need to talk to hospitalist. No heparin indicated this time. Not a non-STEMI, patient is chest pain-free <Hi Rockwell, DO - Last Filed: 07/10/23 19:24> Lab Data Labs: Lab Results 07/10/23 07/10/23 07/10/23 Range/Units 15:10 15:10 15:10 WBC 8.3 (4.5-11.0) X10^3/uL RBC 4.68 (4.0-5.2) X10^6/uL Hgb 14.6 (12.0-16.0) g/dL Hct 42.6 (36-46) % MCV 91.0 (80-100) fL MCH 31.1 (26-34) PG MCHC 34.2 (30-36) % RDW 14.2 (11.6-14.8) % Plt Count 259 (150-400) X10^3/uL Neut % (Auto) 53.6 (50-75) % Lymph % (Auto) 35.2 (25-40) % [place] % (Auto) 7.1 (3-14) % Eos % (Auto) 3.1 (2-4) % Baso % (Auto) 1.0 (0-2) % Neut # (Auto) 4500 (6869-5820) /uL Lymph # (Auto) 2900 (8336-7075) /uL [place] # (Auto) 600 (0-900) /uL Eos # (Auto) 300 (0-450) /uL Baso # (Auto) 100 (0-100) /uL PT 11.7 (10.1-12.7) SECONDS INR 1.0 (0.9-1.3) APTT 33 (26-36) SECONDS Sodium 140 (137-145) mmol/L Potassium 3.5 (3.4-5.1) mmol/L Chloride 106 (98-107) mmol/L Carbon Dioxide 25 (22-32) mmol/L BUN 7 (7-17) mg/dL Creatinine 0.60 (0.52-1.04) mg/dL Estimated GFR > 60 (>60) mL/min BUN/Creatinine Ratio 11.7 (6-22) Glucose 158 H (80-110) mg/dL Calcium 8.8 (8.4-10.2) mg/dL Magnesium 2.1 (1.6-2.3) mg/dL Total Bilirubin 0.2 (0.2-1.3) mg/dL AST 21 (14-36) IU/L ALT 19 (<35) IU/L Alkaline Phosphatase 56 (38-126) U/L Total Creatine Kinase 51 (30-135) U/L Troponin I < 0.012 (0.01-0.034) ng/mL Total Protein 6.8 (6.3-8.2) g/dL Albumin 3.7 (3.5-5.0) g/dL Globulin 3.1 (1.7-4.1) g/dL Albumin/Globulin Ratio 1.2 (1.0-2.8) Lipase 84 (23-300) U/L 07/10/23 Range/Units 17:35 WBC (4.5-11.0) X10^3/uL RBC (4.0-5.2) X10^6/uL Hgb (12.0-16.0) g/dL Hct (36-46) % MCV (80-100) fL MCH (26-34) PG MCHC (30-36) % RDW (11.6-14.8) % Plt Count (150-400) X10^3/uL Neut % (Auto) (50-75) % Lymph % (Auto) (25-40) % [place] % (Auto) (3-14) % Eos % (Auto) (2-4) % Baso % (Auto) (0-2) % Neut # (Auto) (2237-3431) /uL Lymph # (Auto) (5676-0676) /uL [place] # (Auto) (0-900) /uL Eos # (Auto) (0-450) /uL Baso # (Auto) (0-100) /uL PT (10.1-12.7) SECONDS INR (0.9-1.3) APTT (26-36) SECONDS Sodium (137-145) mmol/L Potassium (3.4-5.1) mmol/L Chloride (98-107) mmol/L Carbon Dioxide (22-32) mmol/L BUN (7-17) mg/dL Creatinine (0.52-1.04) mg/dL Estimated GFR (>60) mL/min BUN/Creatinine Ratio (6-22) Glucose (80-110) mg/dL Calcium (8.4-10.2) mg/dL Magnesium (1.6-2.3) mg/dL Total Bilirubin (0.2-1.3) mg/dL AST (14-36) IU/L ALT (<35) IU/L Alkaline Phosphatase (38-126) U/L Total Creatine Kinase (30-135) U/L Troponin I < 0.012 (0.01-0.034) ng/mL Total Protein (6.3-8.2) g/dL Albumin (3.5-5.0) g/dL Globulin (1.7-4.1) g/dL Albumin/Globulin Ratio (1.0-2.8) Lipase (23-300) U/L [facility] Narrative Medical decision making narrative: Patient brought here by ambulance from parking lot for complaints of chest pain that was relieved with patient's home nitro. Blood pressure was low heart low but improved IV fluids by EMS. Patient just had stress test with her de ionizer operator 2 days ago for medical clearance for hernia repair surgery. He actually called patient while she was here to inform abnormal stress test results and needed repeat stress test After history and exam CBC CMP troponin EKG chest x-ray [facility] CC: Chest pain Complicating co-morbidities: Heart stent Data collected from: Patient Medical records reviewed: No recent visit here for this complaint Differential considered: Includes but not limited to STEMI non-STEMI angina Exam documented above, pertinent findings include: Nontender chest Lab Test results independently reviewed as above. Pertinent findings: Troponin less than 0.012 Independently reviewed EKG sinus bradycardia rate [address] elevation or depression, repeat EKG sinus bradycardia rate [address] elevation or depression Imaging studies independently reviewed: Chest x-ray no acute finding Consultations: 5:50 p.m.. Spoke with cardiology Dr. 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 She just had abnormal stress test 2 days ago, he would like patient to be transferred to [facility] Treatments: Aspirin Re-evaluations: Reviewed results with patient. At this time she does agree and understands need for transfer to [facility]. She received a phone call from Cardiology, Dr. Mcqueen who read the stress test 2 days ago, was covering for her de ionizer operator dr orellana, informed her that her stress test was abnormal Discussion: Appropriate for transfer. Will need higher level of care at request of patient's de ionizer operator. This is not a non-STEMI. No heparin indicated. Diagnosis: Chest pain 6:00 p.m.. [place]: Sign out to Dr Rockwell, awaiting callback from [facility] for transfer, will need to talk to hospitalist. No heparin indicated this time. Not a non-STEMI, patient is chest pain-free Dr Rockwell: Received turned over. Review patient's history and physical and workup up to this point. Troponins have been negative. EKG is nonischemic. Did have a positive stress test earlier this week. Cardiology recommended transfer to [facility]. Discussed the case with hospitalist at [facility] who accepts patient for transfer. Patient is stable for transport. Discharge Plan Departure Patient Disposition: [facility] Clinical Impression: Chest pain Prescriptions: No Action atorvastatin 40 mg tablet 40 mg PO DAILY Qty: 90 3RF furosemide 40 mg tablet See Rx Instructions PO QDAY PRN (Reason: edema) Qty: 90 3RF Dose Instruction: Take 1/2 to 1 tab daily as needed for edema PO QDAY PRN; Take 1/2 to 1 tab daily as needed for edema Rx Instructions: Take 1/2 to 1 tab daily as needed for edema PO daily PRN; metoprolol tartrate 25 mg tablet 25 mg PO BID Qty: 180 3RF (DME) disabled parking permit See Rx Instructions .ROUTE .MEDSUPPLY Qty: 1 0RF Rx Instructions: I find this patient to be medically disabled and qualify for disabled parking as indicated and signed on the accompanying disabled parking application for individuals. omeprazole 40 mg capsule,delayed release(DR/EC) 40 mg PO BID Qty: 180 3RF Eliquis 5 mg tablet See Rx Instructions .ROUTE .COMPLEX Qty: 60 0RF Dose Instruction: TAKE ONE TABLET BY MOUTH TWICE DAILY Rx Instructions: TAKE ONE TABLET BY MOUTH TWICE DAILY lisinopril 5 mg tablet See Rx Instructions .ROUTE .COMPLEX Qty: 90 3RF Dose Instruction: TAKE ONE TABLET BY MOUTH ONE TIME DAILY Rx Instructions: TAKE ONE TABLET BY MOUTH ONE TIME DAILY trazodone 50 mg tablet 50 mg PO BEDTIME PRN (Reason: insomnia) Qty: 30 1RF hydroxyzine HCl 25 mg tablet 25 mg PO TID PRN (Reason: panic attack(s)) Qty: 90 1RF hydrocodone-acetaminophen 5-325 mg tablet 1 tab PO TID PRN (Reason: pain) Qty: 90 0RF Rx Instructions: Must last 30 days lorazepam 0.5 mg tablet 0.5 mg PO BID PRN (Reason: anxiety) Qty: 20 0RF aspirin [Adult Aspirin Regimen] 81 mg tablet,delayed release (DR/EC) 81 mg PO DAILY (DME) Depend Silhouette Women L/XL Misc See Rx Instructions .Route Qty: 40 6RF Rx Instructions: As directed nitroglycerin 0.4 mg tablet, sublingual 0.4 mg sublingual Q5M PRN (Reason: chest pain) Qty: 20 2RF Rx Instructions: do not exceed 3 doses per episode Referrals: Dannie River, [Primary Care Provider] -
[2023-07-10 18:08] LABS: Troponin I < 0.012 ng/mL (0.01-0.034)
== END 2023-07-10 20:00 | disposition short-term general hospital (02) ==
PROVIDERS: Emergency Provider Emergency Medicine; Family Provider Family Medicine; PCP Family Medicine
DX: R07.9 Chest pain, unspecified (principal); Z95.5 Presence of coronary angioplasty implant and graft; Z79.899 Other long term (current) drug therapy
CPT/HCPCS: 36415; 71045; 80053; 82550; 83690; 83735; 84484; 85025; 85610; 85730; 93005; 93010; 99283

== ENCOUNTER 2023-09-05 14:10 | Emergency (ER) | payer MEDICARE, MEDICAID, SELFPAY ==
[2023-09-05 14:20] VITALS: BP 179/106; PULSE 66; RESP 20; TEMP 36.8; O2SAT 96; BMI 46.7
--- NOTE | 2023-09-05 14:46 | ED.ABDPAIN ---
HPI - Abdominal Pain <Alfa Madison PA-C - Last Filed: 09/05/23 15:08> General Chief Complaint: Dental/Oral Stated Complaint: hernia incision coming open Time Seen by Provider: 09/05/23 14:45 Source: patient Mode of arrival: Ambulatory History of Present Illness HPI narrative: This is a 62-year-old female presents to the emergency department due to Concerns that her 3 laparoscopic incision sites or opening up after having hernia surgery [address] Haney. Denies any nausea, vomiting, diarrhea, abdominal pain, fevers COVID chills she is also complaining of a possible dental infection as she states that her teeth are infected. Denies any difficulty breathing or swallowing. Related Data Home Medications Medication Instructions Recorded Confirmed aspirin 81 mg tablet,delayed 81 mg PO DAILY 07/21/23 08/14/23 release (Adult Aspirin Regimen) Previous Rx's Medication Instructions Recorded atorvastatin 40 mg tablet 40 mg PO DAILY #90 tabs 01/16/22 furosemide 40 mg tablet See Rx Instructions PO QDAY PRN 01/16/22 edema #90 tabs metoprolol tartrate 25 mg tablet 25 mg PO BID #180 tabs 01/16/[address] #1 ea 03/05/22 omeprazole 40 mg capsule,delayed 40 mg PO BID #180 caps 08/22/22 release apixaban 5 mg tablet (Eliquis) See Rx Instructions .Route 10/03/22 .COMPLEX #60 tabs nitroglycerin 0.4 mg sublingual 0.4 mg sublingual Q5M PRN chest 11/27/22 tablet pain #20 tabs lisinopril 5 mg tablet See Rx Instructions .Route 12/09/22 .COMPLEX #90 tabs trazodone 50 mg tablet 50 mg PO BEDTIME PRN insomnia #30 12/25/22 tabs hydroxyzine HCl 25 mg tablet 25 mg PO TID PRN panic attack(s) 01/02/23 #90 tabs diaper,brief,adult,disposable #40 ea 07/21/23 (Depend Silhouette For Women L/XL) hydrocodone 5 mg-acetaminophen 325 1 tab PO TID PRN pain #90 tabs 08/11/23 mg tablet clindamycin HCl 300 mg capsule 300 mg PO TID #30 caps 09/05/23 Allergies Allergy/AdvReac Type Severity Reaction Status Date / Time lidocaine [LIDOCAINE] Allergy Unknown Verified 09/05/23 14:29 Penicillins [PENICILLINS] Allergy Unknown Verified 09/05/23 14:29 prednisone [PREDNISONE] Allergy Unknown Verified 09/05/23 14:29 shellfish derived Allergy Unknown Verified 09/05/23 14:29 [SHELLFISH DERIVED] venom-honey bee Allergy Unknown Verified 09/05/23 14:29 [BEE VENOM (HONEY BEE)] lorazepam AdvReac Mild Rash Verified 09/05/23 14:29 oxycodone AdvReac Mild Rash Verified 09/05/23 14:29 procaine [PROCAINE] AdvReac Unknown Verified 09/05/23 14:29 Review of Systems <Alfa Madison PA-C - Last Filed: 09/05/23 15:08> Review of Systems Narrative: GENERAL: Denies chills, fatigue, malaise, fever, sweats. HEENT: Reports dental pain Denies sinus pain, ear pain, sore throat, difficulty swallowing, dizziness. RESPIRATORY: Denies dyspnea, cough, wheezing, hemoptysis, sputum. CARDIOVASCULAR: Denies chest pain, palpitations, orthopnea, edema, GASTROINTESTINAL: Denies nausea, vomiting, abdominal pain, diarrhea, constipation, melena. : Denies dysuria, frequency, incontinence, hematuria, urinary retention. MUSCULOSKELETAL: denies weakness, joint pain, or bony pain SKIN: 3 laparoscopic surgical incision sites to the left abdomen NEUROLOGIC: Denies weakness, headache, numbness, change in speech, confusion, seizures, incoordination. PSYCHIATRIC: No concerning psychosocial issues. 12 point review of systems is negative except for those stated above Patient History <Alfa Madison PA-C - Last Filed: 09/05/23 15:08> Medical History Onychomycosis Paroxysmal atrial fibrillation Tobacco use disorder Hyperglycemia Bradycardia Rectocele Cystocele Postmenopausal atrophic vaginitis H/O coronary stenosis History of kidney stones Hyperlipidemia Gait difficulty Insomnia Right knee pain Cognitive impairment Hearing loss Family history of osteoporosis Intention tremor Hypertension GERD (gastroesophageal reflux disease) Nephrolithiasis Chronic low back pain Chronic left hip pain Urinary incontinence Coronary artery disease Esophageal reflux Rheumatoid arthritis Osteoarthritis Sleep apnea Depression Anxiety Migraines Shoulder pain Gout Chronic back pain Vertigo Hearing loss History of urinary incontinence Kidney stones Crohn's disease Surgical History History of umbilical hernia repair Hx of hernia repair History of hysterectomy (~2000) Family History Brother Age: 58 Hypertension High cholesterol Father Diabetes mellitus Heart disease Hypertension Grandmother Heart disease Mother Age: 82 Heart disease Grandfather Stroke Grandfather Stroke Grandmother Cancer Sister Liver failure Social History marital status: number of children: 6 household members: family Smoking Status: Current every day smoker Tobacco: How many years used: 40 quit status: not considering quitting alcohol intake: current (Rarely) substance use type: does not use caffeine: Yes Smoking Status: Current every day smoker tobacco type: cigarettes alcohol intake frequency: holidays/special occasions only Substance Use Type: does not use Exam <Alfa Madison PA-C - Last Filed: 09/05/23 15:08> Narrative Exam Narrative: GENERAL: Well-developed patient, in mild distress. HEAD: Atraumatic. Normocephalic. EYES: Pupils equal round and reactive. Extraocular motions intact. No scleral icterus. No injection or drainage. ENT: Very poor dentition, erythema to the upper gumline. No visible abscesses. Nose without bleeding, purulent drainage. Throat without erythema, tonsillar hypertrophy or exudate. Airway patent. NECK: Trachea midline. Non tender CARDIOVASCULAR: Regular rate and rhythm without murmurs, gallops, or rubs. RESPIRATORY: Clear to auscultation. Breath sounds equal bilaterally. No wheezes, rales, or rhonchi. GASTROINTESTINAL: Abdomen soft, non-tender, nondistended. EXTREMITIES: No edema or joint tenderness. BACK: Nontender without deformity or crepitance. No flank tenderness. NEURO: AOx3. SKIN: 3 laparoscopic incision sites to the left side of the abdomen. No spreading erythema, no purulent drainage, scabbed over Initial Vital Signs Initial Vital Signs: Vital Signs Temperature 98.2 F 09/05/23 14:20 Pulse Rate 66 09/05/23 14:20 Respiratory Rate 20 09/05/23 14:20 Blood Pressure 179/106 H 09/05/23 14:20 Pulse Oximetry 96 09/05/23 14:20 Oxygen Delivery Method Room Air 09/05/23 14:20 <Komal Guzman DO - Last Filed: 09/06/23 21:02> Initial Vital Signs Initial Vital Signs: Vital Signs Temperature 98.2 F 09/05/23 14:20 Pulse Rate 66 09/05/23 14:20 Respiratory Rate 20 09/05/23 14:20 Blood Pressure 179/106 H 09/05/23 14:20 Pulse Oximetry 96 09/05/23 14:20 Oxygen Delivery Method Room Air 09/05/23 14:20 Course <Alfa Madison PA-C - Last Filed: 09/05/23 15:08> Vital Signs Vital signs: Vital Signs - 8 hr 09/05/23 14:20 Temperature 98.2 F Pulse Rate 66 Respiratory Rate 20 Blood Pressure 179/106 H Pulse Oximetry 96 Oxygen Delivery Method Room Air <Komal Guzman DO - Last Filed: 09/06/23 21:02> Vital Signs Vital signs: Vital Signs - 8 hr 09/05/23 14:20 Temperature 98.2 F Pulse Rate 66 Respiratory Rate 20 Blood Pressure 179/106 H Pulse Oximetry 96 Oxygen Delivery Method Room Air MDM - Abdominal Pain <Alfa Madison PA-C - Last Filed: 09/05/23 15:08> MDM Narrative Medical decision making narrative: MDM * differential diagnosis includes but not limited to dental infection, dental abscess, infected wound * Prior records reviewed: History of advanced COPD, established CAD with stent placement. * My lab interpretation: None obtained * My imgaing interpretation: None obtained * Clinical Decision Rules/Scores evaluated: None * Independent discussions with: None ED Course: This is a 62-year-old female presenting to the emergency department to have her laparoscopic incisions evaluate as she was concerned they are ?opening up?. On exam there was no evidence of infection or dehiscence. The wounds appear to be well scabbed over. Patient was reassured. Patient was also complaining of left dental pain. She was very bored poor dentition and concerned for infection, we will treat with antibiotics. No evidence of any abscesses that would benefit from incision and drainage. Shared Decision Making: Discussed plan with the patient who is comfortable with the plan. Social Considerations: None Disposition: Discharged home Discharge Plan Departure Patient Disposition: Home Clinical Impression: Dental infection Instructions: DI for Dental Pain Activity Restrictions/Additional Instructions: Thank you for coming to the [facility] Emergency Department today. Your surgical incision sites appear to be well healing without any evidence of infection. Please proceed with the scheduled follow up you have with your general surgeon. Please take the oral antibiotics as needed for the dental infection. I also recommend ibuprofen and Tylenol as needed for the pain. I hope you feel better soon. Please follow up with your primary care provider within a week if your symptoms continue. If you do not have a primary care provider please contact the [facility] Resource line at [phone]. They will ask some questions about your medical history and help you get set up with a provider in the community. Prescriptions: New clindamycin HCl 300 mg capsule 300 mg PO TID Qty: 30 0RF No Action atorvastatin 40 mg tablet 40 mg PO DAILY Qty: 90 3RF furosemide 40 mg tablet See Rx Instructions PO QDAY PRN (Reason: edema) Qty: 90 3RF Dose Instruction: Take 1/2 to 1 tab daily as needed for edema PO QDAY PRN; Take 1/2 to 1 tab daily as needed for edema Rx Instructions: Take 1/2 to 1 tab daily as needed for edema PO daily PRN; metoprolol tartrate 25 mg tablet 25 mg PO BID Qty: 180 3RF (DME) disabled parking permit See Rx Instructions .ROUTE .MEDSUPPLY Qty: 1 0RF Rx Instructions: I find this patient to be medically disabled and qualify for disabled parking as indicated and signed on the accompanying disabled parking application for individuals. omeprazole 40 mg capsule,delayed release(DR/EC) 40 mg PO BID Qty: 180 3RF Eliquis 5 mg tablet See Rx Instructions .ROUTE .COMPLEX Qty: 60 0RF Dose Instruction: TAKE ONE TABLET BY MOUTH TWICE DAILY Rx Instructions: TAKE ONE TABLET BY MOUTH TWICE DAILY lisinopril 5 mg tablet See Rx Instructions .ROUTE .COMPLEX Qty: 90 3RF Dose Instruction: TAKE ONE TABLET BY MOUTH ONE TIME DAILY Rx Instructions: TAKE ONE TABLET BY MOUTH ONE TIME DAILY trazodone 50 mg tablet 50 mg PO BEDTIME PRN (Reason: insomnia) Qty: 30 1RF hydroxyzine HCl 25 mg tablet 25 mg PO TID PRN (Reason: panic attack(s)) Qty: 90 1RF hydrocodone-acetaminophen 5-325 mg tablet 1 tab PO TID PRN (Reason: pain) Qty: 90 0RF Rx Instructions: Must last 30 days aspirin [Adult Aspirin Regimen] 81 mg tablet,delayed release (DR/EC) 81 mg PO DAILY (DME) Depend Silhouette Women L/XL Misc See Rx Instructions .Route Qty: 40 6RF Rx Instructions: As directed nitroglycerin 0.4 mg tablet, sublingual 0.4 mg sublingual Q5M PRN (Reason: chest pain) Qty: 20 2RF Rx Instructions: do not exceed 3 doses per episode Referrals: Dannie River DO [Primary Care Provider] - Stand Alone Forms: Patient Portal/API ED Sign-out <Komal Guzman DO - Last Filed: 09/06/23 21:02> Cosign ED Attending Cosralphature Attestation: I was immediately available in the department for consultation. Documentation has been reviewed.
--- NOTE | 2023-09-05 14:55 | PC.NURSE ---
provider at bedside for initial eval
--- NOTE | 2023-09-05 15:25 | PC.NURSE ---
bandaids applied to surgical site, per order from provider. applied. left ed in nad with all belongings.
[2023-09-05 15:26] VITALS: PULSE 74; RESP 16; O2SAT 98
== END 2023-09-05 15:27 | disposition home or self-care (01) ==
PROVIDERS: Emergency Provider Physician Assistant Medical; Family Provider Family Medicine; PCP Family Medicine
DX: K04.7 Periapical abscess without sinus (principal)
CPT/HCPCS: 99281; 99283

== ENCOUNTER → 2023-09-08 13:10 | Outpatient (CLI) | payer MEDICARE, MEDICAID, SELFPAY ==
--- NOTE | 2023-09-08 | DI.MG.S_ITS ---
BILATERAL DIGITAL SCREENING MAMMOGRAM 3D/2D WITH CAD: 09/08/2023 CLINICAL: Routine screening. Family history of breast cancer. Comparison is made to exam dated: 11/07/2009 mammogram - [facility]. Both breasts are almost entirely fatty (category a/<25% glandular tissue). Current study was also evaluated with a Computer Aided Detection (CAD) system. No significant masses, calcifications, or other findings are seen in either breast. There has been no significant interval change. IMPRESSION: NEGATIVE There is no mammographic evidence of malignancy. A 1 year screening mammogram is recommended. Based on the Tyrer Cuzick model (a risk assessment model) the patient's lifetime risk is 6.9% and her 10 year risk is 3.2%. According to the ACR, ACS, and NCCN guidelines, an annual breast MRI exam along with mammogram is recommended if the patient's lifetime risk is 20% or greater. This exam was interpreted at Station ID: [id number]. NOTE: For mammograms, a report in lay terms will be sent to the patient. Approximately 15% of breast malignancies will not be visualized mammographically. In the management of a palpable breast mass, a negative mammogram must not discourage biopsy of a clinically suspicious lesion. Electronically Signed By: Scott carpio/felipa:09/08/2023 15:05:17 letter sent: Normal Exam ACR BI-RADS Category 1: Negative [id number]
== END ==
PROVIDERS: Family Provider Family Medicine; PCP Family Medicine; Referring Provider Family Medicine; Visit Provider Family Medicine
DX: Z12.31 Encounter for screening mammogram for malignant neoplasm of breast (principal); Z80.3 Family history of malignant neoplasm of breast
CPT/HCPCS: 77063; 77067

== ENCOUNTER 2023-10-07 11:18 | Emergency (ER) | payer MEDICARE, MEDICAID, SELFPAY ==
[2023-10-07] VITALS (15 sets, daily range): BP systolic 104–139; BP diastolic 56–72; PULSE 54–83; RESP 15–23; TEMP 36.5; O2SAT 94–99; BMI 45.1
--- NOTE | 2023-10-07 11:25 | DI.RAD.S_ITS ---
PROCEDURE: XR CHEST 1V INDICATIONS: chest pain TECHNIQUE: One view of the chest was acquired. COMPARISON: [facility], CR, XR CHEST 1V, 07/10/2023, 15:04. FINDINGS: Surgical changes and devices: None. Lungs and pleura: Lungs are clear. No pleural effusions or pneumothorax. Mediastinum: Mediastinal contours appear normal. Heart size is normal. Bones and chest wall: No suspicious bony lesions. Overlying soft tissues appear unremarkable. IMPRESSION: No acute cardiopulmonary process. Dictated by: Yuliana Ramirez M.D. on 10/07/2023 at 12:05 Approved by: Yuliana Ramirez M.D. on 10/07/2023 at 12:06
[2023-10-07 11:37] LABS: Add Manual Diff / Slide Review NO; Basophils Absolute Auto 100 /uL (0-100); Basophils Percent Auto 0.7 % (0-2); Eosinophils Absolute Auto 100 /uL (0-450); Eosinophils Percent Auto 1.6 % (2-4); Hematocrit 41.8 % (36-46); Hemoglobin 14.4 g/dL (12.0-16.0); Lymphocytes Absolute Auto 3100 /uL (1100-4500); Mean Corpuscular HGB Conc 34.5 % (30-36); Mean Corpuscular Hemoglobin 30.6 PG (26-34); Mean Corpuscular Volume 88.8 fL (80-100); Monocytes Absolute Auto 600 /uL (0-900); Monocytes Percent Auto 7.2 % (3-14); Neutrophils Absolute Auto 3900 /uL (1500-7000); Neutrophils Percent Auto 50.5 % (50-75); Platelet Count 286 X10^3/uL (150-400); Red Blood Cell Count 4.71 X10^6/uL (4.0-5.2); Red Cell Distribution Width 14.1 % (11.6-14.8); White Blood Cell Count 7.7 X10^3/uL (4.5-11.0)
[2023-10-07 11:38] LABS: INR 1.1 (0.9-1.3); Prothrombin Time 12.8 SECONDS (9.4-12.5)
[2023-10-07 11:41] LABS: PTT Partial Thromboplastin Tim 35 SECONDS (25.1-36.5)
[2023-10-07 11:42] LABS: Alanine Aminotransferase 14 IU/L (<35); Albumin 3.8 g/dL (3.5-5.0); Albumin Globulin Ratio 1.2 (1.0-2.8); Alkaline Phosphatase 65 U/L (38-126); Aspartate Aminotransferase 21 IU/L (14-36); Bilirubin Total 0.7 mg/dL (0.2-1.3); Blood Urea Nitrogen 9 mg/dL (7-17); Calcium 9.5 mg/dL (8.4-10.2); Carbon Dioxide 25 mmol/L (22-32); Chloride 105 mmol/L (98-107); Creatine Kinase 56 U/L (30-135); Estimated Glomerular Filt Rate > 60 mL/min (>60); Globulin 3.3 g/dL (1.7-4.1); Glucose 155 mg/dL (80-110); HEMOLYSIS 27 (0-50); Lipase 96 U/L (23-300); Potassium 4.1 mmol/L (3.4-5.1); Sodium 136 mmol/L (137-145); Total Protein 7.1 g/dL (6.3-8.2)
--- NOTE | 2023-10-07 11:48 | ED.CHESTPAIN ---
HPI - Chest Pain General Chief Complaint: Chest Pain Stated Complaint: Chest pain/pressure Time Seen by Provider: 10/07/23 11:47 History of Present Illness HPI narrative: 63-year-old female smoker with cardiac history including recent [place] with heart catheterization about a month ago, hypertension, hyperlipidemia, COPD presents by EMS for evaluation of chest pain that started this morning while at rest. She rates it as moderate in intensity, states it feels like a ?iron bubble? in the center of her chest and is absent of any provocation or radiation. She denies dizziness, weakness or lightheadedness. She denies any exertional symptoms or recent exercise intolerance. She states that she felt a bit anxious and assume that that is all it was and took hydroxyzine, forgetting that in the past she had an allergic reaction to this. She is subsequently developed some itching and mild rash, no trouble swallowing or breathing. She took 1 of her own nitro and during all this her pain completely resolved prior to her arrival. She denies runny nose, sore throat or cough. No recent trauma or injury. Related Data Home Medications Medication Instructions Recorded Confirmed aspirin 81 mg tablet,delayed 81 mg PO DAILY 07/21/23 08/14/23 release (Adult Aspirin Regimen) Previous Rx's Medication Instructions Recorded atorvastatin 40 mg tablet 40 mg PO DAILY #90 tabs 01/16/22 furosemide 40 mg tablet See Rx Instructions PO QDAY PRN 01/16/22 edema #90 tabs metoprolol tartrate 25 mg tablet 25 mg PO BID #180 tabs 01/16/[address] #1 ea 03/05/22 omeprazole 40 mg capsule,delayed 40 mg PO BID #180 caps 08/22/22 release apixaban 5 mg tablet (Eliquis) See Rx Instructions .Route 10/03/22 .COMPLEX #60 tabs nitroglycerin 0.4 mg sublingual 0.4 mg sublingual Q5M PRN chest 11/27/22 tablet pain #20 tabs lisinopril 5 mg tablet See Rx Instructions .Route 12/09/22 .COMPLEX #90 tabs trazodone 50 mg tablet 50 mg PO BEDTIME PRN insomnia #30 12/25/22 tabs hydroxyzine HCl 25 mg tablet 25 mg PO TID PRN panic attack(s) 01/02/23 #90 tabs diaper,brief,adult,disposable #40 ea 07/21/23 (Depend [employer] L/XL) clindamycin HCl 300 mg capsule 300 mg PO TID #30 caps 09/05/23 hydrocodone 5 mg-acetaminophen 325 1 tab PO TID PRN pain #90 tabs 09/10/23 mg tablet hydroxyzine HCl 25 mg tablet 25 mg PO TID PRN anxiety #60 tabs 09/15/23 Allergies Allergy/AdvReac Type Severity Reaction Status Date / Time lidocaine [LIDOCAINE] Allergy Unknown Verified 09/05/23 14:29 Penicillins [PENICILLINS] Allergy Unknown Verified 09/05/23 14:29 prednisone [PREDNISONE] Allergy Unknown Verified 09/05/23 14:29 shellfish derived Allergy Unknown Verified 09/05/23 14:29 [SHELLFISH DERIVED] venom-honey bee Allergy Unknown Verified 09/05/23 14:29 [BEE VENOM (HONEY BEE)] lorazepam AdvReac Mild Rash Verified 09/05/23 14:29 oxycodone AdvReac Mild Rash Verified 09/05/23 14:29 procaine [PROCAINE] AdvReac Unknown Verified 09/05/23 14:29 Review of Systems Review of Systems Narrative: GENERAL: See HPI HEENT: Denies sinus pain, ear pain, sore throat, difficulty swallowing, dizziness. RESPIRATORY: Denies dyspnea, cough, wheezing, hemoptysis, sputum. CARDIOVASCULAR: See HPI GASTROINTESTINAL: Denies nausea, vomiting, abdominal pain, diarrhea, constipation, melena. : Denies dysuria, frequency, incontinence, hematuria, urinary retention. MUSCULOSKELETAL: denies weakness, joint pain, or bony pain SKIN: See HPI NEUROLOGIC: Denies weakness, headache, numbness, change in speech, confusion, seizures, incoordination. PSYCHIATRIC: No concerning psychosocial issues. 12 point review of systems is negative except for those stated above Patient History Medical History Onychomycosis Paroxysmal atrial fibrillation Tobacco use disorder Hyperglycemia Bradycardia Rectocele Cystocele Postmenopausal atrophic vaginitis H/O coronary stenosis History of kidney stones Hyperlipidemia Gait difficulty Insomnia Right knee pain Cognitive impairment Hearing loss Family history of osteoporosis Intention tremor Hypertension GERD (gastroesophageal reflux disease) Nephrolithiasis Chronic low back pain Chronic left hip pain Urinary incontinence Coronary artery disease Esophageal reflux Rheumatoid arthritis Osteoarthritis Sleep apnea Depression Anxiety Migraines Shoulder pain Gout Chronic back pain Vertigo Hearing loss History of urinary incontinence Kidney stones Crohn's disease Surgical History History of umbilical hernia repair Hx of hernia repair History of hysterectomy (~2000) Family History Brother Age: 58 Hypertension High cholesterol Father Diabetes mellitus Heart disease Hypertension Grandmother Heart disease Mother Age: 82 Heart disease Grandfather Stroke Grandfather Stroke Grandmother Cancer Sister Liver failure Social History marital status: number of children: 6 household members: family Smoking Status: Current every day smoker Tobacco: How many years used: 40 quit status: not considering quitting alcohol intake: current (Rarely) substance use type: does not use caffeine: Yes Smoking Status: Current every day smoker tobacco type: cigarettes alcohol intake frequency: holidays/special occasions only Substance Use Type: does not use Exam Initial Vital Signs Initial Vital Signs: Vital Signs Pulse Oximetry 95 10/07/23 11:22 Course Orders Ordered: Discontinued Medications Diphenhydramine HCl (Diphenhydramine 50 Mg/Ml Vial) 50 mg IV NOW ONE Stop: 10/07/23 11:48 Last Admin: 10/07/23 12:02 Dose: 50 mg Documented By: ANTONINO Famotidine (Famotidine 20 Mg/2 Ml Vial) 20 mg IV NOW [facility] Famotidine (Famotidine 20 Mg/2 Ml Vial) 20 mg IV NOW [facility] Last Admin: 10/07/23 12:02 Dose: 20 mg Documented By: ANTONINO Vital Signs Vital signs: Vital Signs - 8 hr 10/07/23 11:22 10/07/23 11:24 10/07/23 11:24 Temperature Pulse Rate 71 Respiratory Rate 18 Blood Pressure 111/59 L Pulse Oximetry 95 96 Oxygen Delivery Method 10/07/23 11:27 Temperature 97.7 F Pulse Rate 63 Respiratory Rate 20 Blood Pressure 111/57 L Pulse Oximetry 96 Oxygen Delivery Method Room Air MDM - Chest Pain Lab Data 10/07/23 11:15 10/07/23 11:15 Labs: Lab Results 10/07/23 10/07/23 10/07/23 Range/Units 11:15 11:47 14:42 WBC 7.7 (4.5-11.0) X10^3/uL RBC 4.71 (4.0-5.2) X10^6/uL Hgb 14.4 (12.0-16.0) g/dL Hct 41.8 (36-46) % MCV 88.8 (80-100) fL MCH 30.6 (26-34) PG MCHC 34.5 (30-36) % RDW 14.1 (11.6-14.8) % Plt Count 286 (150-400) X10^3/uL Neut % (Auto) 50.5 (50-75) % Lymph % (Auto) 40.0 (25-40) % [place] % (Auto) 7.2 (3-14) % Eos % (Auto) 1.6 L (2-4) % Baso % (Auto) 0.7 (0-2) % Neut # (Auto) 3900 (6811-0051) /uL Lymph # (Auto) 3100 (8538-6804) /uL [place] # (Auto) 600 (0-900) /uL Eos # (Auto) 100 (0-450) /uL Baso # (Auto) 100 (0-100) /uL PT 12.8 H (9.4-12.5) SECONDS INR 1.1 (0.9-1.3) APTT 35 (25.1-36.5) SECONDS Sodium 136 L (137-145) mmol/L Potassium 4.1 (3.4-5.1) mmol/L Chloride 105 (98-107) mmol/L Carbon Dioxide 25 (22-32) mmol/L BUN 9 (7-17) mg/dL Creatinine 0.53 (0.52-1.04) mg/dL Estimated GFR > 60 (>60) mL/min BUN/Creatinine Ratio 17.0 (6-22) Glucose 155 H (80-110) mg/dL Calcium 9.5 (8.4-10.2) mg/dL Magnesium 2.0 (1.6-2.3) mg/dL Total Bilirubin 0.7 (0.2-1.3) mg/dL AST 21 (14-36) IU/L ALT 14 (<35) IU/L Alkaline Phosphatase 65 (38-126) U/L Total Creatine Kinase 56 53 (30-135) U/L Troponin I < 0.012 < 0.012 (0.01-0.034) ng/mL NT-Pro-B Natriuret Pep 63 (<125) pg/mL Total Protein 7.1 (6.3-8.2) g/dL Albumin 3.8 (3.5-5.0) g/dL Globulin 3.3 (1.7-4.1) g/dL Albumin/Globulin Ratio 1.2 (1.0-2.8) Lipase 96 (23-300) U/L MDM Narrative Medical decision making narrative: [63] year old patient presents with epigastric discomfort followed by itchy rash Multiple etiologies for patient's symptoms considered including, but not limited to: [Cardiac ischemia versus pulmonary embolism versus esophageal spasm versus anxious response versus other] Prior Charts reviewed in our EMR Primary Historian: patient Labs reviewed and interpreted by myself: No significant abnormalities requiring intervention, troponin negative x2 Imaging reviewed: No acute process Patient with brief episode of chest pain lasting seconds, possibly resolved by nitro, no exertional symptoms, no exercise intolerance or cardiac equivalent such as dizziness, weakness, lightheadedness, no ischemic change on EKG and symptom-free for the course of the visit. Pulmonary embolism considered but thought unlikely given lack of ongoing symptoms, stable vitals and the use of anticoagulation. Patient asymptomatic for duration of visit, recent extensive cardiac workup no indication for further evaluation Patient's symptoms improved over duration of stay with above-stated therapies. Findings and discharge diagnosis discussed with patient/family followed by verbalization of understanding Return precautions discussed with patient/family whom verbalize understanding of diagnosis and plan Discharge Plan Departure Patient Disposition: Home Clinical Impression: Chest pain Instructions: DI for Chest Pain Activity Restrictions/Additional Instructions: *You have been diagnosed with [chest pain. As we discussed your history and physical exam as well as labs and EKGs are reassuring and there is no sign of a heart attack or other serious condition that requires a specific or immediate intervention.] *What to do: *Please continue to take your regular medications as directed, but avoid any further use of the hydroxyzine as we discussed *Please follow up with your primary care provider in 2-3 days, call for an appointment. Let them know you were seen in the Emergency Department and that we ask that you be seen in follow up. We will electronically transmit a record of today's note if your PCP is in our system *Return to Emergency Department if you should have any new, worsening or concerning symptoms, such as [fever greater than 101 F, shaking chills, worsening pain, persistent vomiting or other bothersome symptoms] Prescriptions: No Action atorvastatin 40 mg tablet 40 mg PO DAILY Qty: 90 3RF furosemide 40 mg tablet See Rx Instructions PO QDAY PRN (Reason: edema) Qty: 90 3RF Dose Instruction: Take 1/2 to 1 tab daily as needed for edema PO QDAY PRN; Take 1/2 to 1 tab daily as needed for edema Rx Instructions: Take 1/2 to 1 tab daily as needed for edema PO daily PRN; metoprolol tartrate 25 mg tablet 25 mg PO BID Qty: 180 3RF (DME) disabled parking permit See Rx Instructions .ROUTE .MEDSUPPLY Qty: 1 0RF Rx Instructions: I find this patient to be medically disabled and qualify for disabled parking as indicated and signed on the accompanying disabled parking application for individuals. omeprazole 40 mg capsule,delayed release(DR/EC) 40 mg PO BID Qty: 180 3RF Eliquis 5 mg tablet See Rx Instructions .ROUTE .COMPLEX Qty: 60 0RF Dose Instruction: TAKE ONE TABLET BY MOUTH TWICE DAILY Rx Instructions: TAKE ONE TABLET BY MOUTH TWICE DAILY lisinopril 5 mg tablet See Rx Instructions .ROUTE .COMPLEX Qty: 90 3RF Dose Instruction: TAKE ONE TABLET BY MOUTH ONE TIME DAILY Rx Instructions: TAKE ONE TABLET BY MOUTH ONE TIME DAILY trazodone 50 mg tablet 50 mg PO BEDTIME PRN (Reason: insomnia) Qty: 30 1RF hydroxyzine HCl 25 mg tablet 25 mg PO TID PRN (Reason: panic attack(s)) Qty: 90 1RF hydrocodone-acetaminophen 5-325 mg tablet 1 tab PO TID PRN (Reason: pain) Qty: 90 0RF Rx Instructions: Must last 30 days hydroxyzine HCl 25 mg tablet 25 mg PO TID PRN (Reason: anxiety) Qty: 60 1RF aspirin [Adult Aspirin Regimen] 81 mg tablet,delayed release (DR/EC) 81 mg PO DAILY (DME) Depend [employer] L/XL Misc See Rx Instructions .Route Qty: 40 6RF Rx Instructions: As directed nitroglycerin 0.4 mg tablet, sublingual 0.4 mg sublingual Q5M PRN (Reason: chest pain) Qty: 20 2RF Rx Instructions: do not exceed 3 doses per episode clindamycin HCl 300 mg capsule 300 mg PO TID Qty: 30 0RF Referrals: Dannie River DO [Primary Care Provider] - Stand Alone Forms: Patient Portal/API
[2023-10-07 11:54] LABS: Troponin I < 0.012 ng/mL (0.01-0.034)
[2023-10-07] MEDS: FAMOTIDINE 20 MG/2 ML VIAL IV (12:02)
[2023-10-07] MEDS: diphenhydrAMINE 50 MG/ML VIAL IV (12:02)
[2023-10-07 12:09] LABS: NT-proBNP (BNP-Adult 18+) 63 pg/mL (<125)
[2023-10-07 15:01] LABS: Creatine Kinase 53 U/L (30-135)
[2023-10-07 15:14] LABS: Troponin I < 0.012 ng/mL (0.01-0.034)
== END 2023-10-07 16:37 | disposition home or self-care (01) ==
PROVIDERS: Emergency Provider Emergency Medicine; Family Provider Family Medicine; PCP Family Medicine
DX: R07.9 Chest pain, unspecified (principal); I10 Essential (primary) hypertension; J44.9 Chronic obstructive pulmonary disease, unspecified; Z79.01 Long term (current) use of anticoagulants
CPT/HCPCS: 36415; 71045; 80053; 82550; 83690; 83735; 83880; 84484; 85025; 85610; 85730; 93005; 96374; 96375; 96376; 99284; J1200

== ENCOUNTER → 2025-03-21 15:05 | Outpatient (CLI) | payer MEDICARE, MEDICAID, SELFPAY ==
--- NOTE | 2025-03-21 15:13 | DI.MG.S_ITS ---
MM screening mammo BI: 03/21/2025. BI-RADS: 1 CLINICAL: 64-year old female for bilateral screening mammogram. Tyrer-Cuzick lifetime risk of 5.8%. No personal or first-degree family history of breast cancer. Current reported family history of breast cancer: maternal grandmother and maternal aunt. PRIOR EXAMS 09/08/2023. MAMMOGRAPHY TECHNIQUE: 2D and 3D (tomosynthesis) digital mammographic views obtained, with additional images as needed for full coverage. Current study was also evaluated with a Computer Aided Detection (CAD) system. DENSITY A. The breasts are almost entirely fatty. MAMMOGRAPHY FINDINGS Bilateral: No suspicious mass, asymmetry, microcalcification, or other abnormality seen. IMPRESSION: * No evidence of malignancy. RECOMMENDATIONS Bilateral * Annual screening mammography. OVERALL ASSESSMENT CATEGORY BI-RADS-1: Negative. The [employer] recommends annual screening mammography beginning at age 40 for women with average risk of breast cancer. ELECTRONICALLY SIGNED: Odilia Mcneil M.D. on 03/22/2025 at 06:54:10 AM PT Interpreting Station ID: [id number]
== END ==
PROVIDERS: Family Provider Family Medicine; PCP Family Medicine; Referring Provider Family Medicine; Visit Provider Family Medicine
DX: Z12.31 Encounter for screening mammogram for malignant neoplasm of breast (principal); Z80.3 Family history of malignant neoplasm of breast
CPT/HCPCS: 77063; 77067

== ENCOUNTER → 2025-05-01 10:48 | Outpatient (CLI) | payer MEDICARE, MEDICAID, SELFPAY ==
--- NOTE | 2025-05-01 10:50 | DI.RAD.S_ITS ---
PROCEDURE: XR ELBOW RT MIN 3V INDICATIONS: eval and treat TECHNIQUE: 3 views of the elbow were acquired. COMPARISON: None. FINDINGS: Bones: No fractures or dislocations. No suspicious bony lesions. Soft tissues: No elbow joint effusion. No suspicious soft tissue calcifications. IMPRESSION: No acute osseous abnormality. If pain persists with conservative management, consider repeat x-ray in 10-14 days or cross-sectional imaging. Dictated by: Sal Fuentes M.D. on 05/01/2025 at 12:27 Approved by: Sal Fuentes M.D. on 05/01/2025 at 12:28
--- NOTE | 2025-05-01 10:50 | DI.RAD.S_ITS ---
PROCEDURE: XR KNEE LT 3V INDICATIONS: eval pain TECHNIQUE: 3 views of the knee were acquired. COMPARISON: [facility], CR, XR KNEE RT 3V, 04/10/2022, 13:11. FINDINGS: Bones: No fractures or dislocations. Tricompartmental osteoarthritic changes with osteophytosis and moderate medial compartment joint space narrowing. No suspicious bony lesions. Soft tissues: No joint effusion. No suspicious soft tissue calcifications. IMPRESSION: No acute osseous abnormalities. Osteoarthritic changes, moderate within the medial compartment. Dictated by: Sal Fuentes M.D. on 05/01/2025 at 12:28 Approved by: Sal Fuentes M.D. on 05/01/2025 at 12:29
--- NOTE | 2025-05-01 10:50 | DI.RAD.S_ITS ---
PROCEDURE: XR HIP W PEL IF DONE LT 2V INDICATIONS: eval pain TECHNIQUE: AP pelvis with lateral view(s) of the left hip(s). COMPARISON: [facility], CR, XR HIP W PEL IF DONE FREDRICK 3TO4V, 04/10/2022, 13:11. FINDINGS: Bones: No fractures or dislocations. Moderate bilateral hip joint degeneration with joint space narrowing and marginal spurring. Pelvic ring appears intact. No suspicious bony lesions. Soft tissues: The visualized bowel gas pattern is normal. No suspicious soft tissue calcifications. IMPRESSION: No acute osseous abnormalities. Moderate bilateral hip joint degeneration is similar to prior. Dictated by: Sal Fuentes M.D. on 05/01/2025 at 12:27 Approved by: Sal Fuentes M.D. on 05/01/2025 at 12:27
== END ==
PROVIDERS: Family Provider Family Medicine; PCP Family Medicine; Referring Provider Family Medicine; Visit Provider Family Medicine
DX: M16.0 Bilateral primary osteoarthritis of hip (principal); M25.552 Pain in left hip; M25.562 Pain in left knee; M25.521 Pain in right elbow
CPT/HCPCS: 73080; 73502; 73562